=== PATIENT | female | born 1970 | race Caucasian/White ===

== ENCOUNTER 2016-10-02 17:45 | Inpatient (IN) | payer MEDICARE, OTHER ==
[2016-10-02] MEDS ORDERED: MIDAZOLAM (PF) 1 MG/ML 5 ML VIAL IV STA (17:47)
[2016-10-02] MEDS ORDERED: SUCCINYLCHOLINE CHLORIDE VIAL 200 MG/10 ML VIAL IV STA (17:48)
[2016-10-02] MEDS ORDERED: PROPOFOL 1,000 MG/100 ML VIAL IV ONE (17:51)
[2016-10-02] MEDS ORDERED: SODIUM CHLORIDE 0.9% 1,000 ML IV STA (17:51)
[2016-10-02 17:54] LABS: Glucose,Whole Blood 159 mg/dL (75-99)
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
[2016-10-02 18:02] LABS: Basophils # (A) 0.1 k/uL (0-0.2); Basophils % (A) 0 %; CH 31.3; CHCM 33.7; Eosinophils # (A) 0.2 k/uL (0-0.7); Eosinophils % (A) 1 %; HCT 44.5 % (34.0-46.0); HDW 3.09; HGB 14.7 gm/dL (11.4-16.0); Luc # (Auto) 0.16; Luc % (Auto) 1; Lymphocytes # (A) 1.2 k/uL (1.0-4.8); Lymphocytes % (A) 8 %; MCH 30.9 pg (25.0-35.0); MCHC 33.1 g/dL (31.0-37.0); MCV 93.3 fL (80.0-100.0); Mean Platelet Volume 7.6; Monocytes # (A) 0.6 k/uL (0-1.0); Monocytes % (A) 4 %; Neutrophils # (A) 12.8 k/uL (1.3-7.7); Neutrophils % (A) 85 %; RBC 4.77 m/uL (3.80-5.40); WBC (Perox) 14.58
[2016-10-02 18:11] LABS: INR 1.1 (<1.2)
--- NOTE | 2016-10-02 18:17 | XR ---
EXAMINATION TYPE: XR chest 1V portable DATE OF EXAM: 10/02/2016 COMPARISON: 04/21/2014 HISTORY: Check tube placement TECHNIQUE: Single frontal view of the chest is obtained. FINDINGS: Endotracheal tube appears in good position. Nasogastric tube appears in good position. The re is some mild infiltrate and atelectasis in the right upper lobe. There is no gross heart failure. There are chest leads. IMPRESSION: New right upper lobe mild infiltrate and atelectasis. Tubing appears in good position. M ild elevated right diaphragm also consistent with volume loss in the right hemithorax.
[2016-10-02 18:18] LABS: ALT 33 U/L (9-52); AST 30 U/L (14-36); Acetaminophen <10.0 ug/mL; Alcohol <10 mg/dL; Alkaline Phosphatase 76 U/L (38-126); Anion Gap 13 mmol/L; Blood Urea Nitrogen 12 mg/dL (7-17); Calcium 8.6 mg/dL (8.4-10.2); Carbon Dioxide 20 mmol/L (22-30); Chloride 114 mmol/L (98-107); Glucose 152 mg/dL (74-99); Non-African American GFR(MDRD) >60 (>60 ml/min/1.73 sqM); Salicylate <1.0 mg/dL; Sodium 147 mmol/L (137-145); Total Bilirubin 0.8 mg/dL (0.2-1.3); Total Protein 6.9 g/dL (6.3-8.2)
[2016-10-02 18:25] LABS: Creatine Kinase 388 U/L (30-135)
[2016-10-02 18:32] LABS: Appearance,Urine Cloudy (Clear); Bilirubin,Urine Negative (Negative); Glucose,Urine (UA) Negative (Negative); Ketones,Urine 1+ (Negative); Leukocyte Esterase,Urine Moderate (Negative); Mucus,Urine Rare /hpf; Nitrite,Urine Negative (Negative); Particle Count 74300; Protein,Urine 1+ (Negative); RBC,Urine 2 /hpf (0-5); Specific Gravity,Urine 1.016 (1.001-1.035); Squamous Epithelial Cell,Urine <1 /hpf (0-4); UA Billing (MACRO vs. MICRO) MICRO; WBC,Urine 6 /hpf (0-5)
[2016-10-02] MEDS ORDERED: PNEUMONIA PROTOCOL UTILIZED 1 EACH MISC PO PRN (18:35)
[2016-10-02] MEDS ORDERED: PIPERACILLIN-TAZOBACTAM 3.375 GM in DEXTROSE/WATER 1 50ML.BAG IVPB STA (18:35)
[2016-10-02] MEDS ORDERED: LEVOFLOXACIN 750MG-D5W PMX 750 MG in DEXTROSE/WATER 1 150ML.BAG IVPB STA (18:35)
[2016-10-02 18:38] LABS: Troponin I <0.012 ng/mL (0.000-0.034)
[2016-10-02 18:44] LABS: Creatine Kinase MB 4.6 ng/mL (0.0-2.4)
[2016-10-02 19:02] LABS: ABG Base Excess -2.3 mmol/L; ABG HCO3 22 mmol/L (21-25); ABG PCO2 40 mmHg (35-45); ABG PH 7.36 (7.35-7.45); ABG PO2 279 mmHg (83-108); ABG TCO2 24 mmol/L (19-24)
[2016-10-02] MEDS ORDERED: NALOXONE 0.4 MG/ML 1 ML VIAL IV PRN (19:30)
[2016-10-02] MEDS ORDERED: SODIUM CHLORIDE 0.9% 1,000 ML IV SCH (19:30)
[2016-10-02 20:41] LABS: Glucose,Whole Blood 134 mg/dL (75-99)
[2016-10-02] MEDS: PIPERACILLIN-TAZOBACTAM 3.375 GM in DEXTROSE/WATER 1 50ML.BAG IVPB SCH (21:17)
[2016-10-02] MEDS: CHLORHEXIDINE GLUCONATE 15 ML CUP MUCOUS MEM SCH (21:17)
[2016-10-02] MEDS: FAMOTIDINE 20 MG/2 ML VIAL IV SCH (21:17)
[2016-10-02] MEDS ORDERED: Magnesium Replacement Protocol 1 EACH MISC MISCELLANE PRN (23:07)
[2016-10-03] MEDS: MAGNESIUM SULFATE-D5W PMX 1 GM in DEXTROSE/WATER 1 100ML.BAG IVPB SCH ×2 (00:01→01:04)
[2016-10-03] MEDS: SODIUM CHLORIDE 0.45% 1,000 ML IV SCH ×6 (00:01→23:47)
[2016-10-03] MEDS: HEPARIN SODIUM,PORCINE 5,000 UNIT/ML 1 ML VIAL SQ SCH ×4 (00:02→23:48)
[2016-10-03] MEDS: PROPOFOL 1,000 MG/100 ML VIAL IV SCH ×5 (00:02→23:48)
[2016-10-03 01:05] LABS: Glucose,Whole Blood 134 mg/dL (75-99)
[2016-10-03 01:16] LABS: Basophils # (A) 0.1 k/uL (0-0.2); Basophils % (A) 1 %; CH 30.9; CHCM 33.2; Eosinophils # (A) 0.2 k/uL (0-0.7); Eosinophils % (A) 1 %; HCT 41.2 % (34.0-46.0); HDW 3.09; HGB 13.5 gm/dL (11.4-16.0); Luc # (Auto) 0.16; Luc % (Auto) 1; Lymphocytes # (A) 1.4 k/uL (1.0-4.8); Lymphocytes % (A) 10 %; MCH 30.7 pg (25.0-35.0); MCHC 32.7 g/dL (31.0-37.0); MCV 93.7 fL (80.0-100.0); Mean Platelet Volume 7.6; Monocytes # (A) 0.8 k/uL (0-1.0); Monocytes % (A) 6 %; Neutrophils # (A) 11.5 k/uL (1.3-7.7); Neutrophils % (A) 82 %; RDW 15.3 % (11.5-15.5); WBC 14.1 k/uL (3.8-10.6); WBC (Perox) 14.05
[2016-10-03] MEDS ORDERED: CALCIUM GLUCONATE 1,000 MG in SODIUM CHLORIDE 0.9% 100 ML IVPB ONE (03:50)
[2016-10-03] MEDS: PIPERACILLIN-TAZOBACTAM 3.375 GM in DEXTROSE/WATER 1 50ML.BAG IVPB SCH ×3 (04:17→23:46)
[2016-10-03 05:24] LABS: Basophils # (A) 0.1 k/uL (0-0.2); Basophils % (A) 0 %; CH 30.6; Eosinophils # (A) 0.3 k/uL (0-0.7); Eosinophils % (A) 2 %; HCT 42.8 % (34.0-46.0); HDW 3.18; HGB 14.7 gm/dL (11.4-16.0); Luc # (Auto) 0.26; Luc % (Auto) 2; Lymphocytes # (A) 1.7 k/uL (1.0-4.8); Lymphocytes % (A) 10 %; MCHC 34.3 g/dL (31.0-37.0); MCV 90.4 fL (80.0-100.0); Mean Platelet Volume 8.4; Monocytes # (A) 0.7 k/uL (0-1.0); Monocytes % (A) 5 %; Neutrophils # (A) 13.1 k/uL (1.3-7.7); Neutrophils % (A) 82 %; RBC 4.74 m/uL (3.80-5.40); RDW 14.3 % (11.5-15.5); WBC 16.1 k/uL (3.8-10.6); WBC (Perox) 16.01
[2016-10-03 05:27] LABS: ABG Base Excess -0.9 mmol/L; ABG HCO3 24 mmol/L (21-25); ABG PCO2 32 mmHg (35-45); ABG PH 7.46 (7.35-7.45); ABG PO2 87 mmHg (83-108); ABG TCO2 24 mmol/L (19-24)
[2016-10-03 05:59] LABS: ALT 27 U/L (9-52); AST 27 U/L (14-36); Alkaline Phosphatase 67 U/L (38-126); Anion Gap 11 mmol/L; Blood Urea Nitrogen 12 mg/dL (7-17); Calcium 8.6 mg/dL (8.4-10.2); Carbon Dioxide 23 mmol/L (22-30); Chloride 113 mmol/L (98-107); Glucose 86 mg/dL (74-99); Magnesium 2.6 mg/dL (1.6-2.3); Non-African American GFR(MDRD) >60 (>60 ml/min/1.73 sqM); Phosphorous 3.3 mg/dL (2.5-4.5); Sodium 147 mmol/L (137-145); Total Bilirubin 0.4 mg/dL (0.2-1.3)
[2016-10-03] MEDS: LORazepam 2 MG/ML SYRINGE IV PRN ×3 (06:05→20:36)
[2016-10-03 06:53] LABS: Glucose,Whole Blood 90 mg/dL (75-99)
[2016-10-03] MEDS: IPRATROPIUM-ALBUTEROL 3 ML NEB INHALATION PRN ×5 (07:59→23:00)
--- NOTE | 2016-10-03 08:07 | XR ---
EXAMINATION TYPE: XR chest 1V DATE OF EXAM: 10/03/2016 COMPARISON: 10/02/2016 HISTORY: Shortness of breath TECHNIQUE: Single frontal view of the chest is obtained. FINDINGS: Endotracheal and NG tubes are unchanged in position. There is new airspace consolidation right lower lobe which may reflect atelectasis infiltrate and/or effusion. The left lung is clear. Cardiomediasti nal silhouette is stable. IMPRESSION: 1. There is new airspace consolidation right lower lobe which may reflect atelectasis infiltrate and /or effusion.
[2016-10-03] MEDS ORDERED: ESOMEPRAZOLE 20 MG in SODIUM CHLORIDE 0.9% 50 ML IVPB SCH (09:00)
[2016-10-03] MEDS: CHLORHEXIDINE GLUCONATE 15 ML CUP MUCOUS MEM SCH ×2 (09:07→23:46)
[2016-10-03] MEDS: FAMOTIDINE 20 MG/2 ML VIAL IV SCH ×2 (09:07→23:46)
[2016-10-03 11:14] LABS: Basophils # (A) 0.1 k/uL (0-0.2); Basophils % (A) 1 %; CH 31.5; CHCM 34.4; Eosinophils # (A) 0.1 k/uL (0-0.7); Eosinophils % (A) 1 %; HCT 38.6 % (34.0-46.0); HDW 3.07; HGB 13.2 gm/dL (11.4-16.0); Immature Gran Flag Marked; Luc # (Auto) 0.14; Luc % (Auto) 1; Lymphocytes # (A) 0.6 k/uL (1.0-4.8); Lymphocytes % (A) 4 %; MCH 31.4 pg (25.0-35.0); MCHC 34.1 g/dL (31.0-37.0); MCV 92.1 fL (80.0-100.0); Mean Platelet Volume 9.1; Monocytes # (A) 0.7 k/uL (0-1.0); Monocytes % (A) 5 %; Neutrophils # (A) 11.3 k/uL (1.3-7.7); Neutrophils % (A) 88 %; RDW 14.9 % (11.5-15.5); WBC 12.8 k/uL (3.8-10.6); WBC (Perox) 13.24
--- NOTE | 2016-10-03 11:18 | P.CNPUL ---
History of Present Illness Consult date: 10/03/16 Requesting physician: Angelito Galvan Reason for consult: other Chief complaint: ICU mangement History of present illness: This is a 46-year-old female patient being seen, examined and evaluated today in the intensive care unit. This patient presented to the emergency room on via EMS for overdose. Apparently the patient was at home and her roommate found her unresponsive around multiple bottles of pills, therefore the roommate forced her to vomit before EMS arrival. When EMS arrived they did no there was pill fragments in her vomit. EMS did give the patient Narcan with minimal improvement of her symptoms. It is unclear what medications the patient did consume however there is speculation that it was morphine, gabapentin as well as baclofen. The patient's urine drug screen was positive for opiates, tricyclic antidepressants, cocaine and marijuana. Poison control has been contacted and they have been assisting in the case as well. Upon examination the patient is in sync with mechanical ventilation, propofol on for sedation. Ventilator settings are assist control with a rate of 14, tidal volume 400, FiO2 of 50%, and a PEEP of 5. She has had blood pressures systolically 90s and average, she has not required vasopressors at this time. Patient's chest x-ray from this morning has been reviewed and does reveal that there is a new air space consolidation in the right lower lobe which may reflect atelectasis infiltrate and/or effusion. The patient also underwent a sedation holiday this morning her propofol was off for approximately 60 minutes. The patient was able to move all 4 extremities she did have a cough and a gag reflex, she was thrashing in the bed however she never opened her eyes , never followed commands and her respiratory rate was in the 40s, therefore she was put back on assist control mode. Currently there is no family listed in the chart, she has no power of prep cook or next of kin that we are aware of, we will look to get anymore information from the roommate that found her. Of note, according the the timeline of when the patient ingested the pills and vomited untill the roommate called EMS was a 12 hour span that the patient was "passed out". It is unclear if the patient woke up and took more pills in between vomiting the pills up the first time, untill she found unresponsive 12 hours later. 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" History of Any Multi-Drug Resistant Organisms: None Reported, Unobtainable Past Surgical History: Unable to Obtain, Appendectomy, Tubal Ligation Additional Past Surgical History / Comment(s): neck fusion Past Anesthesia/Blood Transfusion Reactions: No Reported Reaction, Unable to Obtain Past Psychological History: No Psychological Hx Reported, Unable to Obtain Smoking Status: Unknown if ever smoked Past Alcohol Use History: None Reported, Unable to Obtain Past Drug Use History: None Reported, Unable to Obtain Additional Drug Use History / Comment(s): tox screen positive - Past Family History Father History Unknown: Yes Family Medical History: Unable to Obtain Mother History Unknown: Yes Family Medical History: Unable to Obtain Medications and Allergies Home Medications Medication Instructions Recorded Confirmed Type Baclofen [Lioresal] 20 mg PO TID 10/02/16 10/02/16 History Choline Citrate 650mg 650 mg PO BID 10/02/16 10/02/16 History Cyanocobalamin (Vitamin B-12) 1,000 mcg PO DAILY 10/02/16 10/02/16 History [Vitamin B-12] Folic Acid 0.4 mg PO DAILY 10/02/16 10/02/16 History Gabapentin 600 mg PO Q4H 10/02/16 10/02/16 History HYDROcodone/IBUPROFEN [Xylon 0.5 tab PO BID 10/02/16 10/02/16 History 10-200 mg Tablet] Levothyroxine Sodium [Synthroid] 137 mcg PO DAILY 10/02/16 10/02/16 History Loratadine 10 mg PO DAILY 10/02/16 10/02/16 History Morphine Sulfate [Ms Contin] 15 mg PO HS 10/02/16 10/02/16 History Morphine Sulfate [Ms Contin] 30 mg PO QAM 10/02/16 10/02/16 History Naproxen 500 mg PO Q12H 10/02/16 10/02/16 History Nortriptyline [Pamelor] 100 mg PO HS 10/02/16 10/02/16 History Omeprazole 40 mg PO DAILY 10/02/16 10/02/16 History Oxybutynin Chloride [Ditropan] 5 mg PO TID 10/02/16 10/02/16 History Pyridoxine [Vitamin B-6] 50 mg PO DAILY 10/02/16 10/02/16 History Allergies Allergy/AdvReac Type Severity Reaction Status Date / Time acetaminophen Allergy Unknown Verified 10/02/16 17:54 aspirin Allergy Rash/Hives Verified 10/02/16 17:54 DAIRY Allergy Vomiting Uncoded 10/02/16 17:54 Physical Exam Vitals: Vital Signs Temp Pulse Pulse Resp BP BP Pulse Ox 10/03/16 10:00 97 14 71/46 99 10/03/16 09:30 100 14 97/65 99 10/03/16 09:00 106 H 17 116/69 100 10/03/16 08:30 105 H 14 90/52 99 10/03/16 08:10 106 H 10/03/16 08:00 99.3 F 106 H 15 98/61 100 10/03/16 07:30 109 H 19 109/66 99 10/03/16 07:00 105 H 17 124/73 100 10/03/16 06:30 102 H 16 143/76 99 10/03/16 06:00 118 H 22 143/82 98 10/03/16 05:30 89 12 151/91 98 10/03/16 05:00 98 15 117/75 99 10/03/16 04:30 84 14 138/82 98 10/03/16 04:00 98.4 F 98 16 116/76 99 10/03/16 03:30 85 14 110/73 99 10/03/16 03:00 85 14 108/74 99 10/03/16 02:30 86 12 106/76 97 10/03/16 02:00 86 14 102/73 95 10/03/16 01:30 90 13 120/81 94 L 10/03/16 01:00 90 11 L 108/84 92 L 10/03/16 00:30 88 12 114/84 92 L 10/03/16 00:00 98.1 F 87 16 143/76 94 L 10/02/16 23:30 98 16 94/57 98 10/02/16 23:08 90 14 94/57 90 L 10/02/16 23:00 94 15 94/57 91 L 10/02/16 22:30 86 17 104/71 93 L 10/02/16 22:00 90 14 110/65 93 L 10/02/16 21:30 92 15 92/70 93 L 10/02/16 21:00 94 144/88 90 L 10/02/16 20:50 98.1 F 89 144/88 94 L 10/02/16 20:40 90 10/02/16 19:51 98.1 F 85 18 102/73 92 L 10/02/16 19:19 77 14 132/80 10/02/16 19:00 97.5 F L 78 14 145/80 100 10/02/16 18:45 80 14 143/80 100 10/02/16 18:30 97.4 F L 78 14 148/79 100 10/02/16 18:15 90 14 146/80 100 10/02/16 18:00 94 14 159/86 100 10/02/16 17:47 109 H 12 158/87 94 L 10/02/16 17:45 12 Intake and Output 10/02/16 10/03/16 10/03/16 22:59 06:59 14:59 Intake Total 320 2699.280 9495.196 Output Total 1915 1015 280 Balance -1595 416.760 2554.196 Intake: IV 320 1800 1850 Esomeprazole 20 mg In 50 Sodium Chloride 0.9% 50 ml @ 100 mls/hr IVPB DAILY SUNITHA Rx#:[id number] Magnesium Sulfate-D5w Pmx 200 1 gm In Dextrose/Water 1 100ml.bag @ 100 mls/hr IVPB Q1H SUNITHA Rx#: [id number] Sodium Chloride 0.45% 1, 200 1600 800 000 ml @ 200 mls/hr IV . Q5H SUNITHA Rx#:[id number] Sodium Chloride 0.9% 1, 1000 000 ml @ 100 mls/hr IV . Q10H STA Rx#:[id number] Sodium Chloride 0.9% 1, 120 000 ml @ 120 mls/hr IV . Q8H20M SUNITHA Rx#:[id number] Intake, IV Titration 107.988 93.196 Amount Propofol 1,000 mg In 100 107.988 93.196 ml @ Titrate IV .Q0M SUNITHA Rx#:[id number] Output: Gastric Drainage 500 Urine 1915 515 280 Uretheral (Beyer) 1600 Other: Voiding Method Indwelling Catheter Indwelling Catheter # Bowel Movements 0 Weight 80.3 kg 80.1 kg 80.1 kg Patient Weight 10/04/16 06:59 Weight 80.1 kg GENERAL EXAM: On mechanical ventilation with propofol for sedation HEAD: Normocephalic. EYES: Or reaction of pupils, equal size. NOSE: Clear with pink turbinates. THROAT: No erythema or exudates. hypoactive cough and gag reflex NECK: No masses, no JVD. CHEST: No chest wall deformity. LUNGS: Equal air entry noted to be coarse with no crackles, wheeze, rhonchi or dullness. Bases diminished CVS: S1 and S2 normal with no audible mumurs, regular rhythm. ABDOMEN: No hepatosplenomegaly, normal bowel sounds, no guarding or rigidity. EXTREMITIES: trace edema noted, pedal pulses palpable. SKIN: No rashes CENTRAL NERVOUS SYSTEM: On mechanical ventilation with propofol for sedation, withdraws to pain Results - Laboratory Findings CBC and BMP: 10/03/16 10:25 10/03/16 05:13 ABG ABG pH 7.46 (7.35-7.45) H 10/03/16 05:22 ABG pCO2 32 mmHg (35-45) L 10/03/16 05:22 ABG pO2 87 mmHg (83-108) 10/03/16 05:22 ABG O2 Saturation 97.0 % (94-97) 10/03/16 05:22 PT/INR, D-dimer PT 11.0 sec (9.0-12.0) 10/02/16 17:50 INR 1.1 (<1.2) 10/02/16 17:50 Abnormal lab findings: Abnormal Labs 10/02/16 10/02/16 10/02/16 17:50 17:50 17:50 WBC 15.0 H Neutrophils # 12.8 H ABG pH ABG pCO2 ABG pO2 ABG O2 Saturation Sodium 147 H Chloride 114 H Carbon Dioxide 20 L Glucose 152 H POC Glucose (mg/dL) Magnesium Creatine Kinase Total Creatine Kinase 388 H CK-MB (CK-2) 4.6 H* Total Protein Albumin Urine Appearance Urine Protein Urine Ketones Ur Leukocyte Esterase Urine WBC Urine Mucus Urine Opiates Screen U Tricyclic Antidepress Urine Cocaine Screen U Marijuana (THC) Screen 10/02/16 10/02/16 10/02/16 17:52 18:13 18:50 WBC Neutrophils # ABG pH ABG pCO2 ABG pO2 279 H ABG O2 Saturation 100.0 H Sodium Chloride Carbon Dioxide Glucose POC Glucose (mg/dL) 159 H Magnesium Creatine Kinase Total Creatine Kinase CK-MB (CK-2) Total Protein Albumin Urine Appearance Cloudy H Urine Protein 1+ H Urine Ketones 1+ H Ur Leukocyte Esterase Moderate H Urine WBC 6 H Urine Mucus Rare H Urine Opiates Screen Detected H U Tricyclic Antidepress Detected H Urine Cocaine Screen Detected H U Marijuana (THC) Screen Detected H 10/02/16 10/03/16 10/03/16 20:40 00:52 01:03 WBC 14.1 H Neutrophils # 11.5 H ABG pH ABG pCO2 ABG pO2 ABG O2 Saturation Sodium Chloride Carbon Dioxide Glucose POC Glucose (mg/dL) 134 H 134 H Magnesium Creatine Kinase Total Creatine Kinase CK-MB (CK-2) Total Protein Albumin Urine Appearance Urine Protein Urine Ketones Ur Leukocyte Esterase Urine WBC Urine Mucus Urine Opiates Screen U Tricyclic Antidepress Urine Cocaine Screen U Marijuana (THC) Screen 10/03/16 10/03/16 10/03/16 02:22 05:13 05:13 WBC 16.1 H Neutrophils # 13.1 H ABG pH ABG pCO2 ABG pO2 ABG O2 Saturation Sodium 147 H Chloride 113 H Carbon Dioxide Glucose POC Glucose (mg/dL) Magnesium 2.6 H Creatine Kinase 541 H Total Creatine Kinase CK-MB (CK-2) Total Protein 6.0 L Albumin 3.4 L Urine Appearance Urine Protein Urine Ketones Ur Leukocyte Esterase Urine WBC Urine Mucus Urine Opiates Screen U Tricyclic Antidepress Urine Cocaine Screen U Marijuana (THC) Screen 10/03/16 05:22 WBC Neutrophils # ABG pH 7.46 H ABG pCO2 32 L ABG pO2 ABG O2 Saturation Sodium Chloride Carbon Dioxide Glucose POC Glucose (mg/dL) Magnesium Creatine Kinase Total Creatine Kinase CK-MB (CK-2) Total Protein Albumin Urine Appearance Urine Protein Urine Ketones Ur Leukocyte Esterase Urine WBC Urine Mucus Urine Opiates Screen U Tricyclic Antidepress Urine Cocaine Screen U Marijuana (THC) Screen - Diagnostic Findings Chest x-ray: report reviewed, image reviewed Assessment and Plan Plan: Assessment Acute hypoxic respiratory failure Aspiration pneumonia Sepsis Drug overdose, unclear if it was intentional or unintentional Hypotension Plan Medications have been reviewed and will be continued as ordered. We will stay in close contact with poison control and appreciate recommendations from them. She will remain on mechanical ventilation today. Continue with sedation holidays daily. May start Levo to maintain MAP of 65 for hypotension. Continue with IV antibiotics. Continue with pulmonary hygiene, coughing and deep breathing exercises, and supportive care. Supplemental oxygen to maintain oxygen saturations of 92% or better. Continue nebulizer treatments. Sputum and blood cultures pending. Monitor and replace electrolytes per protocol. Repeat chest x-ray and labs in the morning. GI and DVT prophylaxis. We will continue to monitor labs/results and adjust treatment as necessary. Further recommendations pending. I performed an examination of the patient and discussed their management with the nurse practitioner. I have reviewed the nurse practitioner's note and agree with the documented findings and plan of care.
[2016-10-03 12:00] LABS: Glucose,Whole Blood 104 mg/dL (75-99)
[2016-10-03 12:08] LABS: Creatine Kinase MB 3.2 ng/mL (0.0-2.4)
[2016-10-03] MEDS ORDERED: NOREPINEPHRIN 4 MG-0.9% NS PMX 4 MG/250 ML ML IV SCH (13:30)
[2016-10-03 14:07] LABS: Manual Review Performed; Toxic Granulation Present
[2016-10-03 16:31] LABS: Basophils # (A) 0.1 k/uL (0-0.2); Basophils % (A) 0 %; CH 31.2; CHCM 33.6; Eosinophils # (A) 0.1 k/uL (0-0.7); Eosinophils % (A) 1 %; HCT 36.7 % (34.0-46.0); HDW 3.05; HGB 12.1 gm/dL (11.4-16.0); Immature Gran Flag Marked; Luc # (Auto) 0.12; Luc % (Auto) 1; Lymphocytes # (A) 1.2 k/uL (1.0-4.8); Lymphocytes % (A) 6 %; MCH 30.7 pg (25.0-35.0); MCHC 32.9 g/dL (31.0-37.0); MCV 93.5 fL (80.0-100.0); Mean Platelet Volume 7.4; Monocytes # (A) 0.7 k/uL (0-1.0); Monocytes % (A) 3 %; Neutrophils # (A) 18.6 k/uL (1.3-7.7); Neutrophils % (A) 90 %; RBC 3.92 m/uL (3.80-5.40); RDW 14.8 % (11.5-15.5); WBC 20.7 k/uL (3.8-10.6); WBC (Perox) 21.92
[2016-10-03 16:52] LABS: Manual Review Performed
--- NOTE | 2016-10-03 17:47 | HP ---
CHIEF COMPLAINT: Overdose, acute respiratory distress. HISTORY OF PRESENT ILLNESS: This is a 46 year old unresponsive white female, came in to the ER after reported medication ingestion. ER called poison control. Intubated her due to aggressive behavior and vomiting up some pill fragments in the ER. Nonresponsive to 4 mg of Narcan, possibly took morphine and one Gabapentin pill at home. She was admitted, possible aspiration pneumonia, acute respiratory distress. Home medications: 1. Lioresal. 2. ( ) citrate. 3. Vitamin B12, 4. Folic acid. 5. Gabapentin. 6. Hydrocodone. 7. Ibuprofen. 8. Levothyroxine. 9. Loratadine. 10. MS Contin. 11. Naprosyn. 12. Pamelor. 13. Omeprazole. 14. Ditropan. ALLERGIES ARE TO ACETAMINOPHEN, ASPIRIN, DAIRY. 14 point review of systems negative. From what I could obtain from the records , the patient is on the vent. Past medical history: Some kind of hypothyroidism, spinal cord stroke, chronic pain syndrome of unknown etiology that I can tell Surgical history of appendectomy, tubal ligation. Physical exam: She is on the ventilator at this time. Blood pressure is 150s/ 80s. Vent sounds and respiratory 12. Pulses in the low 100s. Temperature 97.4. 100% on the vent. Endocrine: BMI over 30. Respiratory some scattered wheeze and rhonchi. Cardiovascular S1, S2 tachy. GI: Distended due to obesity. She has 2+ pedal edema bilaterally. Neurological: She moves four extremities. Ophthalmological: Pupils are equal, round and responsive. Withdraws to pain and comprehensible sounds. Labs are reviewed. ICU notes are reviewed. Chest x-ray aspiration pneumonia. Labs show white count 15. Sodium 147. BUN 12, creatinine 0.75. EKG sinus rhythm. Glucose 152. ( ) 388, index 1.2. Troponin negative. Alcohol less than 10. Salicylate less than 1. Albumin 4, ( ) less than 10. ABG pH 7.36, pCO2 40, PO2 279. Bicarb is 22. Total CO2 24. UA is positive for opiates, tricyclic antidepressants, cocaine, marijuana. ASSESSMENT: 1. Acute drug overdose. 2. Polysubstance abuse. 3. Acute hypoxemic respiratory failure. 4. Probable suicide attempt. Psychiatry is ordered. 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 Poison control has been contacted. Maintain vasopressors. Wean off vent as tolerated. Watch for signs of withdrawal. IV antibiotics for aspiration pneumonia. Monitor laboratories. Prognosis extremely guarded. ICU time 60 minutes. MTDD
[2016-10-03] MEDS ORDERED: IV VANCOMYCIN PER PHARMACY 1 EACH MISC MISCELLANE PRN (18:27)
[2016-10-03] MEDS: LEVOFLOXACIN 750MG-D5W PMX 750 MG in DEXTROSE/WATER 1 150ML.BAG IVPB SCH (18:53)
[2016-10-03 19:21] LABS: Glucose,Whole Blood 147 mg/dL (75-99)
[2016-10-03] MEDS: VANCOMYCIN 1,500 MG in SODIUM CHLORIDE 0.9% 250 ML IVPB SCH (19:59)
[2016-10-04 00:23] LABS: Glucose,Whole Blood 115 mg/dL (75-99)
[2016-10-04] MEDS: IPRATROPIUM-ALBUTEROL 3 ML NEB INHALATION PRN ×4 (02:29→19:00)
[2016-10-04] MEDS: LORazepam 2 MG/ML SYRINGE IV PRN ×4 (03:17→17:50)
[2016-10-04] MEDS: SODIUM CHLORIDE 0.45% 1,000 ML IV SCH ×4 (04:35→21:24)
[2016-10-04] MEDS: PROPOFOL 1,000 MG/100 ML VIAL IV SCH ×4 (04:35→18:02)
[2016-10-04] MEDS: PIPERACILLIN-TAZOBACTAM 3.375 GM in DEXTROSE/WATER 1 50ML.BAG IVPB SCH ×3 (04:37→21:23)
[2016-10-04 05:43] LABS: Basophils % (A) 0 %; CH 30.6; CHCM 32.4; Eosinophils # (A) 0.2 k/uL (0-0.7); Eosinophils % (A) 1 %; HCT 35.9 % (34.0-46.0); HDW 3.06; HGB 11.7 gm/dL (11.4-16.0); Luc # (Auto) 0.17; Luc % (Auto) 1; Lymphocytes # (A) 1.1 k/uL (1.0-4.8); Lymphocytes % (A) 7 %; MCHC 32.7 g/dL (31.0-37.0); MCV 94.8 fL (80.0-100.0); Mean Platelet Volume 7.5; Monocytes # (A) 0.7 k/uL (0-1.0); Monocytes % (A) 4 %; Neutrophils # (A) 13.8 k/uL (1.3-7.7); Neutrophils % (A) 87 %; RBC 3.79 m/uL (3.80-5.40); RDW 14.3 % (11.5-15.5); WBC (Perox) 17.07
[2016-10-04 05:53] LABS: INR 1.2 (<1.2)
[2016-10-04 05:57] LABS: ALT 25 U/L (9-52); AST 19 U/L (14-36); Alkaline Phosphatase 45 U/L (38-126); Anion Gap 10 mmol/L; Blood Urea Nitrogen 8 mg/dL (7-17); Calcium 7.6 mg/dL (8.4-10.2); Carbon Dioxide 19 mmol/L (22-30); Chloride 113 mmol/L (98-107); Glucose 109 mg/dL (74-99); Magnesium 2.1 mg/dL (1.6-2.3); Non-African American GFR(MDRD) >60 (>60 ml/min/1.73 sqM); Phosphorous 2.5 mg/dL (2.5-4.5); Potassium 3.6 mmol/L (3.5-5.1); Sodium 142 mmol/L (137-145); Total Bilirubin 0.5 mg/dL (0.2-1.3); Total Protein 5.2 g/dL (6.3-8.2)
[2016-10-04] MEDS ORDERED: Potassium Replacement Protocol 1 EACH MISC MISCELLANE PRN (06:04)
[2016-10-04] MEDS ORDERED: POTASSIUM CHLORIDE ORAL LIQUID 40 MEQ/30 ML CUP NG-TUBE SCH ×2 (07:00→13:00)
[2016-10-04] MEDS: VANCOMYCIN 1,500 MG in SODIUM CHLORIDE 0.9% 250 ML IVPB SCH ×2 (07:05→21:24)
[2016-10-04 07:18] LABS: Glucose,Whole Blood 110 mg/dL (75-99)
[2016-10-04 07:45] LABS: ABG PH 7.45 (7.35-7.45)
[2016-10-04 07:46] LABS: ABG Base Excess -2.8 mmol/L; ABG HCO3 21 mmol/L (21-25); ABG PCO2 30 mmHg (35-45); ABG PO2 162 mmHg (83-108); ABG TCO2 22 mmol/L (19-24)
--- NOTE | 2016-10-04 08:02 | XR ---
EXAMINATION TYPE: XR chest 1V DATE OF EXAM: 10/04/2016 COMPARISON: 10/03/2016 HISTORY: SOB, Follow Up FINDINGS: Indwelling tubes and catheters are unchanged. No change in right basilar infiltrate, atelectasis and/or effusion. Stable appearance of the cardio-mediastinal structures at this time. Pleural effusion unchanged. IMPRESSION: 1. Stable portable chest. Clinical correlation and follow up until resolution is recommended.
[2016-10-04] MEDS: HEPARIN SODIUM,PORCINE 5,000 UNIT/ML 1 ML VIAL SQ SCH ×2 (09:01→16:09)
[2016-10-04] MEDS: CHLORHEXIDINE GLUCONATE 15 ML CUP MUCOUS MEM SCH ×2 (09:01→21:20)
[2016-10-04] MEDS: FAMOTIDINE 20 MG/2 ML VIAL IV SCH ×2 (09:01→21:20)
[2016-10-04] MEDS ORDERED: ATROPINE SULFATE 0.1 MG/ML 10ML SYRINGE ONE (10:28)
--- NOTE | 2016-10-04 11:10 | XR ---
EXAMINATION TYPE: XR chest 1V confirm line [id number] DATE OF EXAM: 10/04/2016 CLINICAL HISTORY: Difficulty breathing progress study. TECHNIQUE: Single AP portable upright view of the chest is obtained. COMPARISON: Chest x-ray from same day FINDINGS: Right IJ central venous line with its distal tip overlying the SVC. No evidence for pneumothorax. End otracheal and NG tubes are unchanged in position. Stable right basilar airspace consolidation with pleural effusion. IMPRESSION: Overall stable findings, central venous line as noted.
[2016-10-04] MEDS ORDERED: CALCIUM GLUCONATE 2,000 MG in SODIUM CHLORIDE 0.9% 100 ML IVPB ONE (11:30)
[2016-10-04] MEDS: MAGNESIUM SULFATE-D5W PMX 1 GM in DEXTROSE/WATER 1 100ML.BAG IVPB SCH ×2 (11:48→13:01)
--- NOTE | 2016-10-04 11:48 | P.PN ---
Subjective Principal diagnosis: This is a 46-year-old female patient being seen, examined and evaluated today in the intensive care unit. This patient presented to the emergency room on via EMS for overdose. Apparently the patient was at home and her roommate found her unresponsive around multiple bottles of pills, therefore the roommate forced her to vomit before EMS arrival. When EMS arrived they did no there was pill fragments in her vomit. EMS did give the patient Narcan with minimal improvement of her symptoms. It is unclear what medications the patient did consume however there is speculation that it was morphine, gabapentin as well as baclofen. The patient's urine drug screen was positive for opiates, tricyclic antidepressants, cocaine and marijuana. Poison control has been contacted and they have been assisting in the case as well. Upon examination the patient is in sync with mechanical ventilation, propofol on for sedation. Ventilator settings are assist control with a rate of 14, tidal volume 400, FiO2 of 50%, and a PEEP of 5. She has had blood pressures systolically 90s and average, she has not required vasopressors at this time. Patient's chest x-ray from this morning has been reviewed and does reveal that there is a new air space consolidation in the right lower lobe which may reflect atelectasis infiltrate and/or effusion. The patient also underwent a sedation holiday this morning her propofol was off for approximately 60 minutes. The patient was able to move all 4 extremities she did have a cough and a gag reflex, she was thrashing in the bed however she never opened her eyes , never followed commands and her respiratory rate was in the 40s, therefore she was put back on assist control mode. Currently there is no family listed in the chart, she has no power of criminal attorney or next of kin that we are aware of, we will look to get anymore information from the roommate that found her. Of note, according the the timeline of when the patient ingested the pills and vomited untill the roommate called EMS was a 12 hour span that the patient was "passed out". It is unclear if the patient woke up and took more pills in between vomiting the pills up the first time, untill she found unresponsive 12 hours later. 03/06/17, patient seen and evaluated and examined remains intermittently hypotensive in spite of aggressive fluid resuscitation attempts were A-line has been unsuccessful patient will need a central line main somewhat comatose in spite of weaning the propofol drip and neurology consultation is being obtained. Care plan discussed with the poison control as well but does condition is related to baclofen patient mental status however remains marginal she becomes anxious and agitated when propofol is being tapered down her chest x -ray from today is reviewed she has a dense infiltrate in the right lower lobe she is tolerating every feed very well been on DVT and peptic ulcer disease prophylaxis as well , I have discussed at length with the with the family present at bedside including daughter and sister, about the care plan and prognosis proceed with a central line placement for lites and try to keep magnesium over 2-3 and potassium over 4 calcium as well must see orders for detail. Patient remains on full ventilatory support current vent settings are assist control rate of 14 tidal volume of 400. 5 of PEEP and FiO2 down to 50% Objective - Vital Signs Vital signs: Vital Signs Temp 98.2 F 10/04/16 08:00 Pulse 87 10/04/16 11:30 Resp 23 10/04/16 11:00 BP 148/70 10/04/16 11:00 Pulse Ox 100 10/04/16 11:00 Intake & Output 10/03/16 10/04/16 10/04/16 18:59 06:59 18:59 Intake Total 4205.246 3715.568 1486.584 Output Total 1790 2250 1000 Balance 2415.246 1465.568 486.584 Weight 80.1 kg 83.2 kg Intake: IV 3950 2887.5 1262.5 Esomeprazole 20 mg In 50 Sodium Chloride 0.9% 50 ml @ 100 mls/hr IVPB DAILY [facility] Rx#:[id number] Levofloxacin 750Mg-D5w 150 Pmx 750 mg In Dextrose/ Water 1 150ml.bag @ 100 mls/hr IVPB Q24H [facility] Rx#: [id number] Piperacillin-Tazobactam 3 87.5 12.5 .375 gm In Dextrose/Water 1 50ml.bag @ 12.5 mls/hr IVPB Q8H [facility] Rx#: [id number] Sodium Chloride 0.45% 1, 2400 2400 1000 000 ml @ 200 mls/hr IV . Q5H [facility] Rx#:[id number] Sodium Chloride 0.9% 1, 1500 000 ml @ 100 mls/hr IV . Q10H [facility] Rx#:[id number] Vancomycin 1,500 mg In 250 250 Sodium Chloride 0.9% 250 ml @ 125 mls/hr IVPB Q12H [facility] Rx#:[id number] Intake, IV Titration 255.246 478.068 134.084 Amount Norepinephrin 4 mg-0.9% 85.563 159.75 4.687 Ns Pmx 4 mg In 250 ml @ Titrate IV .Q0M [facility] Rx#: [id number] Propofol 1,000 mg In 100 169.683 193.318 129.397 ml @ Titrate IV .Q0M [facility] Rx#:[id number] Vancomycin 1,500 mg In 125 Sodium Chloride 0.9% 250 ml @ 125 mls/hr IVPB Q12H [facility] Rx#:[id number] Tube Feeding 260 60 Other 90 30 Output: Urine 1790 2250 1000 Other: Voiding Method Indwelling Catheter Indwelling Catheter # Bowel Movements 0 - Exam GENERAL EXAM: On mechanical ventilation with propofol for sedation, he will fed those being adjusted due to hyponatremia patient remains on half normal saline HEAD: Normocephalic. EYES: Or reaction of pupils, equal size. NOSE: Clear with pink turbinates. THROAT: No erythema or exudates. hypoactive cough and gag reflex NECK: No masses, no JVD. CHEST: No chest wall deformity. LUNGS: Equal air entry noted to be coarse with no crackles, wheeze, rhonchi or dullness. Bases diminished CVS: S1 and S2 normal with no audible mumurs, regular rhythm. ABDOMEN: No hepatosplenomegaly, normal bowel sounds, no guarding or rigidity. EXTREMITIES: trace edema noted, pedal pulses palpable. SKIN: No rashes CENTRAL NERVOUS SYSTEM: On mechanical ventilation with propofol for sedation, withdraws to pain - Labs CBC & Chem 7: 10/04/16 05:25 10/04/16 11:00 Labs: Abnormal Lab Results - Last 24 Hours (Table) 10/03/16 10/03/16 10/03/16 Range/Units 10:25 11:09 11:09 WBC 12.8 H (3.8-10.6) k/uL RBC (3.80-5.40) m/uL Plt Count 110 L (150-450) k/uL Neutrophils # 11.3 H (1.3-7.7) k/uL Lymphocytes # 0.6 L (1.0-4.8) k/uL INR (<1.2) ABG pCO2 (35-45) mmHg ABG pO2 (83-108) mmHg ABG O2 Saturation (94-97) % Chloride (98-107) mmol/L Carbon Dioxide (22-30) mmol/L Glucose (74-99) mg/dL POC Glucose (mg/dL) (75-99) mg/dL Calcium (8.4-10.2) mg/dL Creatine Kinase 384 H (30-135) U/L Total Creatine Kinase 373 H (30-135) U/L CK-MB (CK-2) 3.2 H* (0.0-2.4) ng/mL Total Protein (6.3-8.2) g/dL Albumin (3.5-5.0) g/dL 10/03/16 10/03/16 10/03/16 Range/Units 11:59 16:05 16:05 WBC 20.7 H (3.8-10.6) k/uL RBC (3.80-5.40) m/uL Plt Count (150-450) k/uL Neutrophils # 18.6 H (1.3-7.7) k/uL Lymphocytes # (1.0-4.8) k/uL INR (<1.2) ABG pCO2 (35-45) mmHg ABG pO2 (83-108) mmHg ABG O2 Saturation (94-97) % Chloride (98-107) mmol/L Carbon Dioxide (22-30) mmol/L Glucose (74-99) mg/dL POC Glucose (mg/dL) 104 H (75-99) mg/dL Calcium (8.4-10.2) mg/dL Creatine Kinase 345 H (30-135) U/L Total Creatine Kinase (30-135) U/L CK-MB (CK-2) (0.0-2.4) ng/mL Total Protein (6.3-8.2) g/dL Albumin (3.5-5.0) g/dL 10/03/16 10/04/16 10/04/16 Range/Units 19:02 00:22 05:25 WBC 16.0 H (3.8-10.6) k/uL RBC 3.79 L (3.80-5.40) m/uL Plt Count (150-450) k/uL Neutrophils # 13.8 H (1.3-7.7) k/uL Lymphocytes # (1.0-4.8) k/uL INR (<1.2) ABG pCO2 (35-45) mmHg ABG pO2 (83-108) mmHg ABG O2 Saturation (94-97) % Chloride (98-107) mmol/L Carbon Dioxide (22-30) mmol/L Glucose (74-99) mg/dL POC Glucose (mg/dL) 147 H 115 H (75-99) mg/dL Calcium (8.4-10.2) mg/dL Creatine Kinase (30-135) U/L Total Creatine Kinase (30-135) U/L CK-MB (CK-2) (0.0-2.4) ng/mL Total Protein (6.3-8.2) g/dL Albumin (3.5-5.0) g/dL 10/04/16 10/04/16 10/04/16 Range/Units 05:25 05:25 07:16 WBC (3.8-10.6) k/uL RBC (3.80-5.40) m/uL Plt Count (150-450) k/uL Neutrophils # (1.3-7.7) k/uL Lymphocytes # (1.0-4.8) k/uL INR 1.2 H (<1.2) ABG pCO2 (35-45) mmHg ABG pO2 (83-108) mmHg ABG O2 Saturation (94-97) % Chloride 113 H (98-107) mmol/L Carbon Dioxide 19 L (22-30) mmol/L Glucose 109 H (74-99) mg/dL POC Glucose (mg/dL) 110 H (75-99) mg/dL Calcium 7.6 L (8.4-10.2) mg/dL Creatine Kinase (30-135) U/L Total Creatine Kinase (30-135) U/L CK-MB (CK-2) (0.0-2.4) ng/mL Total Protein 5.2 L (6.3-8.2) g/dL Albumin 2.8 L (3.5-5.0) g/dL 10/04/16 Range/Units 07:41 WBC (3.8-10.6) k/uL RBC (3.80-5.40) m/uL Plt Count (150-450) k/uL Neutrophils # (1.3-7.7) k/uL Lymphocytes # (1.0-4.8) k/uL INR (<1.2) ABG pCO2 30 L (35-45) mmHg ABG pO2 162 H (83-108) mmHg ABG O2 Saturation 100.0 H (94-97) % Chloride (98-107) mmol/L Carbon Dioxide (22-30) mmol/L Glucose (74-99) mg/dL POC Glucose (mg/dL) (75-99) mg/dL Calcium (8.4-10.2) mg/dL Creatine Kinase (30-135) U/L Total Creatine Kinase (30-135) U/L CK-MB (CK-2) (0.0-2.4) ng/mL Total Protein (6.3-8.2) g/dL Albumin (3.5-5.0) g/dL Microbiology - Last 24 Hours (Table) 10/02/16 19:21 Blood Culture Gram Stain - Preliminary Blood Blood Culture - Preliminary Presumptive Staph aureus 10/02/16 19:21 Blood Culture - Final Blood Assessment and Plan Plan: Assessment Acute hypoxic respiratory failure Aspiration pneumonia right lower lobe Severe Sepsis, with septic shock Drug overdose, unclear if it was intentional or unintentional Hypotension Encephalopathy likely medication related with comatose state Drug overdose and substance use Plan Medications have been reviewed and will be continued as ordered. We will stay in close contact with poison control and appreciate recommendations from them. She will remain on mechanical ventilation today. Continue with sedation holidays daily. May start Levo to maintain MAP of 65 for hypotension. Continue with IV antibiotics. Continue with pulmonary hygiene, coughing and deep breathing exercises, and supportive care. Supplemental oxygen to maintain oxygen saturations of 92% or better. Continue nebulizer treatments. Sputum and blood cultures pending. Monitor and replace electrolytes per protocol. Repeat chest x-ray and labs in the morning. Adjustment of fluid maintenance and continuation tube feed, GI and DVT prophylaxis. We will continue to monitor labs /results and adjust treatment as necessary. Further recommendations pending. Care plan discussed with the family at length. Neuro consultation him a patient is not ready for weaning extubation Care time spent over 40 minutes Time with Patient: Greater than 30
--- NOTE | 2016-10-04 11:51 | P.PCN ---
Date of Procedure: 10/04/16 Preoperative Diagnosis: Severe sepsis and septic shock, right lower lobe aspiration/mixed bacterial gram -negative pneumonia. The altered mental status related to drug overdose, history of stroke in the past, depression Postoperative Diagnosis: Procedure(s) Performed: Right internal jugular triple-lumen/Central line placement by posterior approach Implants: Anesthesia: local Surgeon: Sadiq Roberson Estimated Blood Loss (ml): 5 Pathology: none sent Condition: critical Disposition: ICU Indications for Procedure: As above Operative Findings: Description of Procedure: Informed consent obtained from the family seizure explained to the family at length area around the anterior lateral aspect of the neck is thoroughly cleaned one percent lidocaine was utilized to infiltrate the area using a modified Seldinger technique triple-lumen catheter inserted into the right internal jugular vein via posterior approach patient tolerated procedure well no complication noted
[2016-10-04] MEDS ORDERED: NOREPINEPHRIN 16 MG-0.9%NS PMX 16 MG/250 ML ML IV SCH (12:00)
[2016-10-04 14:35] LABS: Glucose,Whole Blood 116 mg/dL (75-99)
--- NOTE | 2016-10-04 14:39 | CT ---
EXAMINATION TYPE: CT brain wo con DATE OF EXAM: 10/04/2016 COMPARISON: 06/18/2013 HISTORY: Patient unable to give history (vented). Patient is overdose. Mental status changes. CT DLP: 674.9 mGycm. Automated Exposure Control for Dose Reduction was Utilized. TECHNIQUE: CT scan of the head is performed without contrast. FINDINGS: Ventricles of normal size. There is no mass effect nor midline shift. There is no sign of i ntracranial hemorrhage. The calvarium is intact. There is no sign of cerebral edema. IMPRESSION: Negative CT scan of the brain. No change.
--- NOTE | 2016-10-04 14:51 | P.CNNES ---
History of Present Illness Consult date: 10/04/16 Reason for Consult: Patient with altered mental status and drug overdose in the ICU. History of Present Illness: This patient is a 46-year-old female who was brought into the emergency room on 10/02/2016 via EMS for drug overdose. Apparently the patient was at home with her roommate and was found unresponsive at home with multiple bottles of pills scattered across the floor. EMS was called to the scene and she was initially given Narcan with minimal improvement. The exact medications were unknown at the time. Patient was brought into the emergency room at [facility] for further evaluation. She was seen in the ER by Dr. Oquendo. Her urine drug screen was positive for opiates, tricyclic antidepressants, cocaine, and marijuana. Poison control was contacted by the ER. Patient was intubated for protection of her airway. There was concern she may have also had aspiration pneumonia. She was then transferred to the intensive care unit for further management. Neurology was consulted today for further evaluation of her mental status. We've recommended she have a stat computed tomography scan of the brain performed this morning. This was completed in came back negative. Patient remains intubated on the ventilator. She is currently sedated and is on a Diprivan drip. It is unclear if the overdose was intentional or unintentional. She is being treated for acute hypoxic respiratory failure at this time. Pulmonary medicine has seen the patient and is monitoring her condition closely. Poison control is also monitoring her overall ICU condition closely as well. Neurology is now been consulted for further evaluation and recommendations. Review of Systems ROS unobtainable: due to endotracheal tube Constitutional: Denies chills, Denies fever Eyes: denies blurred vision, denies pain Ears, nose, mouth and throat: Denies headache, Denies sore throat Cardiovascular: Denies chest pain, Denies shortness of breath Respiratory: Denies cough Gastrointestinal: Denies abdominal pain, Denies diarrhea, Denies nausea, Denies vomiting Genitourinary: Denies dysuria, Denies hematuria Musculoskeletal: Denies myalgias Integumentary: Denies pruritus, Denies rash Neurological: Reports change in mentation, Denies numbness, Denies weakness Psychiatric: Denies anxiety, Denies depression Endocrine: Denies fatigue, Denies weight change Past Medical History Past Medical History: Unable to Obtain, Thyroid Disorder 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" History of Any Multi-Drug Resistant Organisms: None Reported, Unobtainable Past Surgical History: Unable to Obtain, Appendectomy, Tubal Ligation Additional Past Surgical History / Comment(s): neck fusion Past Anesthesia/Blood Transfusion Reactions: No Reported Reaction, Unable to Obtain Past Psychological History: No Psychological Hx Reported, Unable to Obtain Smoking Status: Unknown if ever smoked Past Alcohol Use History: None Reported, Unable to Obtain Past Drug Use History: None Reported, Unable to Obtain Additional Drug Use History / Comment(s): tox screen positive - Past Family History Father History Unknown: Yes Family Medical History: Unable to Obtain Mother History Unknown: Yes Family Medical History: Unable to Obtain Medications and Allergies Home Medications Medication Instructions Recorded Confirmed Type Baclofen [Lioresal] 20 mg PO TID 10/02/16 10/02/16 History Choline Citrate 650mg 650 mg PO BID 10/02/16 10/02/16 History Cyanocobalamin (Vitamin B-12) 1,000 mcg PO DAILY 10/02/16 10/02/16 History [Vitamin B-12] Folic Acid 0.4 mg PO DAILY 10/02/16 10/02/16 History Gabapentin 600 mg PO Q4H 10/02/16 10/02/16 History HYDROcodone/IBUPROFEN [Xylon 0.5 tab PO BID 10/02/16 10/02/16 History 10-200 mg Tablet] Levothyroxine Sodium [Synthroid] 137 mcg PO DAILY 10/02/16 10/02/16 History Loratadine 10 mg PO DAILY 10/02/16 10/02/16 History Morphine Sulfate [Ms Contin] 15 mg PO HS 10/02/16 10/02/16 History Morphine Sulfate [Ms Contin] 30 mg PO QAM 10/02/16 10/02/16 History Naproxen 500 mg PO Q12H 10/02/16 10/02/16 History Nortriptyline [Pamelor] 100 mg PO HS 10/02/16 10/02/16 History Omeprazole 40 mg PO DAILY 10/02/16 10/02/16 History Oxybutynin Chloride [Ditropan] 5 mg PO TID 10/02/16 10/02/16 History Pyridoxine [Vitamin B-6] 50 mg PO DAILY 10/02/16 10/02/16 History Allergies Allergy/AdvReac Type Severity Reaction Status Date / Time acetaminophen Allergy Unknown Verified 10/02/16 17:54 aspirin Allergy Rash/Hives Verified 10/02/16 17:54 DAIRY Allergy Vomiting Uncoded 10/02/16 17:54 Physical Examination - Vital Signs Vital Signs: Vital Signs Temp Pulse Resp BP Pulse Ox 10/04/16 12:30 102 H 32 H 98/57 100 10/04/16 12:00 98 29 H 100/59 100 10/04/16 11:30 86 14 110/67 100 10/04/16 11:08 85 10/04/16 11:00 88 23 148/70 100 10/04/16 10:30 50 L 20 161/85 100 10/04/16 10:00 84 22 109/56 100 10/04/16 09:30 92 21 98/64 100 10/04/16 09:00 81 22 131/74 100 10/04/16 08:30 87 22 110/75 100 10/04/16 08:00 98.2 F 88 23 103/63 100 10/04/16 07:35 88 10/04/16 07:30 84 23 79/50 100 10/04/16 07:15 87 10/04/16 07:00 65 20 116/68 100 10/04/16 06:30 64 21 120/72 100 10/04/16 06:00 74 17 114/69 100 10/04/16 05:30 88 20 106/66 100 10/04/16 05:00 71 21 112/65 100 10/04/16 04:30 71 19 132/79 100 10/04/16 04:00 98.7 F 89 17 109/74 100 10/04/16 03:30 85 21 109/74 100 10/04/16 03:00 96 22 95/53 100 10/04/16 02:42 82 10/04/16 02:32 81 10/04/16 02:30 77 19 104/65 100 10/04/16 02:00 82 20 99/54 100 10/04/16 01:30 77 20 119/73 100 10/04/16 01:00 90 21 121/72 99 10/04/16 00:30 80 19 112/68 100 10/04/16 00:01 83 19 101/64 99 10/04/16 00:00 98.9 F 82 18 101/64 99 10/03/16 23:30 97 22 101/65 99 10/03/16 23:12 84 10/03/16 23:02 88 10/03/16 23:00 95 22 106/67 99 10/03/16 22:30 84 21 92/56 100 10/03/16 22:00 88 16 92/56 100 10/03/16 21:33 84 10/03/16 21:30 86 14 94/59 100 10/03/16 21:16 85 10/03/16 21:00 86 18 95/60 100 10/03/16 20:30 102 H 24 117/78 100 10/03/16 20:00 99.7 F H 86 18 109/81 100 10/03/16 19:30 82 14 93/55 100 10/03/16 19:00 81 14 100/55 100 10/03/16 18:30 62 14 136/78 100 10/03/16 18:00 102 H 17 106/68 100 10/03/16 17:30 88 14 84/55 100 10/03/16 17:00 90 14 87/50 100 10/03/16 16:30 100 22 100/68 100 10/03/16 16:14 100 10/03/16 16:00 86 16 97/65 100 10/03/16 15:30 91 15 97/68 100 10/03/16 15:00 89 14 95/64 100 Intake and Output 10/03/16 10/04/16 10/04/16 22:59 06:59 14:59 Intake Total 2393.987 2283.068 1574.775 Output Total 1400 1550 1325 Balance 993.987 733.068 249.775 Intake: IV 2037.5 1650.0 1262.5 Levofloxacin 750Mg-D5w 150 Pmx 750 mg In Dextrose/ Water 1 150ml.bag @ 100 mls/hr IVPB Q24H [facility] Rx#: [id number] Piperacillin-Tazobactam 3 37.5 50.0 12.5 .375 gm In Dextrose/Water 1 50ml.bag @ 12.5 mls/hr IVPB Q8H [facility]ITH[facility] Rx#: [id number] Sodium Chloride 0.45% 1, 1600 1600 1000 000 ml @ 200 mls/hr IV . Q5H [facility] Rx#:[id number] Vancomycin 1,500 mg In 250 250 Sodium Chloride 0.9% 250 ml @ 125 mls/hr IVPB Q12H [facility] Rx#:[id number] Intake, IV Titration 286.487 353.068 192.275 Amount Norepinephrin 4 mg-0.9% 85 159.75 4.687 Ns Pmx 4 mg In 250 ml @ Titrate IV .Q0M [facility] Rx#: [id number] Propofol 1,000 mg In 100 76.487 193.318 187.588 ml @ Titrate IV .Q0M [facility] Rx#:[id number] Vancomycin 1,500 mg In 125 Sodium Chloride 0.9% 250 ml @ 125 mls/hr IVPB Q12H [facility]ITHA Rx#:[id number] Tube Feeding 40 220 90 Other 30 60 30 Output: Urine 1400 1550 1325 Other: Voiding Method Indwelling Catheter Indwelling Catheter # Bowel Movements 0 0 Weight 83.2 kg 83.2 kg Patient Weight 10/05/16 06:59 Weight 83.2 kg - Constitutional General appearance: average body habitus - EENT EENT: PERRL, mucous membranes moist - Respiratory Respiratory: lungs clear, normal breath sounds - Cardiovascular Cardiovascular: regular rate, normal S1, normal S2 Extremities: no peripheral edema bilaterally - Gastrointestinal Gastrointestinal: normoactive bowel sounds - Integumentary Integumentary: normal - Neurologic Cranial nerve examination: PERRL, face symmetric, tongue midline, intact gag reflex, intact corneal reflex, normal palatal elevation Speech examination: intact Sensorimotor examination: intact Motor examination - right side: 2/5: biceps, triceps, wrist flexion, wrist extension, heating 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 superintendent, hip flexors, knee extensors, dorsiflexion, toe extension (EHL) , plantarflexion Motor examination - left side: 2/5: biceps, triceps, wrist flexion, wrist extension, heating plant superintendent, hip flexors, knee extensors, dorsiflexion, toe extension (EHL) , plantarflexion Detailed sensory examination: intact Reflex and gait examination: intact Reflexes: 1+: ankle, bicep, knee, tricep - Musculoskeletal Musculoskeletal: no pain Results - Laboratory Findings CBC and BMP: 10/04/16 05:25 10/04/16 11:00 Abnormal Lab Findings: Abnormal Labs 07/10/02/16 10/02/16 17:50 17:50 17:50 WBC 15.0 H RBC Plt Count Neutrophils # 12.8 H Lymphocytes # INR ABG pH ABG pCO2 ABG pO2 ABG O2 Saturation Sodium 147 H Chloride 114 H Carbon Dioxide 20 L Glucose 152 H POC Glucose (mg/dL) Calcium Magnesium Creatine Kinase Total Creatine Kinase 388 H CK-MB (CK-2) 4.6 H* Total Protein Albumin Urine Appearance Urine Protein Urine Ketones Ur Leukocyte Esterase Urine WBC Urine Mucus Urine Opiates Screen U Tricyclic Antidepress Urine Cocaine Screen U Marijuana (THC) Screen 10/02/16 10/02/16 10/02/16 17:52 18:13 18:50 WBC RBC Plt Count Neutrophils # Lymphocytes # INR ABG pH ABG pCO2 ABG pO2 279 H ABG O2 Saturation 100.0 H Sodium Chloride Carbon Dioxide Glucose POC Glucose (mg/dL) 159 H Calcium Magnesium Creatine Kinase Total Creatine Kinase CK-MB (CK-2) Total Protein Albumin Urine Appearance Cloudy H Urine Protein 1+ H Urine Ketones 1+ H Ur Leukocyte Esterase Moderate H Urine WBC 6 H Urine Mucus Rare H Urine Opiates Screen Detected H U Tricyclic Antidepress Detected H Urine Cocaine Screen Detected H U Marijuana (THC) Screen Detected H 10/02/16 10/03/16 10/03/16 20:40 00:52 01:03 WBC 14.1 H RBC Plt Count Neutrophils # 11.5 H Lymphocytes # INR ABG pH ABG pCO2 ABG pO2 ABG O2 Saturation Sodium Chloride Carbon Dioxide Glucose POC Glucose (mg/dL) 134 H 134 H Calcium Magnesium Creatine Kinase Total Creatine Kinase CK-MB (CK-2) Total Protein Albumin Urine Appearance Urine Protein Urine Ketones Ur Leukocyte Esterase Urine WBC Urine Mucus Urine Opiates Screen U Tricyclic Antidepress Urine Cocaine Screen U Marijuana (THC) Screen 10/03/16 10/03/16 10/03/16 02:22 05:13 05:13 WBC 16.1 H RBC Plt Count Neutrophils # 13.1 H Lymphocytes # INR ABG pH ABG pCO2 ABG pO2 ABG O2 Saturation Sodium 147 H Chloride 113 H Carbon Dioxide Glucose POC Glucose (mg/dL) Calcium Magnesium 2.6 H Creatine Kinase 541 H Total Creatine Kinase CK-MB (CK-2) Total Protein 6.0 L Albumin 3.4 L Urine Appearance Urine Protein Urine Ketones Ur Leukocyte Esterase Urine WBC Urine Mucus Urine Opiates Screen U Tricyclic Antidepress Urine Cocaine Screen U Marijuana (THC) Screen 10/03/16 10/03/16 10/03/16 05:22 10:25 11:09 WBC 12.8 H RBC Plt Count 110 L Neutrophils # 11.3 H Lymphocytes # 0.6 L INR ABG pH 7.46 H ABG pCO2 32 L ABG pO2 ABG O2 Saturation Sodium Chloride Carbon Dioxide Glucose POC Glucose (mg/dL) Calcium Magnesium Creatine Kinase 384 H Total Creatine Kinase CK-MB (CK-2) Total Protein Albumin Urine Appearance Urine Protein Urine Ketones Ur Leukocyte Esterase Urine WBC Urine Mucus Urine Opiates Screen U Tricyclic Antidepress Urine Cocaine Screen U Marijuana (THC) Screen 10/03/16 10/03/16 10/03/16 11:09 11:59 16:05 WBC 20.7 H RBC Plt Count Neutrophils # 18.6 H Lymphocytes # INR ABG pH ABG pCO2 ABG pO2 ABG O2 Saturation Sodium Chloride Carbon Dioxide Glucose POC Glucose (mg/dL) 104 H Calcium Magnesium Creatine Kinase Total Creatine Kinase 373 H CK-MB (CK-2) 3.2 H* Total Protein Albumin Urine Appearance Urine Protein Urine Ketones Ur Leukocyte Esterase Urine WBC Urine Mucus Urine Opiates Screen U Tricyclic Antidepress Urine Cocaine Screen U Marijuana (THC) Screen 10/03/16 10/03/16 10/04/16 16:05 19:02 00:22 WBC RBC Plt Count Neutrophils # Lymphocytes # INR ABG pH ABG pCO2 ABG pO2 ABG O2 Saturation Sodium Chloride Carbon Dioxide Glucose POC Glucose (mg/dL) 147 H 115 H Calcium Magnesium Creatine Kinase 345 H Total Creatine Kinase CK-MB (CK-2) Total Protein Albumin Urine Appearance Urine Protein Urine Ketones Ur Leukocyte Esterase Urine WBC Urine Mucus Urine Opiates Screen U Tricyclic Antidepress Urine Cocaine Screen U Marijuana (THC) Screen 10/04/16 10/04/16 10/04/16 05:25 05:25 05:25 WBC 16.0 H RBC 3.79 L Plt Count Neutrophils # 13.8 H Lymphocytes # INR 1.2 H ABG pH ABG pCO2 ABG pO2 ABG O2 Saturation Sodium Chloride 113 H Carbon Dioxide 19 L Glucose 109 H POC Glucose (mg/dL) Calcium 7.6 L Magnesium Creatine Kinase Total Creatine Kinase CK-MB (CK-2) Total Protein 5.2 L Albumin 2.8 L Urine Appearance Urine Protein Urine Ketones Ur Leukocyte Esterase Urine WBC Urine Mucus Urine Opiates Screen U Tricyclic Antidepress Urine Cocaine Screen U Marijuana (THC) Screen 10/04/16 10/04/16 10/04/16 07:16 07:41 14:34 WBC RBC Plt Count Neutrophils # Lymphocytes # INR ABG pH ABG pCO2 30 L ABG pO2 162 H ABG O2 Saturation 100.0 H Sodium Chloride Carbon Dioxide Glucose POC Glucose (mg/dL) 110 H 116 H Calcium Magnesium Creatine Kinase Total Creatine Kinase CK-MB (CK-2) Total Protein Albumin Urine Appearance Urine Protein Urine Ketones Ur Leukocyte Esterase Urine WBC Urine Mucus Urine Opiates Screen U Tricyclic Antidepress Urine Cocaine Screen U Marijuana (THC) Screen Assessment and Plan (1) Acute metabolic encephalopathy Status: Acute Code(s): G93.41 - METABOLIC ENCEPHALOPATHY (2) Acute and chronic respiratory failure with hypoxia Status: Acute Code(s): J96.21 - ACUTE AND CHRONIC RESPIRATORY FAILURE WITH HYPOXIA (3) Aspiration pneumonia Status: Acute Code(s): J69.0 - PNEUMONITIS DUE TO INHALATION OF FOOD AND VOMIT (4) Drug overdose Status: Acute Code(s): T50.901A - POISONING BY UNSP DRUG/MEDS/BIOL SUBST, ACCIDENTAL, INIT Plan: This patient is a 46-year-old female who was admitted to the hospital after being found unresponsive at home. Patient was noted by her roommate to be unresponsive at home with several empty bottles of medications found throughout her bedroom. EMS was called to the scene and she remained obtunded. Narcan was given with no effect. She was transported to the emergency room at [facility]. She was seen by Dr. Oquendo. Poison control was contacted. Patient was intubated and transferred to the intensive care unit. Patient remains intubated at this time on a Diprivan drip. She is not following any commands. She is sedated. She was sent for computed tomography scan of the brain which was reported negative for any acute changes. This patient has evidence of a severe metabolic encephalopathy. We will obtain routine EEG for further evaluation. Would continue weaning parameters as a patient tolerates. Her overall prognosis at this time remains very guarded. Time with Patient: Greater than 30
[2016-10-04] MEDS: LEVOFLOXACIN 750MG-D5W PMX 750 MG in DEXTROSE/WATER 1 150ML.BAG IVPB SCH (21:24)
[2016-10-05] MEDS: HEPARIN SODIUM,PORCINE 5,000 UNIT/ML 1 ML VIAL SQ SCH ×3 (00:30→16:20)
[2016-10-05] MEDS: PROPOFOL 1,000 MG/100 ML VIAL IV SCH ×5 (01:23→22:32)
[2016-10-05] MEDS: PIPERACILLIN-TAZOBACTAM 3.375 GM in DEXTROSE/WATER 1 50ML.BAG IVPB SCH ×3 (03:25→22:58)
[2016-10-05 05:55] LABS: Glucose,Whole Blood 107 mg/dL (75-99)
[2016-10-05 06:13] LABS: Basophils % (A) 0 %; CH 30.2; CHCM 33.2; Eosinophils # (A) 0.2 k/uL (0-0.7); Eosinophils % (A) 2 %; HCT 28.4 % (34.0-46.0); HDW 3.17; HGB 9.6 gm/dL (11.4-16.0); Luc % (Auto) 1; Lymphocytes # (A) 0.9 k/uL (1.0-4.8); Lymphocytes % (A) 8 %; MCH 30.7 pg (25.0-35.0); MCHC 33.7 g/dL (31.0-37.0); MCV 91.2 fL (80.0-100.0); Mean Platelet Volume 7.4; Monocytes # (A) 0.4 k/uL (0-1.0); Monocytes % (A) 4 %; Neutrophils # (A) 8.7 k/uL (1.3-7.7); Neutrophils % (A) 84 %; RBC 3.11 m/uL (3.80-5.40); RDW 14.3 % (11.5-15.5); WBC 10.3 k/uL (3.8-10.6); WBC (Perox) 10.49
[2016-10-05 06:21] LABS: ALT 27 U/L (9-52); AST 13 U/L (14-36); Alkaline Phosphatase 48 U/L (38-126); Anion Gap 5 mmol/L; Blood Urea Nitrogen 11 mg/dL (7-17); Calcium 7.8 mg/dL (8.4-10.2); Carbon Dioxide 24 mmol/L (22-30); Chloride 113 mmol/L (98-107); Glucose 92 mg/dL (74-99); Magnesium 1.9 mg/dL (1.6-2.3); Non-African American GFR(MDRD) >60 (>60 ml/min/1.73 sqM); Phosphorous 2.1 mg/dL (2.5-4.5); Potassium 3.9 mmol/L (3.5-5.1); Sodium 142 mmol/L (137-145); Total Bilirubin 0.4 mg/dL (0.2-1.3); Total Protein 4.7 g/dL (6.3-8.2)
[2016-10-05] MEDS ORDERED: Phosphorus Replacement Protoco 1 EACH MISC MISCELLANE PRN (06:58)
[2016-10-05] MEDS ORDERED: POTASSIUM CHLORIDE ORAL LIQUID 40 MEQ/30 ML CUP NG-TUBE SCH (07:00)
[2016-10-05] MEDS: IPRATROPIUM-ALBUTEROL 3 ML NEB INHALATION PRN ×4 (07:32→19:27)
[2016-10-05] MEDS: MAGNESIUM SULFATE-D5W PMX 1 GM in DEXTROSE/WATER 1 100ML.BAG IVPB SCH ×2 (07:44→08:54)
[2016-10-05] MEDS: VANCOMYCIN 1,500 MG in SODIUM CHLORIDE 0.9% 250 ML IVPB SCH ×2 (07:47→19:15)
[2016-10-05] MEDS: FAMOTIDINE 20 MG/2 ML VIAL IV SCH ×2 (07:48→22:34)
[2016-10-05] MEDS ORDERED: SODIUM PHOSPHATE 10 MMOL in SODIUM CHLORIDE 0.9% 100 ML IVPB ONE (08:00)
--- NOTE | 2016-10-05 08:21 | XR ---
EXAMINATION TYPE: XR chest 1V DATE OF EXAM: 10/05/2016 COMPARISON: 10/04/2016 HISTORY: SOB, Follow Up FINDINGS: Indwelling tubes and catheters are unchanged. No change in right basilar infiltrate. Stable appearance of the cardio-mediastinal structures at this time. Pleural effusion unchanged. IMPRESSION: 1. Stable portable chest. Clinical correlation and follow up until resolution is recommended.
[2016-10-05 08:39] LABS: ABG Base Excess -2.6 mmol/L; ABG HCO3 21 mmol/L (21-25); ABG PCO2 28 mmHg (35-45); ABG PH 7.48 (7.35-7.45); ABG PO2 78 mmHg (83-108); ABG TCO2 21 mmol/L (19-24)
[2016-10-05] MEDS: CHLORHEXIDINE GLUCONATE 15 ML CUP MUCOUS MEM SCH (08:46)
[2016-10-05] MEDS: SODIUM CHLORIDE 0.45% 1,000 ML IV SCH (08:47)
[2016-10-05] MEDS: LORazepam 2 MG/ML SYRINGE IV PRN ×2 (09:08→20:10)
--- NOTE | 2016-10-05 09:57 | PN ---
SUBJECTIVE: 46 year old white female, polysubstance abuse, overdose, aspiration pneumonia, altered mental status, remains on broad spectrum antibiotics. She is unable to be weaned from the vent at this time. Still remains comfortable on the vent. Vital signs are stable. Meds are reviewed. IV drugs are reviewed. ABGs were reviewed. Vent settings were removed. ( ) was reviewed. Vitals are reviewed. Cardiovascular: S1, S2. Lungs decreased breath sounds. GI: Appears no mass. Undistended. Extremities show generalized obesity, 2 to 3+ edema. ASSESSMENT: 1. Polysubstance abuse. 2. Hypoxemic respiratory failure. 3. Metabolic acidosis. 4. Aspiration pneumonia. PLAN: Wean ventilator when appropriate. Treat metabolic acidosis. Treat aspiration pneumonia with IV antibiotics. ICU time: 30 minutes. MTDD
[2016-10-05] MEDS ORDERED: CALCIUM GLUCONATE 2,000 MG in SODIUM CHLORIDE 0.9% 100 ML IVPB ONE (11:00)
--- NOTE | 2016-10-05 11:02 | P.PN ---
Subjective Principal diagnosis: This is a 46-year-old female patient being seen, examined and evaluated today in the intensive care unit. This patient presented to the emergency room on via EMS for overdose. Apparently the patient was at home and her roommate found her unresponsive around multiple bottles of pills, therefore the roommate forced her to vomit before EMS arrival. When EMS arrived they did no there was pill fragments in her vomit. EMS did give the patient Narcan with minimal improvement of her symptoms. It is unclear what medications the patient did consume however there is speculation that it was morphine, gabapentin as well as baclofen. The patient's urine drug screen was positive for opiates, tricyclic antidepressants, cocaine and marijuana. Poison control has been contacted and they have been assisting in the case as well. Upon examination the patient is in sync with mechanical ventilation, propofol on for sedation. Ventilator settings are assist control with a rate of 14, tidal volume 400, FiO2 of 50%, and a PEEP of 5. She has had blood pressures systolically 90s and average, she has not required vasopressors at this time. Patient's chest x-ray from this morning has been reviewed and does reveal that there is a new air space consolidation in the right lower lobe which may reflect atelectasis infiltrate and/or effusion. The patient also underwent a sedation holiday this morning her propofol was off for approximately 60 minutes. The patient was able to move all 4 extremities she did have a cough and a gag reflex, she was thrashing in the bed however she never opened her eyes , never followed commands and her respiratory rate was in the 40s, therefore she was put back on assist control mode. Currently there is no family listed in the chart, she has no power of senior trial attorney or next of kin that we are aware of, we will look to get anymore information from the roommate that found her. Of note, according the the timeline of when the patient ingested the pills and vomited untill the roommate called EMS was a 12 hour span that the patient was "passed out". It is unclear if the patient woke up and took more pills in between vomiting the pills up the first time, untill she found unresponsive 12 hours later. 03/06/17, patient seen and evaluated and examined remains intermittently hypotensive in spite of aggressive fluid resuscitation attempts were A-line has been unsuccessful patient will need a central line main somewhat comatose in spite of weaning the propofol drip and neurology consultation is being obtained. Care plan discussed with the poison control as well but does condition is related to baclofen patient mental status however remains marginal she becomes anxious and agitated when propofol is being tapered down her chest x -ray from today is reviewed she has a dense infiltrate in the right lower lobe she is tolerating every feed very well been on DVT and peptic ulcer disease prophylaxis as well , I have discussed at length with the with the family present at bedside including daughter and sister, about the care plan and prognosis proceed with a central line placement for lites and try to keep magnesium over 2-3 and potassium over 4 calcium as well must see orders for detail. Patient remains on full ventilatory support current vent settings are assist control rate of 14 tidal volume of 400. 5 of PEEP and FiO2 down to 50% 10/05/16, patient seen and evaluated examined in the Rounds care plan discussed with the family at length, critical care time spent 35 minutes patient remains intubated on full respirator support currently she is on assist control rate of 14 breathing about 2750% oxygen 400 tidal volume and 5 of PEEP and on tube feed tolerating very well, attempts were done to see been off the propofol which was low down to 30 mics however patient did not open her eyes because very anxious and agitated respiratory rate went all the way up into mid 30s and 40s becomes extremely tachycardic with heart rate in 100s, at that time patient sedation was resumed and was given additional doses of Ativan reviewed the neurology recommendation and computed tomography scan of the head Objective - Vital Signs Vital signs: Vital Signs Temp 98.0 F 10/05/16 08:30 Pulse 84 10/05/16 10:00 Resp 26 H 10/05/16 10:00 BP 112/62 10/05/16 10:00 Pulse Ox 97 10/05/16 10:00 Intake & Output 10/04/16 10/05/16 10/05/16 18:59 06:59 18:59 Intake Total 3104.775 2547.5 904.382 Output Total 2375 1460 650 Balance 648.934 6058.5 254.382 Weight 83.2 kg 80.3 kg Intake: IV 1862.5 1687.5 462.5 Levofloxacin 750Mg-D5w 150 Pmx 750 mg In Dextrose/ Water 1 150ml.bag @ 100 mls/hr IVPB Q24H [facility] Rx#: [id number] Piperacillin-Tazobactam 3 12.5 87.5 12.5 .375 gm In Dextrose/Water 1 50ml.bag @ 12.5 mls/hr IVPB Q8H [facility] Rx#: [id number] Sodium Chloride 0.45% 1, 1600 1200 200 000 ml @ 200 mls/hr IV . Q5H [facility] Rx#:[id number] Vancomycin 1,500 mg In 250 250 250 Sodium Chloride 0.9% 250 ml @ 125 mls/hr IVPB Q12H [facility] Rx#:[id number] Intake, IV Titration 592.275 200 297.882 Amount Calcium Gluconate 2,000 100 mg In Sodium Chloride 0.9 % 100 ml @ 100 mls/hr IVPB ONCE ONE Rx#: [id number] Magnesium Sulfate-D5w Pmx 200 1 gm In Dextrose/Water 1 100ml.bag @ 100 mls/hr IVPB Q1H [facility] Rx#: [id number] Magnesium Sulfate-D5w Pmx 100 1 gm In Dextrose/Water 1 100ml.bag @ 100 mls/hr IVPB Q1H [facility] Rx#: [id number] Norepinephrin 4 mg-0.9% 4.687 Ns Pmx 4 mg In 250 ml @ Titrate IV .Q0M [facility] Rx#: [id number] Propofol 1,000 mg In 100 287.588 200 97.882 ml @ Titrate IV .Q0M [facility] Rx#:[id number] Sodium Phosphate 10 mmol 100 In Sodium Chloride 0.9% 100 ml @ 50 mls/hr IVPB ONCE ONE Rx#:[id number] Tube Feeding 560 570 114 Other 90 90 30 Output: Urine 2375 1460 650 Other: Voiding Method Indwelling Catheter Indwelling Catheter # Bowel Movements 0 0 - Exam GENERAL EXAM: On mechanical ventilation with propofol for sedation, he will fed those being adjusted due to hyponatremia patient remains on half normal saline HEAD: Normocephalic. EYES: Or reaction of pupils, equal size. NOSE: Clear with pink turbinates. THROAT: No erythema or exudates. hypoactive cough and gag reflex NECK: No masses, no JVD, triple-lumen site is intact on the right neck. CHEST: No chest wall deformity. LUNGS: Equal air entry noted to be coarse with no crackles, wheeze, rhonchi or dullness. Bases diminished coarse breath sounds are present especially on the right base CVS: S1 and S2 normal with no audible mumurs, regular rhythm. ABDOMEN: No hepatosplenomegaly, normal bowel sounds, no guarding or rigidity. EXTREMITIES: trace edema noted, pedal pulses palpable. SKIN: No rashes CENTRAL NERVOUS SYSTEM: On mechanical ventilation with propofol for sedation, withdraws to pain - Labs CBC & Chem 7: 10/05/16 06:00 10/05/16 06:00 Labs: Abnormal Lab Results - Last 24 Hours (Table) 10/04/16 10/05/16 10/05/16 Range/Units 14:34 05:54 06:00 RBC 3.11 L (3.80-5.40) m/uL Hgb 9.6 L D (11.4-16.0) gm/dL Hct 28.4 L (34.0-46.0) % Neutrophils # 8.7 H (1.3-7.7) k/uL Lymphocytes # 0.9 L (1.0-4.8) k/uL ABG pH (7.35-7.45) ABG pCO2 (35-45) mmHg ABG pO2 (83-108) mmHg Chloride (98-107) mmol/L POC Glucose (mg/dL) 116 H 107 H (75-99) mg/dL Calcium (8.4-10.2) mg/dL Phosphorus (2.5-4.5) mg/dL AST (14-36) U/L Total Protein (6.3-8.2) g/dL Albumin (3.5-5.0) g/dL 10/05/16 10/05/16 Range/Units 06:00 08:32 RBC (3.80-5.40) m/uL Hgb (11.4-16.0) gm/dL Hct (34.0-46.0) % Neutrophils # (1.3-7.7) k/uL Lymphocytes # (1.0-4.8) k/uL ABG pH 7.48 H (7.35-7.45) ABG pCO2 28 L (35-45) mmHg ABG pO2 78 L (83-108) mmHg Chloride 113 H (98-107) mmol/L POC Glucose (mg/dL) (75-99) mg/dL Calcium 7.8 L (8.4-10.2) mg/dL Phosphorus 2.1 L (2.5-4.5) mg/dL AST 13 L (14-36) U/L Total Protein 4.7 L (6.3-8.2) g/dL Albumin 2.3 L (3.5-5.0) g/dL Microbiology - Last 24 Hours (Table) 10/02/16 20:50 Gram Stain - Final Sputum Sputum Culture - Final 10/02/16 19:21 Blood Culture Gram Stain - Final Blood Blood Culture - Final Methicillin resist S. aureus Assessment and Plan Plan: Assessment Acute hypoxic respiratory failure Aspiration pneumonia right lower lobe, likely related to MRSA which is isolated in the blood, sputum is also growing gram-positive cocci overall appears to be MRSA pneumonia and bacteremia Severe Sepsis, with septic shock, now off of U for drip Drug overdose, unclear if it was intentional or unintentional Hypotension Encephalopathy likely medication related with comatose state Drug overdose and substance use Plan Medications have been reviewed and will be continued as ordered. We will stay in close contact with poison control and appreciate recommendations from them. She will remain on mechanical ventilation today. Continue with sedation holidays daily. May start Levo to maintain MAP of 65 for hypotension. Continue with IV antibiotics. Continue with pulmonary hygiene, coughing and deep breathing exercises, and supportive care. Supplemental oxygen to maintain oxygen saturations of 92% or better. Continue nebulizer treatments. Sputum and blood cultures pending. Monitor and replace electrolytes per protocol. Repeat chest x-ray and labs in the morning. Adjustment of fluid maintenance and continuation tube feed, GI and DVT prophylaxis. We will continue to monitor labs /results and adjust treatment as necessary. Further recommendations pending. Care plan discussed with the family at length. Neuro consultation reviewed, patient is not ready for weaning extubation Care time spent over 35 minutes Time with Patient: Greater than 30
[2016-10-05 12:36] LABS: Glucose,Whole Blood 108 mg/dL (75-99)
[2016-10-05 12:49] LABS: Prothrombin Time 10.2 sec (9.0-12.0)
--- NOTE | 2016-10-05 17:07 | P.PN ---
Subjective This patient is a 46-year-old female who is evaluated today in the intensive care unit. She was seen in neurology consultation yesterday for drug overdose and obtundation and remains intubated on the ventilator. Pulmonary medicine is following the patient closely. She remains sedated on low dose Diprivan at this time. The patient was admitted with possible drug overdose. She was treated with Narcan initially and transferred to the emergency room. She was found to have evidence of positive drug screen for opiates, try cyclic antidepressants, cocaine, and marijuana. Poison control was contacted in the ER. Patient remains intubated on the ventilator today in the ICU. Attempts were made today to try and wean her off of Diprivan but she was unable to tolerate this. Pulmonary medicine is following her condition closely in the ICU. She becomes extremely tachycardic with heart rates in the 100. Further weaning attempts will be made tomorrow. She did undergo a computed tomography scan of the brain yesterday which was negative for any acute changes. We will plan to get an EEG tomorrow for further assessment of her overall mental status. We will continue to follow her progress closely in the intensive care unit. Overall prognosis at this time remains guarded. Objective - Vital Signs Vital signs: Vital Signs Temp 100.1 F H 10/05/16 12:00 Pulse 83 10/05/16 14:00 Resp 22 10/05/16 14:00 BP 145/85 10/05/16 14:00 Pulse Ox 99 10/05/16 14:00 Intake & Output 10/04/16 10/05/16 10/05/16 18:59 06:59 18:59 Intake Total 3104.775 2547.5 1630.382 Output Total 2375 1460 2125 Balance 004.588 1156.5 -494.618 Weight 83.2 kg 80.3 kg 80.3 kg Intake: IV 1862.5 1687.5 512.5 Levofloxacin 750Mg-D5w 150 Pmx 750 mg In Dextrose/ Water 1 150ml.bag @ 100 mls/hr IVPB Q24H [facility] Rx#: [id number] Piperacillin-Tazobactam 3 12.5 87.5 62.5 .375 gm In Dextrose/Water 1 50ml.bag @ 12.5 mls/hr IVPB Q8H [facility] Rx#: [id number] Sodium Chloride 0.45% 1, 1600 1200 200 000 ml @ 200 mls/hr IV . Q5H [facility] Rx#:[id number] Vancomycin 1,500 mg In 250 250 250 Sodium Chloride 0.9% 250 ml @ 125 mls/hr IVPB Q12H [facility] Rx#:[id number] Intake, IV Titration 592.275 200 897.882 Amount Calcium Gluconate 2,000 100 mg In Sodium Chloride 0.9 % 100 ml @ 100 mls/hr IVPB ONCE ONE Rx#: [id number] Magnesium Sulfate-D5w Pmx 200 1 gm In Dextrose/Water 1 100ml.bag @ 100 mls/hr IVPB Q1H [facility] Rx#: [id number] Magnesium Sulfate-D5w Pmx 100 1 gm In Dextrose/Water 1 100ml.bag @ 100 mls/hr IVPB Q1H [facility] Rx#: [id number] Norepinephrin 4 mg-0.9% 4.687 Ns Pmx 4 mg In 250 ml @ Titrate IV .Q0M [facility] Rx#: [id number] Propofol 1,000 mg In 100 287.588 200 197.882 ml @ Titrate IV .Q0M [facility] Rx#:[id number] Sodium Chloride 0.45% 1, 500 000 ml @ 100 mls/hr IV . Q10H [facility] Rx#:[id number] Sodium Phosphate 10 mmol 100 In Sodium Chloride 0.9% 100 ml @ 50 mls/hr IVPB ONCE ONE Rx#:[id number] Tube Feeding 560 570 190 Other 90 90 30 Output: Urine 2375 1460 2125 Other: Voiding Method Indwelling Catheter Indwelling Catheter Indwelling Catheter # Bowel Movements 0 0 0 - Exam Physical examination: PHYSICAL EXAMINATION: Patient is resting comfortably in bed. Patient is intubated on the ventilator in the ICU. VITAL SIGNS: Blood pressure is [116/77]. Heart rate is [90]. Respiration is [24] . Temperature is [100.0]. HEENT: Head is atraumatic, neck is supple, there were no carotid bruits. CHEST: Lungs are clear to auscultation and percussion. CARDIAC: S1, S2 normal rate and rhythm. There is no murmur. ABDOMEN: Soft and nontender. Bowel sounds are present. EXTREMITIES: There is no pedal edema. Peripheral pulses are present. Neurological examination: Patient remains intubated on the ventilator in the intensive care unit. Her neurological examination is unchanged from yesterday. She continues to show evidence of a diffuse encephalopathy. - Labs CBC & Chem 7: 10/05/16 06:00 10/05/16 12:11 Labs: Abnormal Lab Results - Last 24 Hours (Table) 10/05/16 10/05/16 10/05/16 Range/Units 05:54 06:00 06:00 RBC 3.11 L (3.80-5.40) m/uL Hgb 9.6 L D (11.4-16.0) gm/dL Hct 28.4 L (34.0-46.0) % Neutrophils # 8.7 H (1.3-7.7) k/uL Lymphocytes # 0.9 L (1.0-4.8) k/uL ABG pH (7.35-7.45) ABG pCO2 (35-45) mmHg ABG pO2 (83-108) mmHg Chloride 113 H (98-107) mmol/L POC Glucose (mg/dL) 107 H (75-99) mg/dL Calcium 7.8 L (8.4-10.2) mg/dL Phosphorus 2.1 L (2.5-4.5) mg/dL AST 13 L (14-36) U/L Total Protein 4.7 L (6.3-8.2) g/dL Albumin 2.3 L (3.5-5.0) g/dL 10/05/16 10/05/16 Range/Units 08:32 12:15 RBC (3.80-5.40) m/uL Hgb (11.4-16.0) gm/dL Hct (34.0-46.0) % Neutrophils # (1.3-7.7) k/uL Lymphocytes # (1.0-4.8) k/uL ABG pH 7.48 H (7.35-7.45) ABG pCO2 28 L (35-45) mmHg ABG pO2 78 L (83-108) mmHg Chloride (98-107) mmol/L POC Glucose (mg/dL) 108 H (75-99) mg/dL Calcium (8.4-10.2) mg/dL Phosphorus (2.5-4.5) mg/dL AST (14-36) U/L Total Protein (6.3-8.2) g/dL Albumin (3.5-5.0) g/dL Microbiology - Last 24 Hours (Table) 10/02/16 20:50 Gram Stain - Final Sputum Sputum Culture - Final 10/02/16 19:21 Blood Culture Gram Stain - Final Blood Blood Culture - Final Methicillin resist S. aureus Assessment and Plan (1) Acute metabolic encephalopathy Status: Acute Code(s): G93.41 - METABOLIC ENCEPHALOPATHY (2) Acute and chronic respiratory failure with hypoxia Status: Acute Code(s): J96.21 - ACUTE AND CHRONIC RESPIRATORY FAILURE WITH HYPOXIA (3) Aspiration pneumonia Status: Acute Code(s): J69.0 - PNEUMONITIS DUE TO INHALATION OF FOOD AND VOMIT (4) Drug overdose Status: Acute Code(s): T50.901A - POISONING BY UNSP DRUG/MEDS/BIOL SUBST, ACCIDENTAL, INIT Plan: This patient is a 46-year-old female who was admitted to the intensive care unit with possible drug overdose. She remains intubated on the ventilator today. Attempts to wean her off of the Diprivan failed today and attempts will be made again tomorrow. She underwent computed tomography scan of the brain which is negative for any acute changes. She continues to show evidence of a diffuse metabolic encephalopathy. We will obtain an EEG tomorrow for further evaluation. Overall prognosis at this time remains guarded.
[2016-10-05] MEDS ORDERED: VANCOMYCIN TROUGH DUE 1 EACH MISC MISCELLANE ONE (18:00)
[2016-10-05 18:08] LABS: Glucose,Whole Blood 105 mg/dL (75-99)
[2016-10-05] MEDS: LEVOFLOXACIN 750MG-D5W PMX 750 MG in DEXTROSE/WATER 1 150ML.BAG IVPB SCH (19:15)
[2016-10-06] MEDS: HEPARIN SODIUM,PORCINE 5,000 UNIT/ML 1 ML VIAL SQ SCH ×3 (02:12→16:19)
[2016-10-06] MEDS: SODIUM CHLORIDE 0.45% 1,000 ML IV SCH ×3 (02:13→16:21)
[2016-10-06] MEDS: PROPOFOL 1,000 MG/100 ML VIAL IV SCH ×5 (02:15→23:52)
[2016-10-06 02:43] LABS: Glucose,Whole Blood 100 mg/dL (75-99)
[2016-10-06] MEDS: PIPERACILLIN-TAZOBACTAM 3.375 GM in DEXTROSE/WATER 1 50ML.BAG IVPB SCH ×3 (04:48→21:46)
[2016-10-06 05:36] LABS: ABG Base Excess -6.3 mmol/L; ABG HCO3 16 mmol/L (21-25); ABG PCO2 21 mmHg (35-45); ABG PO2 104 mmHg (83-108); ABG TCO2 17 mmol/L (19-24)
[2016-10-06] MEDS ORDERED: VANCOMYCIN TROUGH DUE 1 EACH MISC MISCELLANE ONE (06:00)
[2016-10-06] MEDS: VANCOMYCIN 1,500 MG in SODIUM CHLORIDE 0.9% 250 ML IVPB SCH ×2 (06:42→16:30)
[2016-10-06 06:43] LABS: Basophils % (A) 0 %; CH 30.7; CHCM 33.3; Eosinophils # (A) 0.2 k/uL (0-0.7); Eosinophils % (A) 2 %; HCT 28.5 % (34.0-46.0); HDW 2.95; HGB 9.8 gm/dL (11.4-16.0); Luc % (Auto) 2; Lymphocytes # (A) 0.8 k/uL (1.0-4.8); Lymphocytes % (A) 9 %; MCH 31.6 pg (25.0-35.0); MCHC 34.2 g/dL (31.0-37.0); MCV 92.6 fL (80.0-100.0); Mean Platelet Volume 7.8; Monocytes # (A) 0.5 k/uL (0-1.0); Monocytes % (A) 6 %; Neutrophils % (A) 81 %; RBC 3.08 m/uL (3.80-5.40); RDW 14.3 % (11.5-15.5); WBC 8.7 k/uL (3.8-10.6); WBC (Perox) 9.41
[2016-10-06 06:44] LABS: Glucose,Whole Blood 102 mg/dL (75-99)
[2016-10-06 06:51] LABS: INR 1.1 (<1.2); Prothrombin Time 10.8 sec (9.0-12.0)
[2016-10-06 06:59] LABS: ALT 26 U/L (9-52); AST 14 U/L (14-36); Alkaline Phosphatase 56 U/L (38-126); Anion Gap 8 mmol/L; Blood Urea Nitrogen 11 mg/dL (7-17); Calcium 7.9 mg/dL (8.4-10.2); Carbon Dioxide 24 mmol/L (22-30); Chloride 112 mmol/L (98-107); Glucose 93 mg/dL (74-99); Magnesium 1.8 mg/dL (1.6-2.3); Non-African American GFR(MDRD) >60 (>60 ml/min/1.73 sqM); Phosphorous 3.5 mg/dL (2.5-4.5); Potassium 3.9 mmol/L (3.5-5.1); Sodium 144 mmol/L (137-145); Total Bilirubin 0.7 mg/dL (0.2-1.3)
--- NOTE | 2016-10-06 07:07 | XR ---
EXAMINATION TYPE: XR chest 1V DATE OF EXAM: 10/06/2016 HISTORY: ventilator. REFERENCE: Previous study dated 10/05/2016. FINDINGS: There has been a previous ACDF of the lower cervical spine. The patient is ET tube and NG tube remain in place, unchanged in appearance. There is a right interna l jugular catheter in place. Its tip is at the cavoatrial junction. There is continuing right lower lung opacity. This is likely a combination of fluid and airspace dise ase. There is some atelectasis at the left lung base. Note is made of hypertrophic change in the AC joints bilaterally. IMPRESSION: 1. RIGHT BASILAR AIRSPACE DISEASE. 2. RIGHT-SIDED EFFUSION. 3. LEFT BASILAR ATELECTASIS.
[2016-10-06] MEDS: IPRATROPIUM-ALBUTEROL 3 ML NEB INHALATION PRN ×4 (07:35→19:08)
[2016-10-06] MEDS: CHLORHEXIDINE GLUCONATE 15 ML CUP MUCOUS MEM SCH ×3 (08:11→21:45)
[2016-10-06] MEDS: FAMOTIDINE 20 MG/2 ML VIAL IV SCH ×2 (08:43→21:45)
[2016-10-06] MEDS: MAGNESIUM SULFATE-D5W PMX 1 GM in DEXTROSE/WATER 1 100ML.BAG IVPB SCH ×2 (08:43→09:48)
[2016-10-06] MEDS ORDERED: POTASSIUM CHLORIDE ORAL LIQUID 40 MEQ/30 ML CUP NG-TUBE SCH (09:00)
[2016-10-06] MEDS: LORazepam 2 MG/ML SYRINGE IV PRN ×4 (09:17→17:06)
[2016-10-06] MEDS ORDERED: IBUPROFEN 400 MG TAB PO PRN (09:58)
[2016-10-06 12:31] LABS: Glucose,Whole Blood 99 mg/dL (75-99)
--- NOTE | 2016-10-06 12:52 | PN ---
The patient remains on ventilator in the ICU. Every time we wean her she has severely very aggressive behavior is thrashing around the bed. Sedation is given . Back on the vent by pest control service representative. Poison control was talked to about medications. Take up to five days for them to leave the body. Otherwise, the patient continues on current treatments. Weaning parameters. ICU notes reviewed. Labs reviewed. Vent settings reviewed. Discussed case with family members who were there which is a family friend. We will wean the vent as we can. CHRISTINED
--- NOTE | 2016-10-06 14:15 | P.PN ---
Subjective his is a 46-year-old female patient being seen, examined and evaluated today in the intensive care unit. This patient presented to the emergency room on via EMS for overdose. Apparently the patient was at home and her roommate found her unresponsive around multiple bottles of pills, therefore the roommate forced her to vomit before EMS arrival. When EMS arrived they did no there was pill fragments in her vomit. EMS did give the patient Narcan with minimal improvement of her symptoms. It is unclear what medications the patient did consume however there is speculation that it was morphine, gabapentin as well as baclofen. The patient's urine drug screen was positive for opiates, tricyclic antidepressants, cocaine and marijuana. Poison control has been contacted and they have been assisting in the case as well. Upon examination the patient is in sync with mechanical ventilation, propofol on for sedation. Ventilator settings are assist control with a rate of 14, tidal volume 400, FiO2 of 50%, and a PEEP of 5. She has had blood pressures systolically 90s and average, she has not required vasopressors at this time. Patient's chest x-ray from this morning has been reviewed and does reveal that there is a new air space consolidation in the right lower lobe which may reflect atelectasis infiltrate and/or effusion. The patient also underwent a sedation holiday this morning her propofol was off for approximately 60 minutes. The patient was able to move all 4 extremities she did have a cough and a gag reflex, she was thrashing in the bed however she never opened her eyes, never followed commands and her respiratory rate was in the 40s, therefore she was put back on assist control mode. Currently there is no family listed in the chart, she has no power of commercial real estate attorney or next of kin that we are aware of, we will look to get anymore information from the roommate that found her. Of note, according the the timeline of when the patient ingested the pills and vomited untill the roommate called EMS was a 12 hour span that the patient was "passed out". It is unclear if the patient woke up and took more pills in between vomiting the pills up the first time, untill she found unresponsive 12 hours later. 10/04/16, patient seen and evaluated and examined remains intermittently hypotensive in spite of aggressive fluid resuscitation attempts were A-line has been unsuccessful patient will need a central line main somewhat comatose in spite of weaning the propofol drip and neurology consultation is being obtained. Care plan discussed with the poison control as well but does condition is related to baclofen patient mental status however remains marginal she becomes anxious and agitated when propofol is being tapered down her chest x -ray from today is reviewed she has a dense infiltrate in the right lower lobe she is tolerating every feed very well been on DVT and peptic ulcer disease prophylaxis as well , I have discussed at length with the with the family present at bedside including daughter and sister, about the care plan and prognosis proceed with a central line placement for lites and try to keep magnesium over 2-3 and potassium over 4 calcium as well must see orders for detail. Patient remains on full ventilatory support current vent settings are assist control rate of 14 tidal volume of 400. 5 of PEEP and FiO2 down to 50% 10/05/16, patient seen and evaluated examined in the Rounds care plan discussed with the family at length, critical care time spent 35 minutes patient remains intubated on full respirator support currently she is on assist control rate of 14 breathing about 2750% oxygen 400 tidal volume and 5 of PEEP and on tube feed tolerating very well, attempts were done to see been off the propofol which was low down to 30 mics however patient did not open her eyes because very anxious and agitated respiratory rate went all the way up into mid 30s and 40s becomes extremely tachycardic with heart rate in 100s, at that time patient sedation was resumed and was given additional doses of Ativan reviewed the neurology recommendation and computed tomography scan of the head 10/06/16. Patient seen and evaluated and examined on rounds. Patient remains intubated on full respiratory support, patient on assist control mode respiratory rate of 14 tidal volume of 400 FiO2 50% and a PEEP of 5. Patient also on ventilator prevention measures. Sedation holiday was done this morning and the patient did not tolerate this and was switched back to assist control mode. Patient did undergo an EEG this morning those results are not readily available at this time. During the patient sedation holiday this morning the patient was able to blink however was not purposeful with her movements. Chest x-ray from this morning was reviewed and shows a right basilar airspace disease , right-sided effusion, and left basilar atelectasis. Labs also reviewed. Objective - Vital Signs Vital signs: Vital Signs Temp 101.0 F H 10/06/16 08:00 Pulse 81 10/06/16 13:00 Resp 25 H 10/06/16 13:00 BP 108/64 10/06/16 13:00 Pulse Ox 98 10/06/16 13:00 Intake & Output 10/05/16 10/06/16 10/06/16 18:59 06:59 18:59 Intake Total 2222.382 1156.040 995.081 Output Total 3100 3625 1100 Balance -877.618 -2468.960 -104.919 Weight 80.3 kg 86.5 kg 86.5 kg Intake: IV 512.5 400 650 Levofloxacin 750Mg-D5w 150 Pmx 750 mg In Dextrose/ Water 1 150ml.bag @ 100 mls/hr IVPB Q24H [facility] Rx#: [id number] Piperacillin-Tazobactam 3 62.5 .375 gm In Dextrose/Water 1 50ml.bag @ 12.5 mls/hr IVPB Q8H [facility] Rx#: [id number] Sodium Chloride 0.45% 1, 400 000 ml @ 100 mls/hr IV . Q10H [facility] Rx#:[id number] Sodium Chloride 0.45% 1, 200 000 ml @ 200 mls/hr IV . Q5H [facility] Rx#:[id number] Vancomycin 1,500 mg In 250 250 250 Sodium Chloride 0.9% 250 ml @ 125 mls/hr IVPB Q12H [facility] Rx#:[id number] Intake, IV Titration 1297.882 376.040 163.081 Amount Magnesium Sulfate-D5w Pmx 100 1 gm In Dextrose/Water 1 100ml.bag @ 100 mls/hr IVPB Q1H [facility] Rx#: [id number] Magnesium Sulfate-D5w Pmx 100 1 gm In Dextrose/Water 1 100ml.bag @ 100 mls/hr IVPB Q1H [facility] Rx#: [id number] Propofol 1,000 mg In 100 197.882 276.040 63.081 ml @ Titrate IV .Q0M [facility] Rx#:[id number] Sodium Chloride 0.45% 1, 900 100 000 ml @ 100 mls/hr IV . Q10H [facility] Rx#:[id number] Sodium Phosphate 10 mmol 100 In Sodium Chloride 0.9% 100 ml @ 50 mls/hr IVPB ONCE ONE Rx#:[id number] Tube Feeding 342 380 152 Other 70 30 Output: Urine 3100 3625 1100 Other: Voiding Method Indwelling Catheter Indwelling Catheter Indwelling Catheter # Bowel Movements 0 0 - Exam GENERAL EXAM: On mechanical ventilation with propofol for sedation, HEAD: Normocephalic. EYES: Or reaction of pupils, equal size. NOSE: Clear with pink turbinates. THROAT: No erythema or exudates. hypoactive cough and gag reflex NECK: No masses, no JVD, triple-lumen site is intact on the right neck. CHEST: No chest wall deformity. LUNGS: Equal air entry noted to be coarse with no crackles, wheeze, rhonchi or dullness. Bases diminished coarse breath sounds are present especially on the right base CVS: S1 and S2 normal with no audible mumurs, regular rhythm. ABDOMEN: No hepatosplenomegaly, normal bowel sounds, no guarding or rigidity. EXTREMITIES: trace edema noted, pedal pulses palpable. SKIN: No rashes CENTRAL NERVOUS SYSTEM: On mechanical ventilation with propofol for sedation, withdraws to pain - Labs CBC & Chem 7: 10/06/16 06:25 10/06/16 06:25 Labs: Abnormal Lab Results - Last 24 Hours (Table) 10/05/16 10/06/16 10/06/16 Range/Units 18:07 02:41 05:28 RBC (3.80-5.40) m/uL Hgb (11.4-16.0) gm/dL Hct (34.0-46.0) % Lymphocytes # (1.0-4.8) k/uL ABG pH 7.50 H (7.35-7.45) ABG pCO2 21 L (35-45) mmHg ABG HCO3 16 L (21-25) mmol/L ABG Total CO2 17 L (19-24) mmol/L ABG O2 Saturation 99.0 H (94-97) % Chloride (98-107) mmol/L POC Glucose (mg/dL) 105 H 100 H (75-99) mg/dL Calcium (8.4-10.2) mg/dL Total Protein (6.3-8.2) g/dL Albumin (3.5-5.0) g/dL 10/06/16 10/06/16 10/06/16 Range/Units 06:25 06:25 06:25 RBC 3.08 L (3.80-5.40) m/uL Hgb 9.8 L (11.4-16.0) gm/dL Hct 28.5 L (34.0-46.0) % Lymphocytes # 0.8 L (1.0-4.8) k/uL ABG pH (7.35-7.45) ABG pCO2 (35-45) mmHg ABG HCO3 (21-25) mmol/L ABG Total CO2 (19-24) mmol/L ABG O2 Saturation (94-97) % Chloride 112 H (98-107) mmol/L POC Glucose (mg/dL) 102 H (75-99) mg/dL Calcium 7.9 L (8.4-10.2) mg/dL Total Protein 5.0 L (6.3-8.2) g/dL Albumin 2.5 L (3.5-5.0) g/dL Microbiology - Last 24 Hours (Table) 10/02/16 19:21 Blood Culture Gram Stain - Final Blood Blood Culture - Final Methicillin resist S. aureus Assessment and Plan Plan: Assessment Acute hypoxic respiratory failure Aspiration pneumonia, right lower lobe, likely related to MRSA which is isolated in the blood, sputum is also growing gram-positive cocci overall appears to be MRSA pneumonia and bacteremia Severe Sepsis with septic shock Drug overdose, unclear if it was intentional or unintentional Hypotension Encephalopathy likely related to medication with comatose state Drug overdose and polysubstance abuse Plan Medications have been reviewed and will be continued as ordered. We will stay in close contact with poison control and appreciate recommendations from them. She will remain on mechanical ventilation today. Continue with sedation holidays daily. May start Levo to maintain MAP of 65 for hypotension. Continue with IV antibiotics. Continue with pulmonary hygiene, coughing and deep breathing exercises, and supportive care. Supplemental oxygen to maintain oxygen saturations of 92% or better. Continue nebulizer treatments. Infectious disease consult it for positive cultures. Monitor and replace electrolytes per protocol. Repeat chest x-ray and labs in the morning. GI and DVT prophylaxis. We will continue to monitor labs/results and adjust treatment as necessary. Further recommendations pending. I performed an examination of the patient and discussed their management with the nurse practitioner. I have reviewed the nurse practitioner's note and agree with the documented findings and plan of care.
[2016-10-06] MEDS ORDERED: VANCOMYCIN 1,750 MG in SODIUM CHLORIDE 0.9% 250 ML IVPB SCH (16:00)
[2016-10-06 18:52] LABS: Glucose,Whole Blood 97 mg/dL (75-99)
--- NOTE | 2016-10-06 23:00 | P.PN ---
Subjective This patient is a 46-year-old female who is evaluated today in the intensive care unit. She was seen in neurology consultation yesterday for drug overdose and obtundation and remains intubated on the ventilator. Pulmonary medicine is following the patient closely. She remains sedated on low dose Diprivan at this time. The patient was admitted with possible drug overdose. She was treated with Narcan initially and transferred to the emergency room. She was found to have evidence of positive drug screen for opiates, try cyclic antidepressants, cocaine, and marijuana. Poison control was contacted in the ER. Patient remains intubated on the ventilator today in the ICU. Attempts were made today to try and wean her off of Diprivan but she was unable to tolerate this. Pulmonary medicine is following her condition closely in the ICU. She becomes extremely tachycardic with heart rates in the 100. Further weaning attempts will be made tomorrow. She did undergo a computed tomography scan of the brain yesterday which was negative for any acute changes. We will plan to get an EEG today for further assessment of her overall mental status. Patient has been unable to wean off of Diprivan today. She remains on 50 mics of IV Diprivan. They are going to attempt to wean again tomorrow. We reviewed her routine EEG which was done today which reveals severe slowing suggesting a severe encephalopathy. We will need to continue close monitoring of her condition in the ICU. We will continue to follow her progress closely in the intensive care unit. Overall prognosis at this time remains very guarded. Objective - Vital Signs Vital signs: Vital Signs Temp 99.4 F 10/06/16 16:00 Pulse 78 10/06/16 19:18 Resp 25 H 10/06/16 18:00 BP 115/75 10/06/16 18:00 Pulse Ox 98 10/06/16 18:00 Intake & Output 10/06/16 10/06/16 10/07/16 06:59 18:59 06:59 Intake Total 5382.268 3638.000 138 Output Total 3625 2100 75 Balance -2468.960 102.000 63 Weight 86.5 kg 86.5 kg Intake: IV 400 1600 100 Levofloxacin 750Mg-D5w 150 Pmx 750 mg In Dextrose/ Water 1 150ml.bag @ 100 mls/hr IVPB Q24H [facility] Rx#: [id number] Piperacillin-Tazobactam 3 50 .375 gm In Dextrose/Water 1 50ml.bag @ 12.5 mls/hr IVPB Q8H [facility] Rx#: [id number] Sodium Chloride 0.45% 1, 1050 100 000 ml @ 100 mls/hr IV . Q10H [facility] Rx#:[id number] Vancomycin 1,500 mg In 250 500 Sodium Chloride 0.9% 250 ml @ 125 mls/hr IVPB Q12H [facility] Rx#:[id number] Intake, IV Titration 376.040 200.000 Amount Magnesium Sulfate-D5w Pmx 100 1 gm In Dextrose/Water 1 100ml.bag @ 100 mls/hr IVPB Q1H [facility] Rx#: [id number] Propofol 1,000 mg In 100 276.040 100.000 ml @ Titrate IV .Q0M [facility] Rx#:[id number] Sodium Chloride 0.45% 1, 100 000 ml @ 100 mls/hr IV . Q10H [facility] Rx#:[id number] Tube Feeding 380 342 38 Other 60 Output: Urine 3625 2100 75 Other: Voiding Method Indwelling Catheter Indwelling Catheter # Bowel Movements 1 - Exam Physical examination: PHYSICAL EXAMINATION: Patient is resting comfortably in bed. Patient is intubated on the ventilator in the ICU. VITAL SIGNS: Blood pressure is [115/75]. Heart rate is [74]. Respiration is [25] . Temperature is [99.4]. HEENT: Head is atraumatic, neck is supple, there were no carotid bruits. CHEST: Lungs are clear to auscultation and percussion. CARDIAC: S1, S2 normal rate and rhythm. There is no murmur. ABDOMEN: Soft and nontender. Bowel sounds are present. EXTREMITIES: There is no pedal edema. Peripheral pulses are present. Neurological examination: Patient remains intubated on the ventilator in the intensive care unit. Her neurological examination is unchanged from yesterday. She continues to show evidence of a diffuse encephalopathy. - Labs CBC & Chem 7: 10/06/16 06:25 10/06/16 06:25 Labs: Abnormal Lab Results - Last 24 Hours (Table) 10/06/16 10/06/16 10/06/16 Range/Units 02:41 05:28 06:25 RBC 3.08 L (3.80-5.40) m/uL Hgb 9.8 L (11.4-16.0) gm/dL Hct 28.5 L (34.0-46.0) % Lymphocytes # 0.8 L (1.0-4.8) k/uL ABG pH 7.50 H (7.35-7.45) ABG pCO2 21 L (35-45) mmHg ABG HCO3 16 L (21-25) mmol/L ABG Total CO2 17 L (19-24) mmol/L ABG O2 Saturation 99.0 H (94-97) % Chloride (98-107) mmol/L POC Glucose (mg/dL) 100 H (75-99) mg/dL Calcium (8.4-10.2) mg/dL Total Protein (6.3-8.2) g/dL Albumin (3.5-5.0) g/dL 10/06/16 10/06/16 Range/Units 06:25 06:25 RBC (3.80-5.40) m/uL Hgb (11.4-16.0) gm/dL Hct (34.0-46.0) % Lymphocytes # (1.0-4.8) k/uL ABG pH (7.35-7.45) ABG pCO2 (35-45) mmHg ABG HCO3 (21-25) mmol/L ABG Total CO2 (19-24) mmol/L ABG O2 Saturation (94-97) % Chloride 112 H (98-107) mmol/L POC Glucose (mg/dL) 102 H (75-99) mg/dL Calcium 7.9 L (8.4-10.2) mg/dL Total Protein 5.0 L (6.3-8.2) g/dL Albumin 2.5 L (3.5-5.0) g/dL Microbiology - Last 24 Hours (Table) 10/02/16 19:21 Blood Culture Gram Stain - Final Blood Blood Culture - Final Methicillin resist S. aureus Assessment and Plan (1) Acute metabolic encephalopathy Status: Acute Code(s): G93.41 - METABOLIC ENCEPHALOPATHY (2) Acute and chronic respiratory failure with hypoxia Status: Acute Code(s): J96.21 - ACUTE AND CHRONIC RESPIRATORY FAILURE WITH HYPOXIA (3) Aspiration pneumonia Status: Acute Code(s): J69.0 - PNEUMONITIS DUE TO INHALATION OF FOOD AND VOMIT (4) Drug overdose Status: Acute Code(s): T50.901A - POISONING BY UNSP DRUG/MEDS/BIOL SUBST, ACCIDENTAL, INIT Plan: This patient is a 46-year-old female who was admitted to the intensive care unit with possible drug overdose. She remains intubated on the ventilator today. Attempts to wean her off of the Diprivan failed today and attempts will be made again tomorrow. She underwent computed tomography scan of the brain which is negative for any acute changes. She continues to show evidence of a diffuse metabolic encephalopathy. We will obtain an EEG today for further evaluation. The EEG was reviewed today and reveals severe slowing consistent with a severe diffuse encephalopathy. The patient remains on 50 mics of Diprivan. We will need to continue to try weaning parameters for this patient over the next 24 hours. We will continue to follow her closely in the intensive care unit. Overall prognosis at this time remains very guarded.
[2016-10-07] MEDS: HEPARIN SODIUM,PORCINE 5,000 UNIT/ML 1 ML VIAL SQ SCH ×3 (00:26→18:22)
[2016-10-07] MEDS: VANCOMYCIN 1,500 MG in SODIUM CHLORIDE 0.9% 250 ML IVPB SCH ×3 (00:55→17:23)
[2016-10-07] MEDS: LORazepam 2 MG/ML SYRINGE IV PRN ×5 (01:26→14:11)
[2016-10-07] MEDS: LEVOFLOXACIN 750MG-D5W PMX 750 MG in DEXTROSE/WATER 1 150ML.BAG IVPB SCH (02:21)
[2016-10-07] MEDS: PROPOFOL 1,000 MG/100 ML VIAL IV SCH ×6 (02:52→22:45)
[2016-10-07] MEDS: PIPERACILLIN-TAZOBACTAM 3.375 GM in DEXTROSE/WATER 1 50ML.BAG IVPB SCH ×3 (04:43→20:06)
[2016-10-07 05:28] LABS: ABG HCO3 21 mmol/L (21-25); ABG PCO2 25 mmHg (35-45); ABG PH 7.54 (7.35-7.45); ABG PO2 68 mmHg (83-108); ABG TCO2 22 mmol/L (19-24)
--- NOTE | 2016-10-07 05:41 | EEG ---
DATE OF SERVICE: 10/06/2016 ELECTROENCEPHALOGRAPHIC EXAMINATION REPORT INDICATION FOR EXAMINATION: This patient is a 46-year-old female currently intubated on the ventilator in the intensive care unit. Patient admitted with drug overdose and severe obtundation. AGE: 46. EEG FINDINGS: A routine 21-channel awake, digital EEG recording was accomplished utilizing the 10-20 international system with bipolar and referential montages. The background activity in the most alert resting state consists of a low amplitude, poorly developed and poorly sustained 5 Hz activity over the posterior head regions. This posterior rhythm attenuates minimally to eye opening. There is a small amount of low amplitude 18-20 Hz beta activity seen maximally over the anterior head regions. Muscle and movement artifact was observed only on a few occasions during the tracing. Hyperventilation was not performed. Photic stimulation at flash frequencies of 2-30 Hz produced a minimal occipital driving response. No epileptiform discharges were seen. IMPRESSION: This EEG gives evidence of a severe widespread diffuse disturbance in cerebral function. The EEG failed to reveal any focal, lateralized or epileptiform abnormalities. If clinically indicated, a follow-up EEG is recommended. Clinical correlation is recommended. MTDD
[2016-10-07 06:50] LABS: Glucose,Whole Blood 105 mg/dL (75-99)
--- NOTE | 2016-10-07 07:25 | XR ---
EXAMINATION TYPE: XR chest 1V DATE OF EXAM: 10/07/2016 COMPARISON: 10/06/2016 HISTORY: SOB, Follow Up FINDINGS: Indwelling tubes and catheters are unchanged. No change in bibasilar opacities. Stable appearance of the cardio-mediastinal structures at this time. Pleural effusion unchanged. IMPRESSION: 1. Stable portable chest. Clinical correlation and follow up until resolution is recommended.
[2016-10-07 07:29] LABS: Basophils % (A) 0 %; CH 30.2; CHCM 33.6; Eosinophils # (A) 0.2 k/uL (0-0.7); Eosinophils % (A) 3 %; HCT 30.8 % (34.0-46.0); HDW 3.09; HGB 10.3 gm/dL (11.4-16.0); Luc # (Auto) 0.19; Luc % (Auto) 2; Lymphocytes # (A) 0.8 k/uL (1.0-4.8); Lymphocytes % (A) 10 %; MCH 30.2 pg (25.0-35.0); MCHC 33.5 g/dL (31.0-37.0); MCV 90.4 fL (80.0-100.0); Mean Platelet Volume 7.2; Monocytes # (A) 0.6 k/uL (0-1.0); Monocytes % (A) 7 %; Neutrophils # (A) 6.8 k/uL (1.3-7.7); Neutrophils % (A) 79 %; RDW 13.8 % (11.5-15.5); WBC 8.6 k/uL (3.8-10.6)
[2016-10-07 07:41] LABS: Prothrombin Time 10.6 sec (9.0-12.0)
[2016-10-07 07:51] LABS: AST 19 U/L (14-36); Anion Gap 8 mmol/L; Blood Urea Nitrogen 9 mg/dL (7-17); Carbon Dioxide 24 mmol/L (22-30); Chloride 111 mmol/L (98-107); Glucose 99 mg/dL (74-99); Non-African American GFR(MDRD) >60 (>60 ml/min/1.73 sqM); Potassium 3.6 mmol/L (3.5-5.1); Sodium 143 mmol/L (137-145); Total Bilirubin 0.6 mg/dL (0.2-1.3); Total Protein 5.4 g/dL (6.3-8.2)
[2016-10-07 07:52] LABS: ALT 25 U/L (9-52); Alkaline Phosphatase 62 U/L (38-126); Magnesium 1.8 mg/dL (1.6-2.3)
[2016-10-07] MEDS: IPRATROPIUM-ALBUTEROL 3 ML NEB INHALATION PRN ×4 (08:11→20:00)
[2016-10-07] MEDS: FAMOTIDINE 20 MG/2 ML VIAL IV SCH ×2 (08:46→20:06)
[2016-10-07] MEDS: CHLORHEXIDINE GLUCONATE 15 ML CUP MUCOUS MEM SCH ×2 (08:46→20:06)
[2016-10-07] MEDS: SODIUM CHLORIDE 0.45% 1,000 ML IV SCH ×3 (08:59→18:26)
[2016-10-07] MEDS ORDERED: Potassium Replacement Protocol 1 EACH MISC MISCELLANE PRN (10:32)
[2016-10-07] MEDS: POTASSIUM CHLORIDE 10 MEQ in WATER FOR INJECTION 1 100ML.BAG IVPB SCH ×2 (11:01→12:36)
--- NOTE | 2016-10-07 11:39 | P.PN ---
Subjective his is a 46-year-old female patient being seen, examined and evaluated today in the intensive care unit. This patient presented to the emergency room on via EMS for overdose. Apparently the patient was at home and her roommate found her unresponsive around multiple bottles of pills, therefore the roommate forced her to vomit before EMS arrival. When EMS arrived they did no there was pill fragments in her vomit. EMS did give the patient Narcan with minimal improvement of her symptoms. It is unclear what medications the patient did consume however there is speculation that it was morphine, gabapentin as well as baclofen. The patient's urine drug screen was positive for opiates, tricyclic antidepressants, cocaine and marijuana. Poison control has been contacted and they have been assisting in the case as well. Upon examination the patient is in sync with mechanical ventilation, propofol on for sedation. Ventilator settings are assist control with a rate of 14, tidal volume 400, FiO2 of 50%, and a PEEP of 5. She has had blood pressures systolically 90s and average, she has not required vasopressors at this time. Patient's chest x-ray from this morning has been reviewed and does reveal that there is a new air space consolidation in the right lower lobe which may reflect atelectasis infiltrate and/or effusion. The patient also underwent a sedation holiday this morning her propofol was off for approximately 60 minutes. The patient was able to move all 4 extremities she did have a cough and a gag reflex, she was thrashing in the bed however she never opened her eyes, never followed commands and her respiratory rate was in the 40s, therefore she was put back on assist control mode. Currently there is no family listed in the chart, she has no power of civil attorney or next of kin that we are aware of, we will look to get anymore information from the roommate that found her. Of note, according the the timeline of when the patient ingested the pills and vomited untill the roommate called EMS was a 12 hour span that the patient was "passed out". It is unclear if the patient woke up and took more pills in between vomiting the pills up the first time, untill she found unresponsive 12 hours later. 10/04/16, patient seen and evaluated and examined remains intermittently hypotensive in spite of aggressive fluid resuscitation attempts were A-line has been unsuccessful patient will need a central line main somewhat comatose in spite of weaning the propofol drip and neurology consultation is being obtained. Care plan discussed with the poison control as well but does condition is related to baclofen patient mental status however remains marginal she becomes anxious and agitated when propofol is being tapered down her chest x -ray from today is reviewed she has a dense infiltrate in the right lower lobe she is tolerating every feed very well been on DVT and peptic ulcer disease prophylaxis as well , I have discussed at length with the with the family present at bedside including daughter and sister, about the care plan and prognosis proceed with a central line placement for lites and try to keep magnesium over 2-3 and potassium over 4 calcium as well must see orders for detail. Patient remains on full ventilatory support current vent settings are assist control rate of 14 tidal volume of 400. 5 of PEEP and FiO2 down to 50% 10/05/16, patient seen and evaluated examined in the Rounds care plan discussed with the family at length, critical care time spent 35 minutes patient remains intubated on full respirator support currently she is on assist control rate of 14 breathing about 2750% oxygen 400 tidal volume and 5 of PEEP and on tube feed tolerating very well, attempts were done to see been off the propofol which was low down to 30 mics however patient did not open her eyes because very anxious and agitated respiratory rate went all the way up into mid 30s and 40s becomes extremely tachycardic with heart rate in 100s, at that time patient sedation was resumed and was given additional doses of Ativan reviewed the neurology recommendation and computed tomography scan of the head 10/06/16. Patient seen and evaluated and examined on rounds. Patient remains intubated on full respiratory support, patient on assist control mode respiratory rate of 14 tidal volume of 400 FiO2 50% and a PEEP of 5. Patient also on ventilator prevention measures. Sedation holiday was done this morning and the patient did not tolerate this and was switched back to assist control mode. Patient did undergo an EEG this morning those results are not readily available at this time. During the patient sedation holiday this morning the patient was able to blink however was not purposeful with her movements. Chest x-ray from this morning was reviewed and shows a right basilar airspace disease , right-sided effusion, and left basilar atelectasis. Labs also reviewed. 10/07/16 patient is seen and evaluated today on rounds. A full sedation holiday was performed this morning and on the patient and the propofol was completely turned off the patient was able to open her eyes completely however the patient would not track was not purposeful in her movements, she did move all extremities just not on command patient was noted to be extremely restless in bed. Patient is asynchronous with mechanical ventilation. Patient was also noted to be severely tachypneic and tachycardic. Therefore the patient had to be switched back over to assist control mode after about 50 minutes with sedation back on board. Patient did have an EEG yesterday which shows evidence of a severe widespread diffuse disturbance in cerebral function and follow-up EEG is recommended. Patient's ventilator settings have been adjusted to assist control mode of 20, tidal volume of 450 FiO2 of 50% and a PEEP of 5. Chest x- ray reviewed from this morning and shows a stable right lower lobe pneumonia. Family is at bedside and has been updated on patient's guarded prognosis and plan of care. Objective - Vital Signs Vital signs: Vital Signs Temp 100 F H 10/07/16 04:00 Pulse 85 10/07/16 11:10 Resp 20 10/07/16 11:00 BP 109/72 10/07/16 11:00 Pulse Ox 96 10/07/16 11:00 Intake & Output 10/06/16 10/07/16 10/07/16 18:59 06:59 18:59 Intake Total 2202.000 2207.325 1078.000 Output Total 2100 3045 1326 Balance 102.000 -837.675 -248.000 Weight 86.5 kg 84.2 kg Intake: IV 1600 1425 500 Piperacillin-Tazobactam 3 50 50 .375 gm In Dextrose/Water 1 50ml.bag @ 12.5 mls/hr IVPB Q8H [facility] Rx#: [id number] Sodium Chloride 0.45% 1, 1050 1125 500 000 ml @ 100 mls/hr IV . Q10H [facility] Rx#:[id number] Vancomycin 1,500 mg In 500 250 Sodium Chloride 0.9% 250 ml @ 125 mls/hr IVPB Q12H [facility] Rx#:[id number] Intake, IV Titration 200.000 326.325 350.000 Amount Magnesium Sulfate-D5w Pmx 100 1 gm In Dextrose/Water 1 100ml.bag @ 100 mls/hr IVPB Q1H [facility] Rx#: [id number] Propofol 1,000 mg In 100 100.000 326.325 100.000 ml @ Titrate IV .Q0M [facility] Rx#:[id number] Vancomycin 1,500 mg In 250 Sodium Chloride 0.9% 250 ml @ 125 mls/hr IVPB Q8H [facility] Rx#:[id number] Tube Feeding 342 456 228 Other 60 Output: Urine 2100 3045 1325 Stool 1 Other: Voiding Method Indwelling Catheter Indwelling Catheter Indwelling Catheter # Bowel Movements 1 1 1 - Exam GENERAL EXAM: On mechanical ventilation with propofol for sedation, HEAD: Normocephalic. EYES: Or reaction of pupils, equal size. NOSE: Clear with pink turbinates. THROAT: No erythema or exudates. hypoactive cough and gag reflex NECK: No masses, no JVD, triple-lumen site is intact on the right neck. CHEST: No chest wall deformity. LUNGS: Equal air entry noted to be coarse with no crackles, wheeze, rhonchi or dullness. Bases diminished coarse breath sounds are present especially on the right base CVS: S1 and S2 normal with no audible mumurs, regular rhythm. ABDOMEN: No hepatosplenomegaly, normal bowel sounds, no guarding or rigidity. EXTREMITIES: trace edema noted, pedal pulses palpable. SKIN: No rashes CENTRAL NERVOUS SYSTEM: On mechanical ventilation with propofol for sedation, withdraws to pain - Labs CBC & Chem 7: 10/07/16 07:20 10/07/16 07:20 Labs: Abnormal Lab Results - Last 24 Hours (Table) 10/07/16 10/07/16 10/07/16 Range/Units 05:26 06:29 07:20 RBC 3.40 L (3.80-5.40) m/uL Hgb 10.3 L (11.4-16.0) gm/dL Hct 30.8 L (34.0-46.0) % Lymphocytes # 0.8 L (1.0-4.8) k/uL ABG pH 7.54 H (7.35-7.45) ABG pCO2 25 L (35-45) mmHg ABG pO2 68 L (83-108) mmHg Chloride (98-107) mmol/L POC Glucose (mg/dL) 105 H (75-99) mg/dL Calcium (8.4-10.2) mg/dL Total Protein (6.3-8.2) g/dL Albumin (3.5-5.0) g/dL 10/07/16 Range/Units 07:20 RBC (3.80-5.40) m/uL Hgb (11.4-16.0) gm/dL Hct (34.0-46.0) % Lymphocytes # (1.0-4.8) k/uL ABG pH (7.35-7.45) ABG pCO2 (35-45) mmHg ABG pO2 (83-108) mmHg Chloride 111 H (98-107) mmol/L POC Glucose (mg/dL) (75-99) mg/dL Calcium 8.0 L (8.4-10.2) mg/dL Total Protein 5.4 L (6.3-8.2) g/dL Albumin 2.8 L (3.5-5.0) g/dL Microbiology - Last 24 Hours (Table) 10/02/16 19:21 Blood Culture Gram Stain - Final Blood Blood Culture - Final Methicillin resist S. aureus Assessment and Plan Plan: Assessment Acute hypoxic respiratory failure Aspiration pneumonia, right lower lobe, likely related to MRSA which is isolated in the blood, sputum is also growing gram-positive cocci overall appears to be MRSA pneumonia and bacteremia Severe Sepsis with septic shock Drug overdose, unclear if it was intentional or unintentional Hypotension Encephalopathy likely related to medication with comatose state Drug overdose and polysubstance abuse Plan Family at bedside during around him have been updated on patient's guarded prognosis as well as plan of care at length. All questions have been answered. Neurology on consult and appreciate recommendations. Medications have been reviewed and will be continued as ordered. We will stay in close contact with poison control and appreciate recommendations from them. She will remain on mechanical ventilation today. Continue with sedation holidays daily. May start Levo to maintain MAP of 65 for hypotension. Continue with IV antibiotics. Continue with pulmonary hygiene, coughing and deep breathing exercises, and supportive care. Supplemental oxygen to maintain oxygen saturations of 92% or better. Continue nebulizer treatments. Infectious disease consult it for positive cultures. Replete 1 cultures have been obtained. Monitor and replace electrolytes per protocol. Repeat chest x-ray and labs in the morning. GI and DVT prophylaxis. We will continue to monitor labs/results and adjust treatment as necessary. Further recommendations pending. I performed an examination of the patient and discussed their management with the nurse practitioner. I have reviewed the nurse practitioner's note and agree with the documented findings and plan of care.
[2016-10-07 12:13] LABS: Glucose,Whole Blood 100 mg/dL (75-99)
--- NOTE | 2016-10-07 13:10 | PN ---
SUBJECTIVE: 46 -year-old white female with overdose, aspiration pneumonia, still on the ventilator, unable to wean. Vital signs are stabilized. Weaning parameters were discussed with shipyard painting supervisor who continued to wean. Pulmonology. ( ) for aspiration pneumonia. Polysubstance abuse and prognosis guarded but discussed with the family. We will continue with current treatments. ICU time 30 minutes. MTDD
[2016-10-07 19:01] LABS: Glucose,Whole Blood 101 mg/dL (75-99)
--- NOTE | 2016-10-07 19:09 | CONS ---
DATE OF CONSULTATION: 10/07/2016 REASON FOR CONSULTATION: MRSA bacteremia and aspiration pneumonia. HISTORY OF PRESENT ILLNESS: The patient is a 46 year old female who was brought into the ER by EMS on 10/02 after they were called for the patient being unresponsive at home by the roommate. The roommate suspected that the patient may have overdosed on the drugs and she tried to get the patient to vomit. On arrival of the EMS, there was some half crushed pills in her vomit. The patient did receive Narcan with no significant improvement. Subsequently, she was brought into the ER. The patient has been intubated. The urine drug screen was positive for tricyclic opiates, antidepressants, cocaine and marijuana. The patient did have a new right upper lobe infiltrate. She has been treated with Zosyn. Blood culture has been obtained. ( ) blood cultures came back positive for MRSA, hence ID was consulted for further recommendations regarding antibiotic therapy. The patient is currently intubated on the vent. Not on any pressor support. The FIO2 remains to be stable. The patient has been tolerating tube feeds. Did have slight ( ) per the RN. She has been given a sedation holiday. There is no clear history if the patient has used any IV drugs or not. REVIEW OF SYSTEMS: Could not be reliably obtained. The positive points have been mentioned in the HPI. Past medical history significant for chronic back pain and thyroid disorder. Past surgical history: Appendectomy and tubal ligation. Neck fusion. SOCIAL HISTORY: Positive for drug use. No clear history of any IV drug use. FAMILY HISTORY: No pertinent findings were noticed. ALLERGIES: TYLENOL, ASPIRIN AND ( ). Medications currently include the patient is on: 1. DuoNeb. 2. Chlorhexidine. 3. Pepcid. 4. Heparin. 5. Motrin. 6. Levofloxacin. 7. Ativan. 8. Vancomycin pharmacy to dose. 9. Piptazobactam. On examination, blood pressure is 109/72 with a pulse of 89. Temperature 100. T-max 101 degrees. She is 96% on 50% FIO2. General description is a middle aged female lying in bed in no distress. No tachypnea or accessory muscles of respiration use. HEENT: Examination shows pallor. The patient is orally intubated ( ) oral cavity. NECK: Trachea is central. No thyromegaly. LUNGS: Unlabored breathing. Coarse breath sounds bilaterally. No wheeze. HEART: S1, S2 regular rate and rhythm. ABDOMEN: Soft, no tenderness. No guarding or rigidity. EXTREMITIES: No edema of the feet. Examination of the skin, no rash or mass palpable. NEUROLOGICALLY: Could not be complete because the patient is sedated on the vent. LABS: Hemoglobin 10.1, white count 8.6 with a BUN 9, creatinine 0.59. Electrolytes have been normal. Liver enzymes normal. Blood culture with MRSA. Sputum cultures so far ( ) respiratory georgie. The patient did have a repeat x-ray showing stable bibasilar opacities. DIAGNOSTIC IMPRESSION AND PLAN: Patient with MRSA bacteremia with source possible pneumonia, however, an endovascular source cannot be entirely excluded in a patient who does have history of drug use. It is not very clear if the patient used any IV drugs. The patients abdomen is currently soft on clinical examination. No definite cellulitis has been noticed. No other clinical focus of infection. PLAN: 1. Blood culture will be repeated to make sure there is no evidence of any persistent bacteremia which if it is the case, ( ) recommending an echocardiogram and SHAMEKA follow if the echo is negative. 2. The patient will be continued on Vancomycin, to cover for MRSA bacteremia. Zosyn to cover for the ( )pneumonia, however, sputum culture will be repeated. Discontinue Levaquin. 3. Will follow up on clinical condition and cultures to further adjust medication if needed. Thank you for this consultation. We will follow this patient along with you. VASQUEZ
--- NOTE | 2016-10-07 23:36 | P.PN ---
Subjective This patient is a 46-year-old female who is evaluated today in the intensive care unit. She was seen in neurology consultation yesterday for drug overdose and obtundation and remains intubated on the ventilator. Pulmonary medicine is following the patient closely. She remains sedated on low dose Diprivan at this time. The patient was admitted with possible drug overdose. She was treated with Narcan initially and transferred to the emergency room. She was found to have evidence of positive drug screen for opiates, try cyclic antidepressants, cocaine, and marijuana. Poison control was contacted in the ER. Patient remains intubated on the ventilator today in the ICU. Attempts were made today to try and wean her off of Diprivan but she was unable to tolerate this. Pulmonary medicine is following her condition closely in the ICU. She becomes extremely tachycardic with heart rates in the 100. Further weaning attempts will be made tomorrow. She did undergo a computed tomography scan of the brain yesterday which was negative for any acute changes. We will plan to get an EEG today for further assessment of her overall mental status. Patient has been unable to wean off of Diprivan today. She remains on 75 mics of IV Diprivan. They are going to attempt to wean again tomorrow. We reviewed her routine EEG which was done today which reveals severe slowing suggesting a severe encephalopathy. We will need to continue close monitoring of her condition in the ICU. The patient does not show significant improvement in her overall mental status today. Would continue weaning parameters as per pulmonary medicine. Case was discussed today over the telephone with the power of junior web developer for this patient who was her daughter Sadaf. She was updated on her mother's overall neurological status and condition at this time. Poison control is monitoring the patient as she had excessive amount of baclofen on board. Hopefully this has been eliminated from her system by this time. The daughter has been made power of junior web developer and will meet with other family members on regarding long-term management of her case. We will obtain a repeat computed tomography scan of the brain tomorrow as well as a follow-up EEG on for further assessment. The daughter is inclined to move towards comfort care measures if she shows no improvement. She has discussed these details today with the audiovisual librarian as well. We will continue to monitor progress closely in intensive care unit. Overall prognosis at this time remains very guarded. We will update the daughter on regarding the test results. Her overall prognosis at this time remains very guarded. Objective - Vital Signs Vital signs: Vital Signs Temp 100.5 F H 10/07/16 20:00 Pulse 90 10/07/16 23:00 Resp 23 10/07/16 23:00 BP 123/68 10/07/16 23:00 Pulse Ox 96 10/07/16 23:00 Intake & Output 10/07/16 10/07/16 10/08/16 06:59 18:59 06:59 Intake Total 2207.325 2842.000 699.8 Output Total 3045 2101 735 Balance -837.675 741.000 -35.2 Weight 84.2 kg Intake: IV 1425 1250 450.0 Piperacillin-Tazobactam 3 50 50 50.0 .375 gm In Dextrose/Water 1 50ml.bag @ 12.5 mls/hr IVPB Q8H [facility] Rx#: [id number] Sodium Chloride 0.45% 1, 1125 1200 400 000 ml @ 100 mls/hr IV . Q10H [facility] Rx#:[id number] Vancomycin 1,500 mg In 250 Sodium Chloride 0.9% 250 ml @ 125 mls/hr IVPB Q12H [facility] Rx#:[id number] Intake, IV Titration 937.939 1297.000 97.8 Amount Potassium Chloride 10 meq 200 In Water For Injection 1 100ml.bag @ 100 mls/hr IVPB Q1H [facility] Rx#: [id number] Propofol 1,000 mg In 100 326.325 300.000 97.8 ml @ Titrate IV .Q0M [facility] Rx#:[id number] Vancomycin 1,500 mg In 500 Sodium Chloride 0.9% 250 ml @ 125 mls/hr IVPB Q8H [facility] Rx#:[id number] Tube Feeding 456 532 152 Other 60 Output: Urine 3045 2100 735 Stool 1 Other: Voiding Method Indwelling Catheter Indwelling Catheter Indwelling Catheter # Bowel Movements 1 1 - Exam Physical examination: PHYSICAL EXAMINATION: Patient is resting comfortably in bed. Patient is intubated on the ventilator in the ICU. VITAL SIGNS: Blood pressure is [123/68]. Heart rate is [90]. Respiration is [23] . Temperature is [100.5]. HEENT: Head is atraumatic, neck is supple, there were no carotid bruits. CHEST: Lungs are clear to auscultation and percussion. CARDIAC: S1, S2 normal rate and rhythm. There is no murmur. ABDOMEN: Soft and nontender. Bowel sounds are present. EXTREMITIES: There is no pedal edema. Peripheral pulses are present. Neurological examination: Patient remains intubated on the ventilator in the intensive care unit. Her neurological examination is unchanged from yesterday. She continues to show evidence of a diffuse encephalopathy. - Labs CBC & Chem 7: 10/07/16 07:20 10/07/16 07:20 Labs: Abnormal Lab Results - Last 24 Hours (Table) 10/07/16 10/07/16 10/07/16 Range/Units 05:26 06:29 07:20 RBC 3.40 L (3.80-5.40) m/uL Hgb 10.3 L (11.4-16.0) gm/dL Hct 30.8 L (34.0-46.0) % Lymphocytes # 0.8 L (1.0-4.8) k/uL ABG pH 7.54 H (7.35-7.45) ABG pCO2 25 L (35-45) mmHg ABG pO2 68 L (83-108) mmHg Chloride (98-107) mmol/L POC Glucose (mg/dL) 105 H (75-99) mg/dL Calcium (8.4-10.2) mg/dL Total Protein (6.3-8.2) g/dL Albumin (3.5-5.0) g/dL 10/07/16 10/07/16 10/07/16 Range/Units 07:20 11:53 18:40 RBC (3.80-5.40) m/uL Hgb (11.4-16.0) gm/dL Hct (34.0-46.0) % Lymphocytes # (1.0-4.8) k/uL ABG pH (7.35-7.45) ABG pCO2 (35-45) mmHg ABG pO2 (83-108) mmHg Chloride 111 H (98-107) mmol/L POC Glucose (mg/dL) 100 H 101 H (75-99) mg/dL Calcium 8.0 L (8.4-10.2) mg/dL Total Protein 5.4 L (6.3-8.2) g/dL Albumin 2.8 L (3.5-5.0) g/dL Microbiology - Last 24 Hours (Table) 10/06/16 14:45 Blood Culture - Preliminary Blood No Growth after 24 hours Assessment and Plan (1) Acute metabolic encephalopathy Status: Acute Code(s): G93.41 - METABOLIC ENCEPHALOPATHY (2) Acute and chronic respiratory failure with hypoxia Status: Acute Code(s): J96.21 - ACUTE AND CHRONIC RESPIRATORY FAILURE WITH HYPOXIA (3) Aspiration pneumonia Status: Acute Code(s): J69.0 - PNEUMONITIS DUE TO INHALATION OF FOOD AND VOMIT (4) Drug overdose Status: Acute Code(s): T50.901A - POISONING BY UNSP DRUG/MEDS/BIOL SUBST, ACCIDENTAL, INIT Plan: This patient is a 46-year-old female who was admitted to the intensive care unit with possible drug overdose. She remains intubated on the ventilator today. Attempts to wean her off of the Diprivan failed today and attempts will be made again tomorrow. She underwent computed tomography scan of the brain which is negative for any acute changes. She continues to show evidence of a diffuse metabolic encephalopathy. We will obtain an EEG today for further evaluation. The EEG was reviewed today and reveals severe slowing consistent with a severe diffuse encephalopathy. The patient remains on 75 mics of Diprivan. We will need to continue to try weaning parameters for this patient over the next 24 hours. This patient's overall neurological findings were discussed at length today with the patient's daughter Ms. Talavera who is now her power of junior web developer. We have updated her on all test results and she would like a repeat EEG done for further assessment in terms of long-term prognosis. We will plan to get a repeat computed tomography scan of the brain tomorrow as well. We will update her on these test results on . We will continue to follow her closely in the intensive care unit. This patient overall prognosis at this time remains very guarded.
[2016-10-08 00:07] LABS: Glucose,Whole Blood 111 mg/dL (75-99)
[2016-10-08] MEDS: VANCOMYCIN 1,500 MG in SODIUM CHLORIDE 0.9% 250 ML IVPB SCH (01:20)
[2016-10-08] MEDS: PROPOFOL 1,000 MG/100 ML VIAL IV SCH ×8 (01:21→21:16)
[2016-10-08] MEDS: HEPARIN SODIUM,PORCINE 5,000 UNIT/ML 1 ML VIAL SQ SCH ×3 (01:21→17:19)
[2016-10-08] MEDS: LORazepam 2 MG/ML SYRINGE IV PRN ×6 (02:58→21:38)
[2016-10-08 03:04] LABS: Basophils % (A) 1 %; CH 30.3; CHCM 33.5; Eosinophils # (A) 0.3 k/uL (0-0.7); Eosinophils % (A) 3 %; HCT 29.5 % (34.0-46.0); HDW 3.08; HGB 9.9 gm/dL (11.4-16.0); INR 1.1 (<1.2); Luc # (Auto) 0.24; Luc % (Auto) 3; Lymphocytes # (A) 1.6 k/uL (1.0-4.8); Lymphocytes % (A) 17 %; MCH 30.3 pg (25.0-35.0); MCHC 33.4 g/dL (31.0-37.0); MCV 90.7 fL (80.0-100.0); Monocytes # (A) 0.7 k/uL (0-1.0); Monocytes % (A) 8 %; Neutrophils # (A) 6.2 k/uL (1.3-7.7); Neutrophils % (A) 69 %; Prothrombin Time 10.6 sec (9.0-12.0); RBC 3.25 m/uL (3.80-5.40); RDW 13.9 % (11.5-15.5); WBC 9.1 k/uL (3.8-10.6); WBC (Perox) 9.12
[2016-10-08 03:08] LABS: ALT 26 U/L (9-52); AST 15 U/L (14-36); Alkaline Phosphatase 66 U/L (38-126); Anion Gap 6 mmol/L; Blood Urea Nitrogen 11 mg/dL (7-17); Calcium 8.1 mg/dL (8.4-10.2); Carbon Dioxide 24 mmol/L (22-30); Chloride 110 mmol/L (98-107); Glucose 98 mg/dL (74-99); Magnesium 1.9 mg/dL (1.6-2.3); Non-African American GFR(MDRD) >60 (>60 ml/min/1.73 sqM); Potassium 3.6 mmol/L (3.5-5.1); Sodium 140 mmol/L (137-145); Total Bilirubin 0.4 mg/dL (0.2-1.3); Total Protein 5.2 g/dL (6.3-8.2)
--- NOTE | 2016-10-08 03:56 | XR ---
History: Reason: Decrease O2 saturation Exam: XR CXR 1 VIEW Comparison: 10/07/2016 at 06:31 FINDINGS: Endotracheal tube, right IJ line and nasogastric tube tip at the location of the GE junction and side port in the distal esophagus again noted. Interval improved aeration of the right base. There is increase in the left base retrocardiac collapse and silhouetting of the left hemidiaphragm. Possible small left pleural effusion again seen. The cardiac size appears not significantly changed. IMPRESSION: Interval improved aeration at the right base with some mild atelectasis suggested. Interval increase in left base atelectasis, less likely pneumonia, aspiration. Small left pleural effusion again suggested. Tubes and lines appear unchanged as above.
[2016-10-08] MEDS: PIPERACILLIN-TAZOBACTAM 3.375 GM in DEXTROSE/WATER 1 50ML.BAG IVPB SCH ×3 (03:59→21:18)
[2016-10-08 04:14] LABS: ABG Base Excess -1.3 mmol/L; ABG HCO3 21 mmol/L (21-25); ABG Oxygen Saturation 89.9 % (94-97); ABG PCO2 22 mmHg (35-45); ABG PH 7.58 (7.35-7.45); ABG PO2 47 mmHg (83-108); ABG TCO2 21 mmol/L (19-24)
[2016-10-08] MEDS ORDERED: RX INFO: IV CONTRAST WAS GIVEN 1 EACH MISC MISCELLANE PRN (05:55)
[2016-10-08 06:39] LABS: Glucose,Whole Blood 122 mg/dL (75-99)
[2016-10-08] MEDS ORDERED: VANCOMYCIN TROUGH DUE 1 EACH MISC MISCELLANE ONE (07:15)
[2016-10-08] MEDS: IPRATROPIUM-ALBUTEROL 3 ML NEB INHALATION PRN ×4 (07:51→19:31)
[2016-10-08] MEDS ORDERED: Potassium Replacement Protocol 1 EACH MISC MISCELLANE PRN (07:57)
[2016-10-08 08:34] LABS: ABG PCO2 28 mmHg (35-45); ABG PH 7.51 (7.35-7.45); ABG PO2 75 mmHg (83-108)
[2016-10-08 08:35] LABS: ABG Base Excess -0.8 mmol/L; ABG HCO3 22 mmol/L (21-25); ABG TCO2 23 mmol/L (19-24)
--- NOTE | 2016-10-08 08:41 | XR ---
EXAMINATION TYPE: XR chest 1V DATE OF EXAM: 10/08/2016 HISTORY: atelectasis. REFERENCE: Previous study dated 10/08/2016. FINDINGS: There has been a previous ACDF of the lower cervical spine. The patient is ET tube and NG tube remain in place, unchanged in appearance. There is a worsening right-sided effusion. There is a smaller left effusion. There is bibasilar airsp maria isabel disease either representing atelectasis or pneumonia. IMPRESSION: 1. WORSENING RIGHT-SIDED EFFUSION. 2. CONTINUING BIBASILAR AIRSPACE DISEASE. 3. STABLE LEFT EFFUSION.
[2016-10-08] MEDS: CHLORHEXIDINE GLUCONATE 15 ML CUP MUCOUS MEM SCH ×2 (08:56→21:19)
[2016-10-08] MEDS: POTASSIUM CHLORIDE 10 MEQ in WATER FOR INJECTION 1 100ML.BAG IVPB SCH ×2 (08:56→11:30)
[2016-10-08] MEDS: FAMOTIDINE 20 MG/2 ML VIAL IV SCH ×2 (08:56→21:19)
[2016-10-08 08:57] LABS: CH 30.4; CHCM 33.8; HCT 28.6 % (34.0-46.0); HDW 3.03; HGB 9.9 gm/dL (11.4-16.0); MCH 31.4 pg (25.0-35.0); MCHC 34.7 g/dL (31.0-37.0); MCV 90.4 fL (80.0-100.0); Mean Platelet Volume 7.2; RBC 3.16 m/uL (3.80-5.40); RDW 14.3 % (11.5-15.5); WBC 13.1 k/uL (3.8-10.6)
[2016-10-08 09:10] LABS: Anion Gap 8 mmol/L; Blood Urea Nitrogen 11 mg/dL (7-17); Calcium 7.8 mg/dL (8.4-10.2); Carbon Dioxide 24 mmol/L (22-30); Chloride 109 mmol/L (98-107); Glucose 105 mg/dL (74-99); Magnesium 1.8 mg/dL (1.6-2.3); Non-African American GFR(MDRD) >60 (>60 ml/min/1.73 sqM); Phosphorous 3.4 mg/dL (2.5-4.5); Potassium 3.7 mmol/L (3.5-5.1); Sodium 141 mmol/L (137-145)
[2016-10-08] MEDS ORDERED: FUROSEMIDE 10 MG/ML 4 ML VIAL IV STA (11:25)
[2016-10-08] MEDS: SODIUM CHLORIDE 0.45% 1,000 ML IV SCH ×2 (11:28→14:09)
--- NOTE | 2016-10-08 12:21 | PN ---
She gave a sedation holiday today which the propofol was completely turned off. Patient opened her eyes completely, however, the patient would not track or purpose in her movements. She did move lower extremities on command but noted she was restless in bed, asynchronous with mechanical ventilations, tachypneic, tachycardiac. She was placed back on sedation. She has a severe widespread diffuse disturbance of cerebral function on EEG. Follow up EEG will be done. Vitals, vent settings intensivists notes are all evaluated. Right lower lobe pneumonia on chest x-ray, stable. Temp 100, pulse 85, respirations 20. Blood pressure 100-110/72, pulse ox 96% on room air. The patient is on vancomycin and Zosyn. HEART: S1/S2 without any murmurs, rubs or gallops. ABDOMEN: Soft. No hepatosplenomegaly. EXTREMITIES: No edema. 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 Pupils equal, round, react to light and accommodation. Hemoglobin is 10.3, white count 8.6. ASSESSMENT: 1. Acute hypoxemic respiratory failure. 2. Aspiration pneumonia, right lower lobe. 3. Severe sepsis, septic shockl. 4. Drug overdose. 5. Encephalopathy. 6. Hypotension. 7. Polysubstance drug abuse. 8. Await repeat EEG. Will be maintained on current respiratory Levophed for hypotension, IV antibiotics, continue updraft treatments, repeat chest x-ray, GI and DVT prophylaxis. Prognosis extremely guarded.; ICU time 30 minutes. MTDD
[2016-10-08] MEDS ORDERED: HYDROmorphone 1 MG/ML 1 ML SYRINGE IVP PRN (12:27)
[2016-10-08] MEDS ORDERED: Magnesium Replacement Protocol 1 EACH MISC MISCELLANE PRN (12:46)
[2016-10-08 13:04] LABS: Glucose,Whole Blood 119 mg/dL (75-99)
[2016-10-08] MEDS ORDERED: IV VANCOMYCIN PER PHARMACY 1 EACH MISC MISCELLANE PRN (13:35)
[2016-10-08] MEDS: MAGNESIUM SULFATE-D5W PMX 1 GM in DEXTROSE/WATER 1 100ML.BAG IVPB SCH ×2 (14:08→15:13)
--- NOTE | 2016-10-08 15:29 | P.PN ---
Subjective Principal diagnosis: This is a 46-year-old female patient being seen, examined and evaluated today in the intensive care unit. This patient presented to the emergency room on via EMS for overdose. Apparently the patient was at home and her roommate found her unresponsive around multiple bottles of pills, therefore the roommate forced her to vomit before EMS arrival. When EMS arrived they did no there was pill fragments in her vomit. EMS did give the patient Narcan with minimal improvement of her symptoms. It is unclear what medications the patient did consume however there is speculation that it was morphine, gabapentin as well as baclofen. The patient's urine drug screen was positive for opiates, tricyclic antidepressants, cocaine and marijuana. Poison control has been contacted and they have been assisting in the case as well. Upon examination the patient is in sync with mechanical ventilation, propofol on for sedation. Ventilator settings are assist control with a rate of 14, tidal volume 400, FiO2 of 50%, and a PEEP of 5. She has had blood pressures systolically 90s and average, she has not required vasopressors at this time. Patient's chest x-ray from this morning has been reviewed and does reveal that there is a new air space consolidation in the right lower lobe which may reflect atelectasis infiltrate and/or effusion. The patient also underwent a sedation holiday this morning her propofol was off for approximately 60 minutes. The patient was able to move all 4 extremities she did have a cough and a gag reflex, she was thrashing in the bed however she never opened her eyes , never followed commands and her respiratory rate was in the 40s, therefore she was put back on assist control mode. Currently there is no family listed in the chart, she has no power of securities attorney or next of kin that we are aware of, we will look to get anymore information from the roommate that found her. Of note, according the the timeline of when the patient ingested the pills and vomited untill the roommate called EMS was a 12 hour span that the patient was "passed out". It is unclear if the patient woke up and took more pills in between vomiting the pills up the first time, untill she found unresponsive 12 hours later. 03/06/17, patient seen and evaluated and examined remains intermittently hypotensive in spite of aggressive fluid resuscitation attempts were A-line has been unsuccessful patient will need a central line main somewhat comatose in spite of weaning the propofol drip and neurology consultation is being obtained. Care plan discussed with the poison control as well but does condition is related to baclofen patient mental status however remains marginal she becomes anxious and agitated when propofol is being tapered down her chest x -ray from today is reviewed she has a dense infiltrate in the right lower lobe she is tolerating every feed very well been on DVT and peptic ulcer disease prophylaxis as well , I have discussed at length with the with the family present at bedside including daughter and sister, about the care plan and prognosis proceed with a central line placement for lites and try to keep magnesium over 2-3 and potassium over 4 calcium as well must see orders for detail. Patient remains on full ventilatory support current vent settings are assist control rate of 14 tidal volume of 400. 5 of PEEP and FiO2 down to 50% 10/05/16, patient seen and evaluated examined in the Rounds care plan discussed with the family at length, critical care time spent 35 minutes patient remains intubated on full respirator support currently she is on assist control rate of 14 breathing about 2750% oxygen 400 tidal volume and 5 of PEEP and on tube feed tolerating very well, attempts were done to see been off the propofol which was low down to 30 mics however patient did not open her eyes because very anxious and agitated respiratory rate went all the way up into mid 30s and 40s becomes extremely tachycardic with heart rate in 100s, at that time patient sedation was resumed and was given additional doses of Ativan reviewed the neurology recommendation and computed tomography scan of the head Patient seen and evaluated examined multiple times today patient remains very hypoxic requiring 100% oxygen with 10 of PEEP, patient started desaturating earlier on 3:30 in the morning with sats dropped down into 70% at that time a stat chest x-ray and blood gas were performed which revealed CVA hypoxia hyperventilation chest x-ray revealed interstitial edema borderline cardiomegaly and a small left-sided pleural effusion and right-sided pneumonia remains overall stable no pneumothorax was seen at d-dimer and BNP was ordered d -dimer was found to be elevated patient is being scheduled for a spiral computed tomography scan of the chest to rule out pulmonary embolism, however patient remains marginal with intermittent desaturation computed tomography scan of the chest couldn't be performed neurology has recommended a computed tomography scan of the head which is also pending. Patient to be a no code at this time. Objective - Vital Signs Vital signs: Vital Signs Temp 98 F 10/08/16 04:00 Pulse 90 10/08/16 15:00 Resp 28 H 10/08/16 15:00 BP 90/50 10/08/16 15:00 Pulse Ox 96 10/08/16 15:00 Intake & Output 10/07/16 10/08/16 10/08/16 18:59 06:59 18:59 Intake Total 2842.000 2278.843 2043.688 Output Total 2101 1860 2325 Balance 741.000 418.843 -281.312 Weight 81.8 kg 81.8 kg Intake: IV 1250 1150.0 950 Piperacillin-Tazobactam 3 50 100.0 50 .375 gm In Dextrose/Water 1 50ml.bag @ 12.5 mls/hr IVPB Q8H [facility] Rx#: [id number] Sodium Chloride 0.45% 1, 1200 1050 900 000 ml @ 100 mls/hr IV . Q10H [facility] Rx#:[id number] Intake, IV Titration 1000.000 634.843 691.688 Amount Magnesium Sulfate-D5w Pmx 200 1 gm In Dextrose/Water 1 100ml.bag @ 100 mls/hr IVPB Q1H [facility] Rx#: [id number] Potassium Chloride 10 meq 200 200 In Water For Injection 1 100ml.bag @ 100 mls/hr IVPB Q1H [facility] Rx#: [id number] Propofol 1,000 mg In 100 300.000 384.843 291.688 ml @ Titrate IV .Q0M [facility] Rx#:[id number] Vancomycin 1,500 mg In 500 250 Sodium Chloride 0.9% 250 ml @ 125 mls/hr IVPB Q8H [facility] Rx#:[id number] Tube Feeding 532 494 342 Other 60 60 Output: Urine 2100 1860 2325 Stool 1 Other: Voiding Method Indwelling Catheter Indwelling Catheter Indwelling Catheter # Bowel Movements 1 - Exam GENERAL EXAM: On mechanical ventilation with propofol for sedation, he will fed those being adjusted due to hyponatremia patient remains on half normal saline HEAD: Normocephalic. EYES: Or reaction of pupils, equal size. NOSE: Clear with pink turbinates. THROAT: No erythema or exudates. hypoactive cough and gag reflex NECK: No masses, no JVD, triple-lumen site is intact on the right neck. CHEST: No chest wall deformity. LUNGS: Equal air entry noted to be coarse with no crackles, wheeze, rhonchi or dullness. Bases diminished coarse breath sounds are present especially on the right base CVS: S1 and S2 normal with no audible mumurs, regular rhythm. ABDOMEN: No hepatosplenomegaly, normal bowel sounds, no guarding or rigidity. EXTREMITIES: trace edema noted, pedal pulses palpable. SKIN: No rashes CENTRAL NERVOUS SYSTEM: On mechanical ventilation with propofol for sedation, withdraws to pain - Labs CBC & Chem 7: 10/08/16 08:45 10/08/16 08:45 Labs: Abnormal Lab Results - Last 24 Hours (Table) 10/07/16 10/07/16 10/08/16 Range/Units 18:40 23:56 02:45 WBC (3.8-10.6) k/uL RBC (3.80-5.40) m/uL Hgb (11.4-16.0) gm/dL Hct (34.0-46.0) % D-Dimer (<0.60) mg/L FEU ABG pH (7.35-7.45) ABG pCO2 (35-45) mmHg ABG pO2 (83-108) mmHg ABG O2 Saturation (94-97) % Chloride 110 H (98-107) mmol/L Glucose (74-99) mg/dL POC Glucose (mg/dL) 101 H 111 H (75-99) mg/dL Calcium 8.1 L (8.4-10.2) mg/dL Total Protein 5.2 L (6.3-8.2) g/dL Albumin 2.6 L (3.5-5.0) g/dL Vancomycin Trough ug/mL 10/08/16 10/08/16 10/08/16 Range/Units 02:45 03:10 03:40 WBC (3.8-10.6) k/uL RBC 3.25 L (3.80-5.40) m/uL Hgb 9.9 L (11.4-16.0) gm/dL Hct 29.5 L (34.0-46.0) % D-Dimer 2.68 H (<0.60) mg/L FEU ABG pH 7.58 H (7.35-7.45) ABG pCO2 22 L (35-45) mmHg ABG pO2 47 L (83-108) mmHg ABG O2 Saturation 89.9 L (94-97) % Chloride (98-107) mmol/L Glucose (74-99) mg/dL POC Glucose (mg/dL) (75-99) mg/dL Calcium (8.4-10.2) mg/dL Total Protein (6.3-8.2) g/dL Albumin (3.5-5.0) g/dL Vancomycin Trough ug/mL 10/08/16 10/08/16 10/08/16 Range/Units 06:28 08:16 08:45 WBC (3.8-10.6) k/uL RBC (3.80-5.40) m/uL Hgb (11.4-16.0) gm/dL Hct (34.0-46.0) % D-Dimer (<0.60) mg/L FEU ABG pH 7.51 H (7.35-7.45) ABG pCO2 28 L (35-45) mmHg ABG pO2 75 L (83-108) mmHg ABG O2 Saturation (94-97) % Chloride (98-107) mmol/L Glucose (74-99) mg/dL POC Glucose (mg/dL) 122 H (75-99) mg/dL Calcium (8.4-10.2) mg/dL Total Protein (6.3-8.2) g/dL Albumin (3.5-5.0) g/dL Vancomycin Trough 38.7 H* ug/mL 10/08/16 10/08/16 10/08/16 Range/Units 08:45 08:45 12:44 WBC 13.1 H (3.8-10.6) k/uL RBC 3.16 L (3.80-5.40) m/uL Hgb 9.9 L (11.4-16.0) gm/dL Hct 28.6 L (34.0-46.0) % D-Dimer (<0.60) mg/L FEU ABG pH (7.35-7.45) ABG pCO2 (35-45) mmHg ABG pO2 (83-108) mmHg ABG O2 Saturation (94-97) % Chloride 109 H (98-107) mmol/L Glucose 105 H (74-99) mg/dL POC Glucose (mg/dL) 119 H (75-99) mg/dL Calcium 7.8 L (8.4-10.2) mg/dL Total Protein (6.3-8.2) g/dL Albumin (3.5-5.0) g/dL Vancomycin Trough ug/mL Microbiology - Last 24 Hours (Table) 10/07/16 16:53 Gram Stain - Preliminary Sputum Sputum Culture - Preliminary 10/06/16 14:45 Blood Culture - Preliminary Blood No Growth after 24 hours Assessment and Plan Plan: Assessment Acute hypoxic respiratory failure, slowly worsening with extensive desaturation now patient is on 100% oxygen with PEEP of 10 patient's remains extremely anxious and agitated but remains nonverbal and noncommunicative, her computed tomography scan of the chest and computed tomography scan of the head is pending , patient is scheduled for another follow-up EEG for tomorrow Aspiration pneumonia right lower lobe, likely related to MRSA which is isolated in the blood, sputum is also growing gram-positive cocci overall appears to be MRSA pneumonia and bacteremia Severe Sepsis, with septic shock, now off of U for drip Drug overdose, unclear if it was intentional or unintentional Hypotension Encephalopathy likely medication related with comatose state, anoxic injury to the brain, as significant flattening of the brain with as been noted on multiple EEGs Drug overdose and substance use Plan Medications have been reviewed and will be continued as ordered. We will stay in close contact with poison control and appreciate recommendations from them. She will remain on mechanical ventilation today. Continue with sedation holidays daily. May start Levo to maintain MAP of 65 for hypotension. Continue with IV antibiotics. Continue with pulmonary hygiene, coughing and deep breathing exercises, and supportive care. Supplemental oxygen to maintain oxygen saturations of 92% or better. Continue nebulizer treatments. Sputum and blood cultures pending. Monitor and replace electrolytes per protocol. Repeat chest x-ray and labs in the morning. Adjustment of fluid maintenance and continuation tube feed, GI and DVT prophylaxis. We will continue to monitor labs /results and adjust treatment as necessary. Further recommendations pending. Care plan discussed with the family at length. Neuro consultation reviewed, patient is not ready for weaning extubation, prognosis is very guarded him a patient appears to have a component of anoxic injury to the brain Care time spent over 60 minutes
[2016-10-08 19:03] LABS: Glucose,Whole Blood 125 mg/dL (75-99)
--- NOTE | 2016-10-08 22:19 | P.PN ---
Subjective This patient is a 46-year-old female who is evaluated today in the intensive care unit. She was seen in neurology consultation yesterday for drug overdose and obtundation and remains intubated on the ventilator. Pulmonary medicine is following the patient closely. She remains sedated on low dose Diprivan at this time. The patient was admitted with possible drug overdose. She was treated with Narcan initially and transferred to the emergency room. She was found to have evidence of positive drug screen for opiates, try cyclic antidepressants, cocaine, and marijuana. Poison control was contacted in the ER. Patient remains intubated on the ventilator today in the ICU. Attempts were made today to try and wean her off of Diprivan but she was unable to tolerate this. Pulmonary medicine is following her condition closely in the ICU. She becomes extremely tachycardic with heart rates in the 100. Further weaning attempts will be made tomorrow. She did undergo a computed tomography scan of the brain yesterday which was negative for any acute changes. We will plan to get an EEG today for further assessment of her overall mental status. Patient has been unable to wean off of Diprivan today. She remains on 75 mics of IV Diprivan. They are going to attempt to wean again tomorrow. We reviewed her routine EEG which was done today which reveals severe slowing suggesting a severe encephalopathy. We will need to continue close monitoring of her condition in the ICU. The patient does not show significant improvement in her overall mental status today. Would continue weaning parameters as per pulmonary medicine. Case was discussed today over the telephone with the power of defense attorney for this patient who was her daughter Sadaf. She was updated on her mother's overall neurological status and condition at this time. Poison control is monitoring the patient as she had excessive amount of baclofen on board. Hopefully this has been eliminated from her system by this time. The daughter has been made power of defense attorney and will meet with other family members on regarding long-term management of her case. We will obtain a repeat computed tomography scan of the brain tomorrow as well as a follow-up EEG on for further assessment. The daughter is inclined to move towards comfort care measures if she shows no improvement. Patient was unable to have computed tomography scan of the brain today as she was hemodynamically unstable as per pulmonary medicine. She has discussed these details today with the patient ombudsperson as well. We will continue to monitor progress closely in intensive care unit. Overall prognosis at this time remains very guarded. We will update the daughter on regarding the test results. Her overall prognosis at this time remains very guarded. We will continue close neurological follow-up with the patient in the ICU. Objective - Vital Signs Vital signs: Vital Signs Temp 98 F 10/08/16 04:00 Pulse 90 10/08/16 19:44 Resp 19 10/08/16 19:00 BP 102/62 10/08/16 19:00 Pulse Ox 99 10/08/16 19:00 Intake & Output 10/08/16 10/08/16 10/09/16 06:59 18:59 06:59 Intake Total 2278.843 2525.188 138 Output Total 1860 2675 125 Balance 418.843 -149.812 13 Weight 81.8 kg 81.8 kg Intake: IV 1150.0 1250 Piperacillin-Tazobactam 3 100.0 50 .375 gm In Dextrose/Water 1 50ml.bag @ 12.5 mls/hr IVPB Q8H [facility] Rx#: [id number] Sodium Chloride 0.45% 1, 1050 1200 000 ml @ 100 mls/hr IV . Q10H [facility] Rx#:[id number] Intake, IV Titration 634.843 797.188 Amount Magnesium Sulfate-D5w Pmx 200 1 gm In Dextrose/Water 1 100ml.bag @ 100 mls/hr IVPB Q1H [facility] Rx#: [id number] Norepinephrin 16 mg-0.9% 5.5 Ns Pmx 16 mg In 250 ml @ Titrate IV .Q0M [facility] Rx#: [id number] Potassium Chloride 10 meq 200 In Water For Injection 1 100ml.bag @ 100 mls/hr IVPB Q1H [facility] Rx#: [id number] Propofol 1,000 mg In 100 384.843 391.688 ml @ Titrate IV .Q0M [facility] Rx#:[id number] Vancomycin 1,500 mg In 250 Sodium Chloride 0.9% 250 ml @ 125 mls/hr IVPB Q8H [facility] Rx#:[id number] Tube Feeding 494 418 38 Lipid 100 Sodium Chloride 0.45% 1, 100 000 ml @ 100 mls/hr IV . Q10H [facility] Rx#:[id number] Other 60 Output: Urine 1620 8251 125 Other: Voiding Method Indwelling Catheter Indwelling Catheter - Exam Physical examination: PHYSICAL EXAMINATION: Patient is resting comfortably in bed. Patient is intubated on the ventilator in the ICU. VITAL SIGNS: Blood pressure is [126/75]. Heart rate is [72]. Respiration is [23] . Temperature is [100.5]. HEENT: Head is atraumatic, neck is supple, there were no carotid bruits. CHEST: Lungs are clear to auscultation and percussion. CARDIAC: S1, S2 normal rate and rhythm. There is no murmur. ABDOMEN: Soft and nontender. Bowel sounds are present. EXTREMITIES: There is no pedal edema. Peripheral pulses are present. Neurological examination: Patient remains intubated on the ventilator in the intensive care unit. Her neurological examination is unchanged from yesterday. She continues to show evidence of a diffuse encephalopathy. - Labs CBC & Chem 7: 10/08/16 08:45 10/08/16 08:45 Labs: Abnormal Lab Results - Last 24 Hours (Table) 10/07/16 10/08/16 10/08/16 Range/Units 23:56 02:45 02:45 WBC (3.8-10.6) k/uL RBC 3.25 L (3.80-5.40) m/uL Hgb 9.9 L (11.4-16.0) gm/dL Hct 29.5 L (34.0-46.0) % D-Dimer (<0.60) mg/L FEU ABG pH (7.35-7.45) ABG pCO2 (35-45) mmHg ABG pO2 (83-108) mmHg ABG O2 Saturation (94-97) % Chloride 110 H (98-107) mmol/L Glucose (74-99) mg/dL POC Glucose (mg/dL) 111 H (75-99) mg/dL Calcium 8.1 L (8.4-10.2) mg/dL Total Protein 5.2 L (6.3-8.2) g/dL Albumin 2.6 L (3.5-5.0) g/dL Vancomycin Trough ug/mL 10/08/16 10/08/16 10/08/16 Range/Units 03:10 03:40 06:28 WBC (3.8-10.6) k/uL RBC (3.80-5.40) m/uL Hgb (11.4-16.0) gm/dL Hct (34.0-46.0) % D-Dimer 2.68 H (<0.60) mg/L FEU ABG pH 7.58 H (7.35-7.45) ABG pCO2 22 L (35-45) mmHg ABG pO2 47 L (83-108) mmHg ABG O2 Saturation 89.9 L (94-97) % Chloride (98-107) mmol/L Glucose (74-99) mg/dL POC Glucose (mg/dL) 122 H (75-99) mg/dL Calcium (8.4-10.2) mg/dL Total Protein (6.3-8.2) g/dL Albumin (3.5-5.0) g/dL Vancomycin Trough ug/mL 10/08/16 10/08/16 10/08/16 Range/Units 08:16 08:45 08:45 WBC (3.8-10.6) k/uL RBC (3.80-5.40) m/uL Hgb (11.4-16.0) gm/dL Hct (34.0-46.0) % D-Dimer (<0.60) mg/L FEU ABG pH 7.51 H (7.35-7.45) ABG pCO2 28 L (35-45) mmHg ABG pO2 75 L (83-108) mmHg ABG O2 Saturation (94-97) % Chloride 109 H (98-107) mmol/L Glucose 105 H (74-99) mg/dL POC Glucose (mg/dL) (75-99) mg/dL Calcium 7.8 L (8.4-10.2) mg/dL Total Protein (6.3-8.2) g/dL Albumin (3.5-5.0) g/dL Vancomycin Trough 38.7 H* ug/mL 10/08/16 10/08/16 10/08/16 Range/Units 08:45 12:44 18:43 WBC 13.1 H (3.8-10.6) k/uL RBC 3.16 L (3.80-5.40) m/uL Hgb 9.9 L (11.4-16.0) gm/dL Hct 28.6 L (34.0-46.0) % D-Dimer (<0.60) mg/L FEU ABG pH (7.35-7.45) ABG pCO2 (35-45) mmHg ABG pO2 (83-108) mmHg ABG O2 Saturation (94-97) % Chloride (98-107) mmol/L Glucose (74-99) mg/dL POC Glucose (mg/dL) 119 H 125 H (75-99) mg/dL Calcium (8.4-10.2) mg/dL Total Protein (6.3-8.2) g/dL Albumin (3.5-5.0) g/dL Vancomycin Trough ug/mL Microbiology - Last 24 Hours (Table) 10/06/16 14:45 Blood Culture - Preliminary Blood No Growth after 48 hours 10/07/16 16:53 Gram Stain - Preliminary Sputum Sputum Culture - Preliminary Assessment and Plan (1) Acute metabolic encephalopathy Status: Acute Code(s): G93.41 - METABOLIC ENCEPHALOPATHY (2) Acute and chronic respiratory failure with hypoxia Status: Acute Code(s): J96.21 - ACUTE AND CHRONIC RESPIRATORY FAILURE WITH HYPOXIA (3) Aspiration pneumonia Status: Acute Code(s): J69.0 - PNEUMONITIS DUE TO INHALATION OF FOOD AND VOMIT (4) Drug overdose Status: Acute Code(s): T50.901A - POISONING BY UNSP DRUG/MEDS/BIOL SUBST, ACCIDENTAL, INIT Plan: This patient is a 46-year-old female who was admitted to the intensive care unit with possible drug overdose. She remains intubated on the ventilator today. Attempts to wean her off of the Diprivan failed today and attempts will be made again tomorrow. She underwent computed tomography scan of the brain which is negative for any acute changes. She continues to show evidence of a diffuse metabolic encephalopathy. We will obtain an EEG today for further evaluation. The EEG was reviewed today and reveals severe slowing consistent with a severe diffuse encephalopathy. The patient remains on 75 mics of Diprivan. We will need to continue to try weaning parameters for this patient over the next 24 hours. This patient's overall neurological findings were discussed at length today with the patient's daughter Ms. Talavera who is now her power of defense attorney. We have updated her on all test results and she would like a repeat EEG done for further assessment in terms of long-term prognosis. We will plan to get a repeat computed tomography scan of the brain tomorrow as well. We will update her on these test results on . The patient's daughter is inclined to lean towards comfort care measures for this patient that we'll await her follow-up EEG results. We will continue to follow her closely in the intensive care unit. This patient overall prognosis at this time remains very guarded.
[2016-10-08 23:58] LABS: Glucose,Whole Blood 122 mg/dL (75-99)
[2016-10-09] MEDS: PROPOFOL 1,000 MG/100 ML VIAL IV SCH ×11 (00:30→23:08)
[2016-10-09] MEDS: HEPARIN SODIUM,PORCINE 5,000 UNIT/ML 1 ML VIAL SQ SCH ×3 (01:21→16:06)
[2016-10-09] MEDS: SODIUM CHLORIDE 0.45% 1,000 ML IV SCH ×3 (01:21→22:08)
[2016-10-09] MEDS: LORazepam 2 MG/ML SYRINGE IV PRN ×6 (01:24→22:44)
[2016-10-09] MEDS: PIPERACILLIN-TAZOBACTAM 3.375 GM in DEXTROSE/WATER 1 50ML.BAG IVPB SCH ×3 (04:30→20:20)
[2016-10-09 07:12] LABS: Glucose,Whole Blood 104 mg/dL (75-99)
[2016-10-09 07:17] LABS: Basophils # (A) 0.1 k/uL (0-0.2); Basophils % (A) 1 %; CH 30.6; CHCM 33.9; Eosinophils # (A) 0.4 k/uL (0-0.7); Eosinophils % (A) 3 %; HCT 28.8 % (34.0-46.0); HDW 3.06; HGB 9.9 gm/dL (11.4-16.0); Luc % (Auto) 2; Lymphocytes # (A) 1.5 k/uL (1.0-4.8); Lymphocytes % (A) 12 %; MCH 31.2 pg (25.0-35.0); MCHC 34.5 g/dL (31.0-37.0); MCV 90.4 fL (80.0-100.0); Mean Platelet Volume 7.2; Monocytes # (A) 0.8 k/uL (0-1.0); Monocytes % (A) 6 %; Neutrophils # (A) 9.2 k/uL (1.3-7.7); Neutrophils % (A) 76 %; RBC 3.19 m/uL (3.80-5.40); WBC 12.2 k/uL (3.8-10.6); WBC (Perox) 12.82
[2016-10-09] MEDS: IPRATROPIUM-ALBUTEROL 3 ML NEB INHALATION PRN ×4 (07:22→19:40)
[2016-10-09 07:38] LABS: Anion Gap 8 mmol/L; Blood Urea Nitrogen 12 mg/dL (7-17); Calcium 7.8 mg/dL (8.4-10.2); Carbon Dioxide 27 mmol/L (22-30); Chloride 106 mmol/L (98-107); Glucose 94 mg/dL (74-99); Non-African American GFR(MDRD) >60 (>60 ml/min/1.73 sqM); Potassium 3.7 mmol/L (3.5-5.1); Sodium 141 mmol/L (137-145)
[2016-10-09] MEDS ORDERED: Potassium Replacement Protocol 1 EACH MISC MISCELLANE PRN (08:11)
[2016-10-09] MEDS ORDERED: Magnesium Replacement Protocol 1 EACH MISC MISCELLANE PRN (08:12)
[2016-10-09] MEDS: FAMOTIDINE 20 MG/2 ML VIAL IV SCH ×2 (08:40→20:26)
[2016-10-09] MEDS: CHLORHEXIDINE GLUCONATE 15 ML CUP MUCOUS MEM SCH ×2 (08:40→20:21)
[2016-10-09] MEDS: MAGNESIUM SULFATE-D5W PMX 1 GM in DEXTROSE/WATER 1 100ML.BAG IVPB SCH ×2 (08:42→10:00)
[2016-10-09] MEDS ORDERED: POTASSIUM CHLORIDE ER 20 MEQ TAB.ER PO SCH (09:00)
[2016-10-09 09:08] LABS: ABG Base Excess 1.3 mmol/L; ABG HCO3 24 mmol/L (21-25); ABG PCO2 32 mmHg (35-45); ABG PO2 81 mmHg (83-108); ABG TCO2 25 mmol/L (19-24)
--- NOTE | 2016-10-09 09:42 | XR ---
EXAMINATION TYPE: XR chest 1V portable DATE OF EXAM: 10/09/2016 CLINICAL HISTORY: Difficulty breathing progress study. TECHNIQUE: Single AP portable supine view of the chest is obtained. COMPARISON: Chest x-ray from one day earlier FINDINGS: An endotracheal tube, orogastric tube, and right internal jugular central venous catheter are all stable in appearance. Cardiac silhouette size is stable and within normal limits. There is improved aeration left lung base noted. There is persistent right basilar opacity felt to reflect small to moderate-sized right pleur al effusion associated right basilar atelectasis and/or infiltrate. No pneumothorax is seen bilateral ly. Osseous structures are intact. IMPRESSION: Persistent small to moderate-sized right pleural effusion and associated right basilar at electasis and/or infiltrate felt stable. Improving left basilar atelectasis and/or infiltrate noted.
[2016-10-09] MEDS: VANCOMYCIN 1,500 MG in SODIUM CHLORIDE 0.9% 250 ML IVPB SCH ×2 (11:20→23:06)
--- NOTE | 2016-10-09 11:53 | PN ---
SUBJECTIVE: This is a white female, hypoxemic with 100% oxygen with 10 of PEEP , desaturating last night into the 70%. Chest x-ray showed interstitial edema, chronic ( ), small pleural effusion. Spiral CT was ordered but not being able to be done as patient is unable to do it. CT of the head is also pending. She is NO CODE by her family at this time. She has possible brain damage. Repeat EEG will need to be done. Temp 98, pulse 90, respiratory 20 to 28, blood pressure is 90s/50s, O2 is 96% on 100% oxygen with 10 of PEEP. Is on broad-spectrum IV antibiotics. HEAD: Normocephalic, atraumatic. CARDIOVASCULAR: S1, S2. Lungs show diminished breath sounds on the right side. SKIN: No rashes, no abnormality, no hepatomegaly. CARDIOVASCULAR: S1, S2. White count 13.1, hemoglobin 9.9, d-dimer is elevated. ASSESSMENT: 1. Acute hypoxemic respiratory failure, desaturation, more weaning from the ventilatory. EEG is going to be done in the morning for possible encephalopathy versus brain damage. 2. Aspiration pneumonia is likely related to methicillin-resistant Staphylococcus aureus. 3. Gram-positive cocci, severe sepsis, septic shock. 4. Drug overdose. 5. Hypertension. 6. Encephalopathy. PLAN: Continue to maintain on oxygenation, IV antibiotics, broad spectrum. ( ) for hypotension. Continue with IV antibiotics ( ). Continue current medications. ICU time 30 minutes. MTDD
[2016-10-09 12:19] LABS: Glucose,Whole Blood 111 mg/dL (75-99)
[2016-10-09 14:47] LABS: Glucose,Whole Blood 109 mg/dL (75-99)
--- NOTE | 2016-10-09 15:52 | P.PN ---
Subjective his is a 46-year-old female patient being seen, examined and evaluated today in the intensive care unit. This patient presented to the emergency room on via EMS for overdose. Apparently the patient was at home and her roommate found her unresponsive around multiple bottles of pills, therefore the roommate forced her to vomit before EMS arrival. When EMS arrived they did no there was pill fragments in her vomit. EMS did give the patient Narcan with minimal improvement of her symptoms. It is unclear what medications the patient did consume however there is speculation that it was morphine, gabapentin as well as baclofen. The patient's urine drug screen was positive for opiates, tricyclic antidepressants, cocaine and marijuana. Poison control has been contacted and they have been assisting in the case as well. Upon examination the patient is in sync with mechanical ventilation, propofol on for sedation. Ventilator settings are assist control with a rate of 14, tidal volume 400, FiO2 of 50%, and a PEEP of 5. She has had blood pressures systolically 90s and average, she has not required vasopressors at this time. Patient's chest x-ray from this morning has been reviewed and does reveal that there is a new air space consolidation in the right lower lobe which may reflect atelectasis infiltrate and/or effusion. The patient also underwent a sedation holiday this morning her propofol was off for approximately 60 minutes. The patient was able to move all 4 extremities she did have a cough and a gag reflex, she was thrashing in the bed however she never opened her eyes, never followed commands and her respiratory rate was in the 40s, therefore she was put back on assist control mode. Currently there is no family listed in the chart, she has no power of design/animation instructor or next of kin that we are aware of, we will look to get anymore information from the roommate that found her. Of note, according the the timeline of when the patient ingested the pills and vomited untill the roommate called EMS was a 12 hour span that the patient was "passed out". It is unclear if the patient woke up and took more pills in between vomiting the pills up the first time, untill she found unresponsive 12 hours later. 10/04/16, patient seen and evaluated and examined remains intermittently hypotensive in spite of aggressive fluid resuscitation attempts were A-line has been unsuccessful patient will need a central line main somewhat comatose in spite of weaning the propofol drip and neurology consultation is being obtained. Care plan discussed with the poison control as well but does condition is related to baclofen patient mental status however remains marginal she becomes anxious and agitated when propofol is being tapered down her chest x -ray from today is reviewed she has a dense infiltrate in the right lower lobe she is tolerating every feed very well been on DVT and peptic ulcer disease prophylaxis as well , I have discussed at length with the with the family present at bedside including daughter and sister, about the care plan and prognosis proceed with a central line placement for lites and try to keep magnesium over 2-3 and potassium over 4 calcium as well must see orders for detail. Patient remains on full ventilatory support current vent settings are assist control rate of 14 tidal volume of 400. 5 of PEEP and FiO2 down to 50% 10/05/16, patient seen and evaluated examined in the Rounds care plan discussed with the family at length, critical care time spent 35 minutes patient remains intubated on full respirator support currently she is on assist control rate of 14 breathing about 2750% oxygen 400 tidal volume and 5 of PEEP and on tube feed tolerating very well, attempts were done to see been off the propofol which was low down to 30 mics however patient did not open her eyes because very anxious and agitated respiratory rate went all the way up into mid 30s and 40s becomes extremely tachycardic with heart rate in 100s, at that time patient sedation was resumed and was given additional doses of Ativan reviewed the neurology recommendation and computed tomography scan of the head 10/06/16. Patient seen and evaluated and examined on rounds. Patient remains intubated on full respiratory support, patient on assist control mode respiratory rate of 14 tidal volume of 400 FiO2 50% and a PEEP of 5. Patient also on ventilator prevention measures. Sedation holiday was done this morning and the patient did not tolerate this and was switched back to assist control mode. Patient did undergo an EEG this morning those results are not readily available at this time. During the patient sedation holiday this morning the patient was able to blink however was not purposeful with her movements. Chest x-ray from this morning was reviewed and shows a right basilar airspace disease , right-sided effusion, and left basilar atelectasis. Labs also reviewed. 10/07/16 patient is seen and evaluated today on rounds. A full sedation holiday was performed this morning and on the patient and the propofol was completely turned off the patient was able to open her eyes completely however the patient would not track was not purposeful in her movements, she did move all extremities just not on command patient was noted to be extremely restless in bed. Patient is asynchronous with mechanical ventilation. Patient was also noted to be severely tachypneic and tachycardic. Therefore the patient had to be switched back over to assist control mode after about 50 minutes with sedation back on board. Patient did have an EEG yesterday which shows evidence of a severe widespread diffuse disturbance in cerebral function and follow-up EEG is recommended. Patient's ventilator settings have been adjusted to assist control mode of 20, tidal volume of 450 FiO2 of 50% and a PEEP of 5. Chest x- ray reviewed from this morning and shows a stable right lower lobe pneumonia. Family is at bedside and has been updated on patient's guarded prognosis and plan of care. 10/06/16 Patient seen and evaluated examined multiple times today patient remains very hypoxic requiring 100% oxygen with 10 of PEEP, patient started desaturating earlier on 3:30 in the morning with sats dropped down into 70% at that time a stat chest x-ray and blood gas were performed which revealed CVA hypoxia hyperventilation chest x-ray revealed interstitial edema borderline cardiomegaly and a small left-sided pleural effusion and right-sided pneumonia remains overall stable no pneumothorax was seen at d-dimer and BNP was ordered d -dimer was found to be elevated patient is being scheduled for a spiral computed tomography scan of the chest to rule out pulmonary embolism, however patient remains marginal with intermittent desaturation computed tomography scan of the chest couldn't be performed neurology has recommended a computed tomography scan of the head which is also pending. Patient to be a no code at this time. 10/07/16-patient is being seen and examined today in the intensive care unit. Patient remains a no code. Neurologically the patient has remained the same. Patient did not have any hypoxic events overnight. Patient's current ventilator settings are assist control mode with a rate of 14, tidal volume of 450, FiO2 70% and a PEEP of 10. EEG was completed this morning we are currently awaiting those results. Patient will be going down for a computed tomography scan of the chest as well as the brain this afternoon. Her ALLERGY also closely following with the patient. The patient's family has been updated on the guarded prognosis as well as the plan of care. Objective - Vital Signs Vital signs: Vital Signs Temp 99.2 F 10/09/16 12:00 Pulse 87 10/09/16 14:00 Resp 25 H 10/09/16 14:00 BP 115/60 10/09/16 14:00 Pulse Ox 99 10/09/16 14:00 Intake & Output 10/08/16 10/09/16 10/09/16 18:59 06:59 18:59 Intake Total 2525.188 2656.212 4601.634 Output Total 2675 1637 1207 Balance -149.812 98.469 412.634 Weight 81.8 kg 82.6 kg Intake: IV 1250 1100 650 Piperacillin-Tazobactam 3 50 50 .375 gm In Dextrose/Water 1 50ml.bag @ 12.5 mls/hr IVPB Q8H [facility]ITH[facility] Rx#: [id number] Sodium Chloride 0.45% 1, 1200 1100 600 000 ml @ 100 mls/hr IV . Q10H [facility]ITH[facility] Rx#:[id number] Intake, IV Titration 797.188 345.469 749.634 Amount Magnesium Sulfate-D5w Pmx 200 1 gm In Dextrose/Water 1 100ml.bag @ 100 mls/hr IVPB Q1H [facility] Rx#: [id number] Magnesium Sulfate-D5w Pmx 200 1 gm In Dextrose/Water 1 100ml.bag @ 100 mls/hr IVPB Q1H [facility]ITH[facility] Rx#: [id number] Norepinephrin 16 mg-0.9% 5.5 24.441 Ns Pmx 16 mg In 250 ml @ Titrate IV .Q0M [facility] Rx#: [id number] Potassium Chloride 10 meq 200 In Water For Injection 1 100ml.bag @ 100 mls/hr IVPB Q1H [facility] Rx#: [id number] Propofol 1,000 mg In 100 391.688 321.028 299.634 ml @ Titrate IV .Q0M [facility] Rx#:[id number] Vancomycin 1,500 mg In 250 Sodium Chloride 0.9% 250 ml @ 125 mls/hr IVPB Q12H [facility] Rx#:[id number] Tube Feeding 418 190 190 Lipid 100 Sodium Chloride 0.45% 1, 100 000 ml @ 100 mls/hr IV . Q10H [facility]ITH[facility] Rx#:[id number] Other 60 30 Output: Urine 2675 1635 1205 Stool 2 2 Other: Voiding Method Indwelling Catheter Indwelling Catheter Indwelling Catheter - Exam GENERAL EXAM: On mechanical ventilation with propofol for sedation, HEAD: Normocephalic. EYES: Or reaction of pupils, equal size. NOSE: Clear with pink turbinates. THROAT: No erythema or exudates. hypoactive cough and gag reflex NECK: No masses, no JVD, triple-lumen site is intact on the right neck. CHEST: No chest wall deformity. LUNGS: Equal air entry noted to be coarse with no crackles, wheeze, rhonchi or dullness. Bases diminished coarse breath sounds are present especially on the right base CVS: S1 and S2 normal with no audible mumurs, regular rhythm. ABDOMEN: No hepatosplenomegaly, normal bowel sounds, no guarding or rigidity. EXTREMITIES: trace edema noted, pedal pulses palpable. SKIN: No rashes CENTRAL NERVOUS SYSTEM: On mechanical ventilation with propofol for sedation, withdraws to pain - Labs CBC & Chem 7: 10/09/16 07:03 10/09/16 07:03 Labs: Abnormal Lab Results - Last 24 Hours (Table) 10/08/16 10/08/16 10/09/16 Range/Units 18:43 23:47 06:52 WBC (3.8-10.6) k/uL RBC (3.80-5.40) m/uL Hgb (11.4-16.0) gm/dL Hct (34.0-46.0) % Neutrophils # (1.3-7.7) k/uL ABG pH (7.35-7.45) ABG pCO2 (35-45) mmHg ABG pO2 (83-108) mmHg ABG Total CO2 (19-24) mmol/L POC Glucose (mg/dL) 125 H 122 H 104 H (75-99) mg/dL Calcium (8.4-10.2) mg/dL 10/09/16 10/09/16 10/09/16 Range/Units 07:03 07:03 08:57 WBC 12.2 H (3.8-10.6) k/uL RBC 3.19 L (3.80-5.40) m/uL Hgb 9.9 L (11.4-16.0) gm/dL Hct 28.8 L (34.0-46.0) % Neutrophils # 9.2 H (1.3-7.7) k/uL ABG pH 7.50 H (7.35-7.45) ABG pCO2 32 L (35-45) mmHg ABG pO2 81 L (83-108) mmHg ABG Total CO2 25 H (19-24) mmol/L POC Glucose (mg/dL) (75-99) mg/dL Calcium 7.8 L (8.4-10.2) mg/dL 10/09/16 10/09/16 Range/Units 12:00 14:27 WBC (3.8-10.6) k/uL RBC (3.80-5.40) m/uL Hgb (11.4-16.0) gm/dL Hct (34.0-46.0) % Neutrophils # (1.3-7.7) k/uL ABG pH (7.35-7.45) ABG pCO2 (35-45) mmHg ABG pO2 (83-108) mmHg ABG Total CO2 (19-24) mmol/L POC Glucose (mg/dL) 111 H 109 H (75-99) mg/dL Calcium (8.4-10.2) mg/dL Microbiology - Last 24 Hours (Table) 10/06/16 14:45 Blood Culture - Preliminary Blood No Growth after 48 hours Assessment and Plan Plan: Assessment Acute hypoxic respiratory failure Aspiration pneumonia, right lower lobe, likely related to MRSA which is isolated in the blood, sputum is also growing gram-positive cocci overall appears to be MRSA pneumonia and bacteremia Severe Sepsis with septic shock Drug overdose, unclear if it was intentional or unintentional Hypotension Encephalopathy likely related to medication with comatose state Drug overdose and polysubstance abuse Plan Ventilator settings adjusted to assist control mode of 14, tidal volume of 400, FiO2 60% and a PEEP of 10. We will see how the patient tolerates these new setting changes and adjust as necessary. Patient will be going down for computed tomography scan of the brain as well as a CTA of the chest. Awaiting new EEG results. Family at bedside during around him have been updated on patient's guarded prognosis as well as plan of care at length. All questions have been answered. Neurology on consult and appreciate recommendations. Medications have been reviewed and will be continued as ordered. We will stay in close contact with poison control and appreciate recommendations from them. She will remain on mechanical ventilation today. Continue with sedation holidays daily. May start Levo to maintain MAP of 65 for hypotension. Continue with IV antibiotics. Continue with pulmonary hygiene, coughing and deep breathing exercises, and supportive care. Supplemental oxygen to maintain oxygen saturations of 92% or better. Continue nebulizer treatments. Infectious disease consult it for positive cultures. Replete 1 cultures have been obtained. Monitor and replace electrolytes per protocol. Repeat chest x-ray and labs in the morning. GI and DVT prophylaxis. We will continue to monitor labs/results and adjust treatment as necessary. Further recommendations pending. I performed an examination of the patient and discussed their management with the nurse practitioner. I have reviewed the nurse practitioner's note and agree with the documented findings and plan of care.
--- NOTE | 2016-10-09 17:51 | CT ---
EXAMINATION TYPE: CT chest angio for PE DATE OF EXAM: 10/09/2016 COMPARISON: Chest x-ray same date HISTORY: Decreased O2 saturation. Unresponsive. Drug overdose. CT DLP: 599.00 mGycm Automated exposure control for dose reduction was used. CONTRAST: CT Chest for pulmonary embolism performed with with IV Contrast, patient injected with 59 mL of Omnip aque 350. FINDINGS: LUNGS: The patient is intubated, endotracheal tube is in appropriate position within the trachea. NG tube is also present and courses to the level of the stomach. Basilar consolidation is present bilate rally right lower lobe greater than left, right middle lobe also shows atelectasis. Small effusions a re present right greater than left. Some low-attenuation within the posterior right lung could reflec t focus of pneumonia. There is evidence of old granulomatous disease. There is likely perihilar pneum onitis on the right versus pulmonary edema. MEDIASTINUM: There is satisfactory enhancement of the pulmonary artery and its branches, there is no CT evidence for pulmonary embolism. There are no greater than 1 cm mediastinal lymph nodes. Prevascu lar nodes are present however. Some calcified mediastinal nodes are present. There is some right [place] r nodes which aren't enlarged. No pericardial effusion is seen. AORTA: No additional significant abnormality is seen. OTHER: Right jugular central venous catheter extends into the right atrium. The spleen is enlarged. IMPRESSION: Findings compatible with patient's history is suggestive of aspiration pneumonia, there may be atelec tasis, pulmonary edema, alveolitis. Old granulomatous disease.
--- NOTE | 2016-10-09 17:58 | CT ---
EXAMINATION TYPE: CT brain wo con DATE OF EXAM: 10/09/2016 COMPARISON: Prior CT brain 10/04/2016 HISTORY: Decreased O2 saturation. Unresponsive. Drug overdose. CT DLP: 1082.00 mGycm. Automated Exposure Control for Dose Reduction was Utilized. TECHNIQUE: CT scan of the head is performed without contrast. FINDINGS: There is no acute intracranial hemorrhage, mass effect, or midline shift identified. The ventricles and sulci are within normal limits in size. The globes are intact and the visualized sin uses are clear. IMPRESSION: No acute intracranial hemorrhage, mass effect, or midline shift is seen.
[2016-10-09 19:05] LABS: Glucose,Whole Blood 112 mg/dL (75-99)
--- NOTE | 2016-10-09 22:01 | P.PN ---
Subjective This patient is a 46-year-old female who is evaluated today in the intensive care unit. She was seen in neurology consultation yesterday for drug overdose and obtundation and remains intubated on the ventilator. Pulmonary medicine is following the patient closely. She remains sedated on low dose Diprivan at this time. The patient was admitted with possible drug overdose. She was treated with Narcan initially and transferred to the emergency room. She was found to have evidence of positive drug screen for opiates, try cyclic antidepressants, cocaine, and marijuana. Poison control was contacted in the ER. Patient remains intubated on the ventilator today in the ICU. Attempts were made today to try and wean her off of Diprivan but she was unable to tolerate this. Pulmonary medicine is following her condition closely in the ICU. She becomes extremely tachycardic with heart rates in the 100. Further weaning attempts will be made tomorrow. She did undergo a computed tomography scan of the brain yesterday which was negative for any acute changes. We will plan to get an EEG today for further assessment of her overall mental status. Patient has been unable to wean off of Diprivan today. She remains on 75 mics of IV Diprivan. They are going to attempt to wean again tomorrow. We reviewed her routine EEG which was done today which reveals severe slowing suggesting a severe encephalopathy. We will need to continue close monitoring of her condition in the ICU. The patient does not show significant improvement in her overall mental status today. Would continue weaning parameters as per pulmonary medicine. Case was discussed today over the telephone with the power of supervisor cellars for this patient who was her daughter Sadaf. She was updated on her mother's overall neurological status and condition at this time. Poison control is monitoring the patient as she had excessive amount of baclofen on board. Hopefully this has been eliminated from her system by this time. The daughter has been made power of supervisor cellars and will meet with other family members on regarding long-term management of her case. We did obtain a repeat computed tomography scan of the brain today as well as a follow-up EEG for further assessment. The daughter is inclined to move towards comfort care measures if she shows no improvement. Her CAT scan of the brain came back negative for any acute intracranial hemorrhage, mass effect, or midline shift. This is the second computed tomography scan that we have done. Patient also underwent follow-up EEG today which was reviewed. EEG continues to show severe slowing with no significant change compared to her previous EEG that was done on 10/06/2016. We did contact the patient's daughter Ms. Talavera on the phone today. We updated her on all of the test results that were done today. The daughter who is power of supervisor cellars wishes to move onto comfort care measures. We 've instructed her to contact the ICU nursing staff to convey her wishes. The daughter is fully aware of her tests results in her guarded condition in the ICU. We will continue to monitor progress closely in intensive care unit. Her overall prognosis at this time remains very guarded. We will continue close neurological follow-up with the patient in the ICU. Objective - Vital Signs Vital signs: Vital Signs Temp 99.0 F 10/09/16 16:00 Pulse 86 10/09/16 16:00 Resp 20 10/09/16 16:00 BP 74/51 10/09/16 16:00 Pulse Ox 97 10/09/16 16:00 Intake & Output 10/08/16 10/09/16 10/09/16 18:59 06:59 18:59 Intake Total 2525.188 1860.246 9643.311 Output Total 2675 1637 2157 Balance -149.812 98.469 172.311 Weight 81.8 kg 82.6 kg Intake: IV 1250 1100 1100 Piperacillin-Tazobactam 3 50 100 .375 gm In Dextrose/Water 1 50ml.bag @ 12.5 mls/hr IVPB Q8H [facility]ITHA Rx#: [id number] Sodium Chloride 0.45% 1, 1200 1100 1000 000 ml @ 100 mls/hr IV . Q10H [facility]ITHA Rx#:[id number] Intake, IV Titration 797.188 345.469 797.311 Amount Magnesium Sulfate-D5w Pmx 200 1 gm In Dextrose/Water 1 100ml.bag @ 100 mls/hr IVPB Q1H [facility]ITH[facility] Rx#: [id number] Magnesium Sulfate-D5w Pmx 200 1 gm In Dextrose/Water 1 100ml.bag @ 100 mls/hr IVPB Q1H [facility]ITHA Rx#: [id number] Norepinephrin 16 mg-0.9% 5.5 24.441 Ns Pmx 16 mg In 250 ml @ Titrate IV .Q0M [facility]ITHA Rx#: [id number] Potassium Chloride 10 meq 200 In Water For Injection 1 100ml.bag @ 100 mls/hr IVPB Q1H [facility] Rx#: [id number] Propofol 1,000 mg In 100 391.688 321.028 347.311 ml @ Titrate IV .Q0M [facility]ITHA Rx#:[id number] Vancomycin 1,500 mg In 250 Sodium Chloride 0.9% 250 ml @ 125 mls/hr IVPB Q12H [facility]ITHA Rx#:[id number] Tube Feeding 418 190 372 Lipid 100 Sodium Chloride 0.45% 1, 100 000 ml @ 100 mls/hr IV . Q10H [facility]ITHA Rx#:[id number] Other 60 60 Output: Urine 2675 1635 2155 Stool 2 2 Other: Voiding Method Indwelling Catheter Indwelling Catheter Indwelling Catheter - Labs CBC & Chem 7: 10/09/16 07:03 10/09/16 07:03 Labs: Abnormal Lab Results - Last 24 Hours (Table) 10/08/16 10/08/16 10/09/16 Range/Units 18:43 23:47 06:52 WBC (3.8-10.6) k/uL RBC (3.80-5.40) m/uL Hgb (11.4-16.0) gm/dL Hct (34.0-46.0) % Neutrophils # (1.3-7.7) k/uL ABG pH (7.35-7.45) ABG pCO2 (35-45) mmHg ABG pO2 (83-108) mmHg ABG Total CO2 (19-24) mmol/L POC Glucose (mg/dL) 125 H 122 H 104 H (75-99) mg/dL Calcium (8.4-10.2) mg/dL 10/09/16 10/09/16 10/09/16 Range/Units 07:03 07:03 08:57 WBC 12.2 H (3.8-10.6) k/uL RBC 3.19 L (3.80-5.40) m/uL Hgb 9.9 L (11.4-16.0) gm/dL Hct 28.8 L (34.0-46.0) % Neutrophils # 9.2 H (1.3-7.7) k/uL ABG pH 7.50 H (7.35-7.45) ABG pCO2 32 L (35-45) mmHg ABG pO2 81 L (83-108) mmHg ABG Total CO2 25 H (19-24) mmol/L POC Glucose (mg/dL) (75-99) mg/dL Calcium 7.8 L (8.4-10.2) mg/dL 10/09/16 10/09/16 Range/Units 12:00 14:27 WBC (3.8-10.6) k/uL RBC (3.80-5.40) m/uL Hgb (11.4-16.0) gm/dL Hct (34.0-46.0) % Neutrophils # (1.3-7.7) k/uL ABG pH (7.35-7.45) ABG pCO2 (35-45) mmHg ABG pO2 (83-108) mmHg ABG Total CO2 (19-24) mmol/L POC Glucose (mg/dL) 111 H 109 H (75-99) mg/dL Calcium (8.4-10.2) mg/dL Microbiology - Last 24 Hours (Table) 10/06/16 14:45 Blood Culture - Preliminary Blood No Growth after 48 hours Assessment and Plan (1) Acute metabolic encephalopathy Status: Acute Code(s): G93.41 - METABOLIC ENCEPHALOPATHY (2) Acute and chronic respiratory failure with hypoxia Status: Acute Code(s): J96.21 - ACUTE AND CHRONIC RESPIRATORY FAILURE WITH HYPOXIA (3) Aspiration pneumonia Status: Acute Code(s): J69.0 - PNEUMONITIS DUE TO INHALATION OF FOOD AND VOMIT (4) Drug overdose Status: Acute Code(s): T50.901A - POISONING BY UNSP DRUG/MEDS/BIOL SUBST, ACCIDENTAL, INIT Plan: This patient is a 46-year-old female who was admitted to the intensive care unit with possible drug overdose. She remains intubated on the ventilator today. Attempts to wean her off of the Diprivan failed today and attempts will be made again tomorrow. She underwent computed tomography scan of the brain which is negative for any acute changes. She continues to show evidence of a diffuse metabolic encephalopathy. We will obtain an EEG today for further evaluation. The EEG was reviewed today and reveals severe slowing consistent with a severe diffuse encephalopathy. The patient remains on 75 mics of Diprivan. We will need to continue to try weaning parameters for this patient over the next 24 hours. This patient's overall neurological findings were discussed at length today with the patient's daughter Ms. Talavera who is now her power of supervisor cellars. We have updated her on all test results and she would like a repeat EEG done for further assessment in terms of long-term prognosis. The patient did complete a repeat computed tomography scan of the brain today. This CAT scan was negative for any acute changes. Patient also had a repeat EEG performed today which was reviewed. EEG continues to show severe slowing of the EEG background and is unchanged from the previous EEG study done on 10/06. The patient neurologically is not showing any significant change in her neurological status in the ICU. We did contact the patient's power of supervisor cellars who is her daughter Sadaf. We talked to Sadaf over the phone and updated her on the results of the CAT scan and EEG that were both done today. Sadaf is now requesting that the patient be made comfort care measures. We've instructed her to contact the nursing staff to convey her wishes. We will continue close neurological follow-up with this patient in the ICU. Her overall prognosis at this time remains very guarded.
[2016-10-10 00:20] LABS: Glucose,Whole Blood 114 mg/dL (75-99)
[2016-10-10] MEDS: HEPARIN SODIUM,PORCINE 5,000 UNIT/ML 1 ML VIAL SQ SCH ×2 (00:23→09:17)
[2016-10-10] MEDS: PROPOFOL 1,000 MG/100 ML VIAL IV SCH ×4 (01:58→12:51)
[2016-10-10] MEDS: PIPERACILLIN-TAZOBACTAM 3.375 GM in DEXTROSE/WATER 1 50ML.BAG IVPB SCH ×2 (03:56→12:52)
[2016-10-10 05:35] LABS: Basophils # (A) 0.1 k/uL (0-0.2); Basophils % (A) 1 %; CH 30.5; CHCM 33.6; Eosinophils # (A) 0.3 k/uL (0-0.7); Eosinophils % (A) 4 %; HDW 3.05; HGB 9.6 gm/dL (11.4-16.0); Luc # (Auto) 0.23; Luc % (Auto) 2; Lymphocytes # (A) 1.4 k/uL (1.0-4.8); Lymphocytes % (A) 15 %; MCH 30.2 pg (25.0-35.0); MCHC 33.2 g/dL (31.0-37.0); MCV 90.9 fL (80.0-100.0); Mean Platelet Volume 7.2; Monocytes # (A) 0.6 k/uL (0-1.0); Monocytes % (A) 6 %; Neutrophils % (A) 73 %; RBC 3.19 m/uL (3.80-5.40); RDW 14.3 % (11.5-15.5); WBC 9.6 k/uL (3.8-10.6); WBC (Perox) 10.05
[2016-10-10 06:01] LABS: Anion Gap 8 mmol/L; Blood Urea Nitrogen 12 mg/dL (7-17); Calcium 8.1 mg/dL (8.4-10.2); Carbon Dioxide 26 mmol/L (22-30); Chloride 107 mmol/L (98-107); Glucose 102 mg/dL (74-99); Non-African American GFR(MDRD) >60 (>60 ml/min/1.73 sqM); Potassium 3.7 mmol/L (3.5-5.1); Sodium 141 mmol/L (137-145)
--- NOTE | 2016-10-10 06:24 | EEG ---
DATE OF SERVICE: 10/09/2016 ELECTROENCEPHALOGRAPHIC EXAMINATION REPORT INDICATION FOR EXAMINATION: This patient is a 46-year-old female who was admitted to the intensive care unit following drug overdose. Patient remains intubated on the ventilator and sedated. This is a follow-up EEG for comparison. Age: 46. EEG FINDINGS: A routine 21 channel awake, digital EEG recording was accomplished utilizing the 10-20 international system with bipolar and referential montages. The background activity in the most alert, resting state consists of a low to medium amplitude, fairly well developed and well sustained 4-5 Hz activity over the posterior head regions. This posterior rhythm attenuates to eye opening. There is a small amount of low amplitude 18-20 Hz beta activity seen maximally over the anterior head regions. Muscle and movement artifact was observed on a few occasions during the tracing. Hyperventilation was not performed. Photic stimulation at flash frequencies of 2 -30 Hz produced a good symmetrical occipital driving response. No epileptiform discharges were seen. IMPRESSION: This EEG gives evidence of a severe widespread diffuse disturbance in cerebral function. The EEG failed to reveal any focal, lateralized or epileptiform abnormalities. Compared to a previous EEG performed on 10/06/2016, there is some improvement in the EEG background. Clinical correlation is recommended . [facility]
[2016-10-10] MEDS ORDERED: Potassium Replacement Protocol 1 EACH MISC MISCELLANE PRN (06:30)
[2016-10-10] MEDS ORDERED: POTASSIUM CHLORIDE ER 20 MEQ TAB.ER PO SCH (07:00)
[2016-10-10] MEDS: IPRATROPIUM-ALBUTEROL 3 ML NEB INHALATION PRN (07:37)
[2016-10-10] MEDS ORDERED: POTASSIUM CHLORIDE ORAL LIQUID 40 MEQ/30 ML CUP NG-TUBE SCH (08:00)
[2016-10-10] MEDS: LORazepam 2 MG/ML SYRINGE IV PRN (08:04)
[2016-10-10] MEDS: SODIUM CHLORIDE 0.45% 1,000 ML IV SCH (08:07)
[2016-10-10] MEDS: CHLORHEXIDINE GLUCONATE 15 ML CUP MUCOUS MEM SCH (09:17)
[2016-10-10] MEDS: FAMOTIDINE 20 MG/2 ML VIAL IV SCH (09:17)
[2016-10-10 09:54] VITALS: BMI 29.1
--- NOTE | 2016-10-10 11:01 | PN ---
SUBJECTIVE: 46 -year-old white female who is possibly going to be made comfort care tomorrow. EEG repeat is pending. CT scan has not been able to be repeated. She had a chest CTA today to rule out any significant blood clot in her lungs. CT scan of the chest shows old scar tissue. Possible pneumonia of aspiration nature. Brain CT that was performed today shows no intracranial hemorrhage, mass effect or midline shift. ASSESSMENT: 1. Metabolic encephalopathy secondary to aspiration pneumonia. 2. Septic shock. 3. Polysubstance abuse. 4. Acute drug overdose. 5. Possible not following commands. ( ) possible some brain injury, suspicious EEG. Daughter has power of regulator pin inserter. Prognosis guarded. Possible comfort care tomorrow. ASSESSMENT AND PLAN: 1. Acute metabolic encephalopathy. 2. Acute on chronic respiratory failure. 3. Hypoxemia. 4. Aspiration pneumonia. 5. Drug overdose. 6. Repeat EEG. 7. Wean ventilator care. 8. Further orders. We will await power of regulator pin inserter, daughter Sadaf. ICU time: 40 minutes. [facility]
--- NOTE | 2016-10-10 11:44 | PN ---
DATE OF SERVICE: 10/09/16 REASON FOR FOLLOW UP: MRSA bacteremia, aspiration pneumonia. INTERVAL HISTORY: The patient overall feels better and has improved. Temperature has been recorded as 99.1. The patient is hemodynamically stable. Still having problem with mental status. ( ) for which an EEG has been repeated. Tolerating tube feeds. On examination, blood pressure 130/75, pulse 89, temperature 99.1, she is 96% on 80% FIO2. General description is a middle age female lying in the bed, in no distress. Respiratory: Unlabored breathing. Coarse breath sounds at the base bilaterally. Heart: S1, S2 regular rate and rhythm. Abdomen soft, no tenderness. Labs: Hemoglobin is 9.9, white count 12.2 with a BUN of 12. Creatinine 0.54. Repeat blood cultures so far negative. Sputum culture currently pending. DIAGNOSTIC IMPRESSION AND PLAN: Patient with MRSA bacteremia. Follow-up blood cultures so far negative with a question of possible source of pneumonia in a patient who was found to be unresponsive with drug overdose ( ) likely component of aspiration. The patient overall feeling better, has been improving. She will continue on Vanco and Zosyn at this point. Awaiting EEG and further neurological workup. Overall prognosis remains extremely guarded. Continue supportive care. [facility]
[2016-10-10 12:20] VITALS: BP 106/67; PULSE 82; RESP 33; TEMP 98.2
[2016-10-10] MEDS: VANCOMYCIN 1,500 MG in SODIUM CHLORIDE 0.9% 250 ML IVPB SCH (12:52)
--- NOTE | 2016-10-10 13:08 | P.PN ---
Subjective his is a 46-year-old female patient being seen, examined and evaluated today in the intensive care unit. This patient presented to the emergency room on via EMS for overdose. Apparently the patient was at home and her roommate found her unresponsive around multiple bottles of pills, therefore the roommate forced her to vomit before EMS arrival. When EMS arrived they did no there was pill fragments in her vomit. EMS did give the patient Narcan with minimal improvement of her symptoms. It is unclear what medications the patient did consume however there is speculation that it was morphine, gabapentin as well as baclofen. The patient's urine drug screen was positive for opiates, tricyclic antidepressants, cocaine and marijuana. Poison control has been contacted and they have been assisting in the case as well. Upon examination the patient is in sync with mechanical ventilation, propofol on for sedation. Ventilator settings are assist control with a rate of 14, tidal volume 400, FiO2 of 50%, and a PEEP of 5. She has had blood pressures systolically 90s and average, she has not required vasopressors at this time. Patient's chest x-ray from this morning has been reviewed and does reveal that there is a new air space consolidation in the right lower lobe which may reflect atelectasis infiltrate and/or effusion. The patient also underwent a sedation holiday this morning her propofol was off for approximately 60 minutes. The patient was able to move all 4 extremities she did have a cough and a gag reflex, she was thrashing in the bed however she never opened her eyes, never followed commands and her respiratory rate was in the 40s, therefore she was put back on assist control mode. Currently there is no family listed in the chart, she has no power of banking attorney or next of kin that we are aware of, we will look to get anymore information from the roommate that found her. Of note, according the the timeline of when the patient ingested the pills and vomited untill the roommate called EMS was a 12 hour span that the patient was "passed out". It is unclear if the patient woke up and took more pills in between vomiting the pills up the first time, untill she found unresponsive 12 hours later. 10/04/16, patient seen and evaluated and examined remains intermittently hypotensive in spite of aggressive fluid resuscitation attempts were A-line has been unsuccessful patient will need a central line main somewhat comatose in spite of weaning the propofol drip and neurology consultation is being obtained. Care plan discussed with the poison control as well but does condition is related to baclofen patient mental status however remains marginal she becomes anxious and agitated when propofol is being tapered down her chest x -ray from today is reviewed she has a dense infiltrate in the right lower lobe she is tolerating every feed very well been on DVT and peptic ulcer disease prophylaxis as well , I have discussed at length with the with the family present at bedside including daughter and sister, about the care plan and prognosis proceed with a central line placement for lites and try to keep magnesium over 2-3 and potassium over 4 calcium as well must see orders for detail. Patient remains on full ventilatory support current vent settings are assist control rate of 14 tidal volume of 400. 5 of PEEP and FiO2 down to 50% 10/05/16, patient seen and evaluated examined in the Rounds care plan discussed with the family at length, critical care time spent 35 minutes patient remains intubated on full respirator support currently she is on assist control rate of 14 breathing about 2750% oxygen 400 tidal volume and 5 of PEEP and on tube feed tolerating very well, attempts were done to see been off the propofol which was low down to 30 mics however patient did not open her eyes because very anxious and agitated respiratory rate went all the way up into mid 30s and 40s becomes extremely tachycardic with heart rate in 100s, at that time patient sedation was resumed and was given additional doses of Ativan reviewed the neurology recommendation and computed tomography scan of the head 10/06/16. Patient seen and evaluated and examined on rounds. Patient remains intubated on full respiratory support, patient on assist control mode respiratory rate of 14 tidal volume of 400 FiO2 50% and a PEEP of 5. Patient also on ventilator prevention measures. Sedation holiday was done this morning and the patient did not tolerate this and was switched back to assist control mode. Patient did undergo an EEG this morning those results are not readily available at this time. During the patient sedation holiday this morning the patient was able to blink however was not purposeful with her movements. Chest x-ray from this morning was reviewed and shows a right basilar airspace disease , right-sided effusion, and left basilar atelectasis. Labs also reviewed. 10/07/16 patient is seen and evaluated today on rounds. A full sedation holiday was performed this morning and on the patient and the propofol was completely turned off the patient was able to open her eyes completely however the patient would not track was not purposeful in her movements, she did move all extremities just not on command patient was noted to be extremely restless in bed. Patient is asynchronous with mechanical ventilation. Patient was also noted to be severely tachypneic and tachycardic. Therefore the patient had to be switched back over to assist control mode after about 50 minutes with sedation back on board. Patient did have an EEG yesterday which shows evidence of a severe widespread diffuse disturbance in cerebral function and follow-up EEG is recommended. Patient's ventilator settings have been adjusted to assist control mode of 20, tidal volume of 450 FiO2 of 50% and a PEEP of 5. Chest x- ray reviewed from this morning and shows a stable right lower lobe pneumonia. Family is at bedside and has been updated on patient's guarded prognosis and plan of care. 10/06/16 Patient seen and evaluated examined multiple times today patient remains very hypoxic requiring 100% oxygen with 10 of PEEP, patient started desaturating earlier on 3:30 in the morning with sats dropped down into 70% at that time a stat chest x-ray and blood gas were performed which revealed CVA hypoxia hyperventilation chest x-ray revealed interstitial edema borderline cardiomegaly and a small left-sided pleural effusion and right-sided pneumonia remains overall stable no pneumothorax was seen at d-dimer and BNP was ordered d -dimer was found to be elevated patient is being scheduled for a spiral computed tomography scan of the chest to rule out pulmonary embolism, however patient remains marginal with intermittent desaturation computed tomography scan of the chest couldn't be performed neurology has recommended a computed tomography scan of the head which is also pending. Patient to be a no code at this time. 10/07/16-patient is being seen and examined today in the intensive care unit. Patient remains a no code. Neurologically the patient has remained the same. Patient did not have any hypoxic events overnight. Patient's current ventilator settings are assist control mode with a rate of 14, tidal volume of 450, FiO2 70% and a PEEP of 10. EEG was completed this morning we are currently awaiting those results. Patient will be going down for a computed tomography scan of the chest as well as the brain this afternoon. Her ALLERGY also closely following with the patient. The patient's family has been updated on the guarded prognosis as well as the plan of care. 10/08/16- patient is being seen and examined today in the intensive care unit. Patient remains a no code. Neurologically the patient has remained the same with no improvement. Patient did undergo a repeat EEG yesterday which did show severe widespread diffuse disturbance in cerebral function. CT of the brain from yesterday shows no acute intracranial hemorrhage, mass effect or midline shift. Patient also underwent a CTA yesterday which shows findings compatible with patient's history of aspiration pneumonia, there may be atelectasis, pulmonary edema, alveolitis. Patient did require vasopressors overnight. Extensive conversation with the patient's legal guardians which are her daughters about the patient's poor prognosis. It is their wish to withdraw care due to the patient's poor prognosis. They would like to proceed with comfort care measures and hospice. The process has been discussed at length with the family and all questions have been answered. Objective - Vital Signs Vital signs: Vital Signs Temp 98.2 F 10/10/16 12:00 Pulse 82 10/10/16 12:00 Resp 33 H 10/10/16 12:00 BP 106/67 10/10/16 12:00 Pulse Ox 90 L 10/10/16 12:00 Intake & Output 10/09/16 10/10/16 10/10/16 18:59 06:59 18:59 Intake Total 2817.712 1774.189 782 Output Total 2592 1335 1150 Balance 225.712 439.189 -368 Weight 79.5 kg 79.5 kg Intake: IV 1400 1100 600 Piperacillin-Tazobactam 3 100 .375 gm In Dextrose/Water 1 50ml.bag @ 12.5 mls/hr IVPB Q8H [facility] Rx#: [id number] Sodium Chloride 0.45% 1, 1300 1100 600 000 ml @ 100 mls/hr IV . Q10H [facility] Rx#:[id number] Intake, IV Titration 851.712 522.189 Amount Magnesium Sulfate-D5w Pmx 200 1 gm In Dextrose/Water 1 100ml.bag @ 100 mls/hr IVPB Q1H [facility] Rx#: [id number] Propofol 1,000 mg In 100 401.712 397.189 ml @ Titrate IV .Q0M [facility] Rx#:[id number] Vancomycin 1,500 mg In 250 125 Sodium Chloride 0.9% 250 ml @ 125 mls/hr IVPB Q12H [facility] Rx#:[id number] Tube Feeding 476 152 152 Other 90 30 Output: Urine 2590 1335 1150 Stool 2 Other: Voiding Method Indwelling Catheter Indwelling Catheter Indwelling Catheter - Exam GENERAL EXAM: On mechanical ventilation with propofol for sedation, HEAD: Normocephalic. EYES: Or reaction of pupils, equal size. NOSE: Clear with pink turbinates. THROAT: No erythema or exudates. hypoactive cough and gag reflex NECK: No masses, no JVD, triple-lumen site is intact on the right neck. CHEST: No chest wall deformity. LUNGS: Equal air entry noted to be coarse with no crackles, wheeze, rhonchi or dullness. Bases diminished coarse breath sounds are present especially on the right base CVS: S1 and S2 normal with no audible mumurs, regular rhythm. ABDOMEN: No hepatosplenomegaly, normal bowel sounds, no guarding or rigidity. EXTREMITIES: trace edema noted, pedal pulses palpable. SKIN: No rashes CENTRAL NERVOUS SYSTEM: On mechanical ventilation with propofol for sedation, withdraws to pain - Labs CBC & Chem 7: 10/10/16 05:25 10/10/16 05:25 Labs: Abnormal Lab Results - Last 24 Hours (Table) 10/09/16 10/09/16 10/10/16 Range/Units 14:27 18:45 00:18 RBC (3.80-5.40) m/uL Hgb (11.4-16.0) gm/dL Hct (34.0-46.0) % Plt Count (150-450) k/uL Creatinine (0.52-1.04) mg/dL Glucose (74-99) mg/dL POC Glucose (mg/dL) 109 H 112 H 114 H (75-99) mg/dL Calcium (8.4-10.2) mg/dL 10/10/16 10/10/16 Range/Units 05:25 05:25 RBC 3.19 L (3.80-5.40) m/uL Hgb 9.6 L (11.4-16.0) gm/dL Hct 29.0 L (34.0-46.0) % Plt Count 455 H (150-450) k/uL Creatinine 0.50 L (0.52-1.04) mg/dL Glucose 102 H (74-99) mg/dL POC Glucose (mg/dL) (75-99) mg/dL Calcium 8.1 L (8.4-10.2) mg/dL Microbiology - Last 24 Hours (Table) 10/07/16 16:53 Gram Stain - Final Sputum Sputum Culture - Final Saima albicans 10/06/16 14:45 Blood Culture - Preliminary Blood No Growth after 72 hours Assessment and Plan Plan: Assessment Acute hypoxic respiratory failure Aspiration pneumonia, right lower lobe, likely related to MRSA which is isolated in the blood, sputum is also growing gram-positive cocci overall appears to be MRSA pneumonia and bacteremia Severe Sepsis with septic shock Drug overdose, unclear if it was intentional or unintentional Hypotension Encephalopathy likely related to medication with comatose state Drug overdose and polysubstance abuse Plan Family at bedside during around him have been updated on patient's guarded prognosis as well as plan of care at length. All questions have been answered. The patient with like to go forth with comfort care measures and withdrawal's care at this time. We will consult hospice. Neurology on consult and appreciate recommendations. Medications have been reviewed and will be continued as ordered. We will stay in close contact with poison control and appreciate recommendations from them. Continue with IV antibiotics. Continue with pulmonary hygiene, coughing and deep breathing exercises, and supportive care. Supplemental oxygen to maintain oxygen saturations of 92% or better. Continue nebulizer treatments. Infectious disease consult it for positive cultures. Replete 1 cultures have been obtained. Monitor and replace electrolytes per protocol. Repeat chest x-ray and labs in the morning. GI and DVT prophylaxis. We will sign off on this patient, the patient is going forth with comfort care and hospice measures who will take over care at this time. I performed an examination of the patient and discussed their management with the nurse practitioner. I have reviewed the nurse practitioner's note and agree with the documented findings and plan of care.
[2016-10-11] MEDS ORDERED: VANCOMYCIN TROUGH DUE 1 EACH MISC MISCELLANE ONE (10:00)
== END 2016-10-10 12:58 | disposition hospice, inpatient (51) | DRG 917 ==
LOC: EC 17:45 → 6ICU 19:30
PROVIDERS: ADMIT Family Medicine; ATTEND Family Medicine
PROC: 5A1955Z Respiratory Ventilation, Greater than 96 Consecutive Hours (ICD-10-PCS; principal; 2016-10-03)
PROC: 0BH17EZ Insertion of Endotracheal Airway into Trachea, Via Natural or Artificial Opening (ICD-10-PCS; 2016-10-03)
PROC: 05HM33Z Insertion of Infusion Device into Right Internal Jugular Vein, Percutaneous Approach (ICD-10-PCS; 2016-10-04)
DX: T50.901A Poisoning by unspecified drugs, medicaments and biological substances, accidental (unintentional), initial encounter (principal); A41.02 Sepsis due to Methicillin resistant Staphylococcus aureus; J96.21 Acute and chronic respiratory failure with hypoxia; R65.21 Severe sepsis with septic shock; R40.20 Unspecified coma; J69.0 Pneumonitis due to inhalation of food and vomit; G93.41 Metabolic encephalopathy; J15.212 Pneumonia due to Methicillin resistant Staphylococcus aureus; G93.1 Anoxic brain damage, not elsewhere classified; E87.2 Acidosis; J98.11 Atelectasis; E03.9 Hypothyroidism, unspecified; M54.9 Dorsalgia, unspecified; G89.4 Chronic pain syndrome; I10 Essential (primary) hypertension; F32.9 Major depressive disorder, single episode, unspecified; F19.10 Other psychoactive substance abuse, uncomplicated; Z79.899 Other long term (current) drug therapy; Z88.6 Allergy status to analgesic agent
CPT/HCPCS: 36415; 36600; 70450; 71010; 71275; 80048; 80053; 80202; 80306; 80320; 81001; 81025; 82140; 82550; 82553; 82805; 83520; 83605; 83735; 84100; 84132; 84484; 85025; 85027; 85379; 85610; 87040; 87070; 87077; 87186; 87205; 93005; 94002; 94003; 94640; 95816

== ENCOUNTER 2016-10-10 13:05 | Inpatient (IN) | payer MEDICAID ==
[2016-10-10] MEDS ORDERED: LORazepam 2 MG/ML SYRINGE IV PRN (13:26)
[2016-10-10] MEDS ORDERED: LORazepam 2 MG/ML SYRINGE IV STA (13:27)
[2016-10-10] MEDS ORDERED: MORPHINE SULFATE 2 MG/ML SYRINGE IVP ONE (13:28)
[2016-10-10] MEDS ORDERED: BISACODYL 10 MG SUPP RECTAL PRN (13:29)
[2016-10-10] MEDS ORDERED: ONDANSETRON 4 MG/2 ML VIAL IVP PRN (13:30)
[2016-10-10] MEDS: SCOPOLAMINE 1.5MG/72HR PATCH TRANSDERM SCH (13:57)
[2016-10-10] MEDS: MORPHINE SULFATE (100 MG/2 ML) 100 MG in SODIUM CHLORIDE 0.9% 100 ML IV SCH ×2 (13:59→21:34)
[2016-10-10] MEDS: LORazepam 2 MG/ML SYRINGE IV PRN (15:52)
--- NOTE | 2016-10-10 21:49 | PN ---
DATE OF SERVICE: 10/10/2016 SUBJECTIVE: This is a 46-year-old white female who apparently family is thinking about making comfort care. I saw and examined her this morning. The patient remains comfortably on the ventilator. CT of the brain, CT of the chest were reviewed this morning. Vent settings were reviewed. Non Emergency Services Ambulance Driver's notes were reviewed. Family is to discuss whether this is going to be comfort care given today and the vent removed today, as there are some questions on the EEG whether there is some brain damage done and poor brain activity and poor following of commands. As you remember, she was admitted with polysubstance and drug abuse and drug overdose with aspiration pneumonia. Prognosis extremely guarded. Await family's decision. Most likely she will be made comfort care today. ICU time 30 minutes. VASQUEZ
[2016-10-11] MEDS: LORazepam 2 MG/ML SYRINGE IV PRN ×5 (02:55→21:13)
[2016-10-11] MEDS: MORPHINE SULFATE (100 MG/2 ML) 100 MG in SODIUM CHLORIDE 0.9% 100 ML IV SCH ×2 (06:48→15:45)
[2016-10-11] MEDS ORDERED: ATROPINE OPHTH SOLN 1% 5ML BTL SUBLINGUAL PRN (15:48)
[2016-10-11] MEDS: ATROPINE OPHTH SOLN 1% 5ML BTL SUBLINGUAL SCH ×2 (16:28→21:53)
[2016-10-12] MEDS: LORazepam 2 MG/ML SYRINGE IV PRN ×4 (00:04→23:42)
[2016-10-12] MEDS: MORPHINE SULFATE (100 MG/2 ML) 100 MG in SODIUM CHLORIDE 0.9% 100 ML IV SCH ×4 (00:23→23:43)
[2016-10-12] MEDS: ATROPINE OPHTH SOLN 1% 5ML BTL SUBLINGUAL SCH ×5 (00:34→23:42)
[2016-10-13] MEDS: LORazepam 2 MG/ML SYRINGE IV PRN ×4 (02:35→19:32)
[2016-10-13] MEDS: ATROPINE OPHTH SOLN 1% 5ML BTL SUBLINGUAL SCH ×4 (04:52→21:20)
[2016-10-13] MEDS: MORPHINE SULFATE (100 MG/2 ML) 100 MG in SODIUM CHLORIDE 0.9% 100 ML IV SCH ×3 (08:01→23:17)
--- NOTE | 2016-10-13 11:22 | PN ---
SUBJECTIVE: 46-year-old white female with polysubstance abuse and overdose. The patient is not improving. She can move four extremities but she does not talk. She does not focus. Her family does not want her fed, delatorre not want any vital signs taken but does want an EEG ordered. If it shows any signs of improvement they may change the treatment but right now they do not want her fed , they want no tube feeding, peripheral nutrition and they want no vital signs. She is on hospice at this time. I talked with the family 30 minutes. VASQUEZ
[2016-10-13] MEDS: SCOPOLAMINE 1.5MG/72HR PATCH TRANSDERM SCH (15:10)
[2016-10-14] MEDS: ATROPINE OPHTH SOLN 1% 5ML BTL SUBLINGUAL SCH ×3 (05:30→14:36)
--- NOTE | 2016-10-14 06:14 | EEG ---
DATE OF SERVICE: 10/13/2016 ELECTROENCEPHALOGRAPHIC EXAMINATION REPORT INDICATION FOR EXAMINATION: This patient is a 46-year-old female initially admitted to the hospital with drug overdose. Patient currently transferred for hospice care. This is a follow-up EEG for comparison. Age: 46. EEG FINDINGS: A routine 21 channel awake, digital EEG recording was accomplished utilizing the 10-20 international system with bipolar and referential montages. The background activity in the most alert, resting state consists of a low to medium amplitude, fairly well developed and well sustained 6 Hz activity over the posterior head regions. This posterior rhythm attenuates to eye opening. There is a small amount of low amplitude 18-20 Hz beta activity seen maximally over the anterior head regions. Muscle and movement artifact was observed on a few occasions during the tracing. Hyperventilation was not performed. Photic stimulation at flash frequencies of 2 -30 Hz produced a minimal occipital driving response. Towards the mid and lateral portion of the tracing, the patient does drift into spontaneous drowsiness. No epileptiform discharges were seen. IMPRESSION: This EEG is moderately abnormal in a diffuse fashion due to slowing of the EEG background. The EEG failed to reveal any focal, lateralized or epileptiform abnormalities. Compared to a previous EEG performed on 10/09/2016, there is slight improvement in the EEG background. Clinical correlation is recommended. [facility]
[2016-10-14] MEDS: MORPHINE SULFATE (100 MG/2 ML) 100 MG in SODIUM CHLORIDE 0.9% 100 ML IV SCH (07:29)
[2016-10-14 09:23] VITALS: BMI 29.1
--- NOTE | 2016-10-14 12:40 | PN ---
SUBJECTIVE: A 46-year-old white female with polysubstance overdose, status post intubation and multiple drug withdrawal. She has hope for improvement today as she has been placed on a hospice, has been given high doses of morphine, but patient is talking now, she is up talking , she states her name. She goes "My name is Padmini Kelley and I want some food. " The first time she has talked since she has been to the hospital. She still has some slowness with her speech and focusing and giving answers but at least she is talking. Recurrent consult with Neurology as patient is greatly improved and possibly will start feeding her and do a swallow study. She is seen for abdominal pain by GI which I do not understand, apparently GI doctor dictated on the wrong chart, but will probably start feeding the patient after the patient continues to wake up and if she is alert and oriented x3 as time goes on, she will take over her own medical care. Otherwise, await for guardian or a power of mannequin wig maker to agree to a swallow eval and start feeding her if she continues to wake up. VASQUEZ
--- NOTE | 2016-10-14 15:17 | P.DS ---
Providers Date of admission: 10/10/16 13:05 Expected date of discharge: 10/14/16 Attending physician: Angelito Galvan [facility] Course: 46-year-old female who initially was admitted via the EMS system on October 02 unresponsive suspect due to a drug overdose resulting in acute respiratory failure requiring intubation. Apparently the patient was at home and her roommate found her unresponsive with multiple bottles of pills area the roommate forced the patient to vomit before the EMS arrived. When the EMS arrived they did not find any pill fragments in her vomit. EMS did give the patient Narcan with slight improvement of her symptoms. It was unclear what medication the patient did consume however there was speculation it was morphine , Neurontin as well as baclofen. The patient's urine drug screen was positive for opiates, antidepressives, cocaine, marijuana. Patient control was contacted they did assist in the care. Upon examination in the emergency room the patient was intubated for airway protection and admitted to the intensive care unit. It was noted according to the timeline of when the patient ingested pills and vomited until the roommate called EMS was a 12 hour span that the patient was "passed out it's unclear if the patient woke up and took more pills in between vomiting however the patient was found unresponsive 12 hours later she was admitted to the intensive care unit with an doughnut maker managing clinical course. A neurology consultation was requested as well. Patient was followed closely was able to be stabilized and extubated and moved out of the intensive care unit to the [facility] floor. The family had opted for hospice care. Patient's legal guardian was her daughter patient was seen on October 14 was making a slow improvement was able to state her name had no recall of the events was able to identify family members did have a bedside swallow eval done which indicated the patient could be started on a prueed diet with aspiration precautions clinically the patient made slow improvement the family opted to discontinue the hospice care. Patient was discharged from hospice care and admitted to the [facility] floor family wanted the patient to continue to be in no code status for now they would reevaluate and make a decision. But since the patient made clinical improvement they will wanted hospice care stopped in recent medical care Plan - Discharge Summary New Discharge Prescriptions: Continue Loratadine 10 mg PO DAILY Morphine Sulfate [Ms Contin] 15 mg PO HS Morphine Sulfate [Ms Contin] 30 mg PO QAM Oxybutynin Chloride [Ditropan] 5 mg PO TID Naproxen 500 mg PO Q12H Folic Acid 0.4 mg PO DAILY Levothyroxine Sodium [Synthroid] 137 mcg PO DAILY Gabapentin 600 mg PO Q4H Baclofen [Lioresal] 20 mg PO TID Pyridoxine [Vitamin B-6] 50 mg PO DAILY Cyanocobalamin (Vitamin B-12) [Vitamin B-12] 1,000 mcg PO DAILY Choline Citrate 650mg 650 mg PO BID Omeprazole 40 mg PO DAILY Nortriptyline [Pamelor] 100 mg PO HS HYDROcodone/IBUPROFEN [Xylon 10-200 mg Tablet] 0.5 tab PO BID Discharge Medication List Baclofen [Lioresal] 20 mg PO TID 10/02/16 [History] Choline Citrate 650mg 650 mg PO BID 10/02/16 [History] Cyanocobalamin (Vitamin B-12) [Vitamin B-12] 1,000 mcg PO DAILY 10/02/16 [ History] Folic Acid 0.4 mg PO DAILY 10/02/16 [History] Gabapentin 600 mg PO Q4H 10/02/16 [History] HYDROcodone/IBUPROFEN [Xylon 10-200 mg Tablet] 0.5 tab PO BID 10/02/16 [History] Levothyroxine Sodium [Synthroid] 137 mcg PO DAILY 10/02/16 [History] Loratadine 10 mg PO DAILY 10/02/16 [History] Morphine Sulfate [Ms Contin] 15 mg PO HS 10/02/16 [History] Morphine Sulfate [Ms Contin] 30 mg PO QAM 10/02/16 [History] Naproxen 500 mg PO Q12H 10/02/16 [History] Nortriptyline [Pamelor] 100 mg PO HS 10/02/16 [History] Omeprazole 40 mg PO DAILY 10/02/16 [History] Oxybutynin Chloride [Ditropan] 5 mg PO TID 10/02/16 [History] Pyridoxine [Vitamin B-6] 50 mg PO DAILY 10/02/16 [History] Follow up Appointment(s)/Referral(s): Angelito Galvan MD [Primary Care Provider] - 1 Week
[2016-10-14] MEDS ORDERED: NON-FORMULARY DRUG (Gabapentin [Gabapentin] 600 MG) PO SCH (15:30)
[2016-10-14] MEDS ORDERED: IV VANCOMYCIN PER PHARMACY 1 EACH MISC MISCELLANE PRN (15:42)
[2016-10-14] MEDS ORDERED: SODIUM CHLORIDE 0.9% 1,000 ML IV SCH (15:45)
[2016-10-14] MEDS ORDERED: BACLOFEN 10 MG TAB PO SCH (16:00)
[2016-10-14] MEDS ORDERED: PIPERACILLIN-TAZOBACTAM 3.375 GM in DEXTROSE/WATER 1 50ML.BAG IVPB SCH (16:00)
[2016-10-14] MEDS ORDERED: OXYBUTYNIN CHLORIDE 5 MG TAB PO SCH (16:00)
[2016-10-14] MEDS ORDERED: VANCOMYCIN 1,750 MG in SODIUM CHLORIDE 0.9% 250 ML IVPB SCH (20:00)
[2016-10-14] MEDS ORDERED: HYDROCODONE PO SCH (21:00)
[2016-10-14] MEDS ORDERED: FAMOTIDINE 20 MG TAB PO SCH (21:00)
[2016-10-14] MEDS ORDERED: MORPHINE SULFATE ER 15 MG TABLET PO SCH (21:00)
[2016-10-14] MEDS ORDERED: IBUPROFEN PO SCH (21:00)
[2016-10-14] MEDS ORDERED: NAPROXEN 250 MG TAB PO SCH (21:00)
[2016-10-14] MEDS ORDERED: NORTRIPTYLINE 25 MG CAP PO SCH (21:00)
[2016-10-14] MEDS ORDERED: [UNRECOGNIZED DRUG - OTHER] PO SCH (21:00)
[2016-10-15] MEDS ORDERED: LEVOTHYROXINE 137 MCG TAB PO SCH (06:30)
[2016-10-15] MEDS ORDERED: PANTOPRAZOLE 40 MG TABLET PO SCH (07:30)
[2016-10-15] MEDS ORDERED: MORPHINE SULFATE ER 30 MG TABLET PO SCH (09:00)
[2016-10-15] MEDS ORDERED: CYANOCOBALAMIN 500 MCG TAB PO SCH (12:00)
[2016-10-15] MEDS ORDERED: FOLIC ACID 1 MG TAB PO SCH (12:00)
== END 2016-10-14 17:28 | disposition home or self-care (01) | DRG 70 ==
LOC: 6ICU 13:05 → 5MS5E 18:14
PROVIDERS: ADMIT Family Medicine; ATTEND Family Medicine
DX: G93.41 Metabolic encephalopathy (principal); J69.0 Pneumonitis due to inhalation of food and vomit; F19.239 Other psychoactive substance dependence with withdrawal, unspecified; E03.9 Hypothyroidism, unspecified; G89.4 Chronic pain syndrome; Z51.5 Encounter for palliative care; Z79.899 Other long term (current) drug therapy; Z79.891 Long term (current) use of opiate analgesic; Z79.1 Long term (current) use of non-steroidal anti-inflammatories (NSAID); Z91.5 Personal history of self-harm; Z88.6 Allergy status to analgesic agent; Z91.011 Allergy to milk products
CPT/HCPCS: 95819